=== PATIENT | male | born 1960 | race Caucasian/White ===

== ENCOUNTER 2025-02-11 16:10 | Inpatient (IN) | payer OTHER, SELFPAY ==
[2025-02-10] VITALS (7 sets, daily range): BP systolic 99–126; BP diastolic 68–81; BMI 32.2; BMI 31.7
[2025-02-10] MEDS: TYLENOL 1000 MG PO (16:27)
[2025-02-10 16:54] LABS: Hematocrit 45.2 % (39.0-52.0); Hemoglobin 15.6 g/dL (13.0-18.0); Mean Corp Hgb Conc. 34.5 g/dL (33.0-37.0); Mean Corpuscular Volume 88.5 fL (80.0-94.0); Nucleated Red Blood Cells % 0 % (-); Platelet Count 144 10^3/uL (130-400); Red Cell Dist. Width 12.7 % (11.5-14.5)
[2025-02-10 17:11] LABS: ALT (SGPT) 34 U/L (0-50); AST (SGOT) 51 U/L (17-59); Albumin 4.4 g/dl (3.5-5.0); Alkaline Phosphatase 93 U/L (38-126); Blood Urea Nitrogen 19 mg/dl (9-20); Calcium 9.5 mg/dl (8.4-10.2); Carbon Dioxide 22 mmol/L (22-30); Chloride 100 mmol/L (98-107); Glucose 163 mg/dl (70-99); Potassium 4.0 mmol/L (3.5-5.1); Sodium 132 mmol/L (135-145); Total Protein 7.3 g/dl (6.3-8.2); eGFR 56.48
[2025-02-10 17:12] LABS: COVID-19 Antigen Negative (Negative)
[2025-02-10 18:29] LABS: Urine Character Clear (Clear)
[2025-02-10] MEDS: NSS 1000 IV ×2 (18:30→21:04)
[2025-02-10 18:44] LABS: Urine Squamous Cell 0-2 /LPF (Few)
--- NOTE | 2025-02-10 18:57 | ED.GENMED ---
History of Present Illness
General
Chief Complaint: Fever
Source: patient and spouse
Exam Limitations: none
Time Seen by Provider: 02/10/25 17:38
Nursing documentation reviewed up to this point in time: agreed with
History of Present Illness
History of Present Illness:
65-year-old male with no reported chronic medical issues presents to the emergency department for evaluation of fever with myalgias and arthralgias. Patient reports that about 5 days ago he began feeling severe fatigue and myalgias and symptoms
have been persistent since then. He reports diffuse arthralgias associated and fevers with a Tmax of 103 �F. He has had mild cough, mild sore throat. He says he has had mild rhinorrhea. He has a mild headache. He denies any chest pain or
shortness of breath. He denies any abdominal pain. He has not had any nausea, vomiting, diarrhea although he has had generally poor appetite. He denies any dysuria, hematuria, change in urinary frequency. Today he noticed a diffuse rash which is
not painful or pruritic mainly on his back and his legs. He denies any recent travel. He denies any recent bug bites. His was recently sick with transient GI illness but none of the symptoms that patient is having today.
Past History
Past History
ED Past Medical History: None
ED Past Surgical History: None
Social History
Tobacco: Non-smoker
Alcohol: None
Drug: None
Living: with family
Employment: Employed
Review of Systems
Review of Systems
All Other Systems: ROS reviewed and negative except as documented in HPI and ROS
Constitutional: Reports fever, fatigue and chills
EENT: Reports sore throat and runny nose
Respiratory: Reports cough; Denies trouble breathing
Cardiac: Denies chest pain
ABD/GI: Reports anorexia; Denies abdominal pain, nausea, vomiting or diarrhea
: Denies dysuria, frequency, flank pain or dark urine
Musculoskeletal: Reports joint pain and muscle pain; Denies neck pain or back pain
Skin: Reports rash
Neurological: Reports headache; Denies dizzy
Phy Exam
Physical Exam
Physical Exam:
General: Awake, alert, oriented x3; no acute distress
Head: Normocephalic, atraumatic
Eyes: Conjunctiva normal, EOMI, pupils equal round reactive to light bilaterally
Ears: TMs clear bilaterally
Throat: Airway intact, handling secretions, moist mucous membranes with no oral lesions
Neck: Trachea midline, supple without meningismus
Lungs: Clear to auscultation bilaterally, no wheezing, rales, rhonchi
Heart: Regular rate and rhythm, no murmurs, gallops, or rubs�triage tachycardia resolved by my assessment
Abd: Soft, non distended, nontender to deep palpation with no masses
Neuro: No gross deficits
Skin: Patient has maculopapular rash across back as well as some scattered areas on the inner thighs bilaterally�rash spares face, palms, soles of the feet, no rash noted on chest or abdomen
Extremities: No edema in extremities, equal pulses in all extremities
Scores
Heart Failure Risk
Heart Failure Risk Score: Not Applicable
Heart Score for Chest Pain Patients
STEMI patient?: Not applicable
Withdrawal Assessment of Alcohol
Withdrawal Assessment Completed?: Not applicable
Sepsis
Sepsis Screening
Sepsis Assessment: Sepsis Ruled Out
Sepsis Screen
Sepsis Screen: Sepsis Ruled Out
Date: 02/10/25
Time: 21:00
Course
Orders/Labs/Results
Orders:
Orders
02/10/25 16:25
Acetaminophen [Tylenol] 1,000 mg .ROUTE .STK-MED ONE
02/10/25 16:27
Acetaminophen [Tylenol] 1,000 mg PO NOW STA
02/10/25 16:40
COVID-19 Antigen Urgent
Source: Nasal Swab
Complete Blood Count/With Diff Urgent
Comprehensive Metabolic Panel Urgent
Creatine Phosphokinase Urgent
Comment: ADD ON
Lactic Acid Q4H
Comment: ON ICE, CANCEL 2ND ORDER IF FIRST LACTIC ACID LEVEL <2
Lyme Progressive Urgent
Date Specimen was Collected: 02/10/25
Time Specimen was Collected: 16:23
Monotest Urgent
Comment: ADD ON
Blood Culture Q20M
BETSY Source: Blood/Venous
Specimen Description:
Comment: Urgent from separate sites. If patient screens positive for possible sepsis
INF RAPID [Influenza A+B Rapid Molecular] Urgent
BETSY Source: Nasal Swab
Specimen Description:
02/10/25 17:42
Add On- LAB Urgent
Tests Added?: CPK
0.9% Sodium Chloride 1000 ml [Nss] 1,000 ml IV BOLUS
CR Chest - 2 Views Urgent
Comment:
Reason For Exam: fatigue, fever
02/10/25 17:46
Urinalysis Reflex To Culture Urgent
Date Specimen was Collected: 02/10/25
Time Specimen was Collected: 16:23
Urine Microscopic Reflex Cult Urgent
Urine Culture Urgent
BETSY Source: U
Specimen Description:
Date Specimen was Collected: 02/10/25
Time Specimen was Collected: 16:23
02/10/25 17:51
Add On- LAB Urgent
Tests Added?: lyme progressive
02/10/25 19:05
Add On- LAB Urgent
Tests Added?: Monotest
02/10/25 19:13
Influenza A+B Rapid Molecular Urgent
BETSY Source: Nasal Swab
Specimen Description:
02/10/25 20:42
Lactic Acid Q4H
Comment: ON ICE, CANCEL 2ND ORDER IF FIRST LACTIC ACID LEVEL <2
Abnormal Lab Results
02/10/25 02/10/25
16:40 17:46
WBC 17.5 H 10^3/uL
(4.8-10.8)
MPV 10.9 H fL
(7.4-10.4)
Abs Immat Gran (auto) 0.1 H 10^3/uL
(0-0.05)
Absolute Neuts (auto) 14.5 H 10^3/uL
(1.4-6.5)
Absolute Lymphs (auto) 0.9 L 10^3/uL
(1.2-3.4)
Absolute Monos (auto) 2.0 H 10^3/uL
(0.1-0.6)
Immature Gran % 0.6 H %
(0-0.5)
Neutrophils % 82.8 H %
(42.2-75.2)
Lymphocytes % 5.1 L %
(20.5-51.1)
Monocytes % 11.3 H %
(1.7-9.3)
Sodium 132 L mmol/L
(135-145)
Creatinine 1.4 H mg/dL
(0.7-1.3)
Glucose 163 H mg/dl
(70-99)
Lactic Acid 2.1 H mmol/L
(0.7-2.0)
Total Bilirubin 1.5 H mg/dl
(0.2-1.3)
Creatine Kinase 201 H U/L
(55-170)
Urine Ketones 1+ A
(Negative)
Ur Occult Blood Reflex 4+ A
(Negative)
Urine Bilirubin 1+ A
(Negative)
Urine Urobilinogen 2+ A
(Neg - 1+)
Leukocyte Esterase Rfl 1+ A
(Negative)
Urine RBC 3-6 A /HPF
(0-2)
Urine Bacteria (Reflex) Few A
(Negative)
Urine Albumin (Reflex) 3+ A
(Neg - Trace)
02/10/25 16:40
02/10/25 16:40
Vital Signs
Initial and Last Documented VS:
Initial Vital Signs
Temp Pulse Resp BP Pulse Ox
39.6 C H 119 20 120/80 95
02/10/25 16:18 02/10/25 16:18 02/10/25 16:18 02/10/25 16:18 02/10/25 16:18
Last Documented Vital Signs
Temp Pulse Resp BP Pulse Ox
36.8 C 87 16 119/77 96
02/10/25 20:44 02/10/25 19:01 02/10/25 19:01 02/10/25 19:12 02/10/25 19:01
MDM/Problems Addressed
Differential Diagnosis Includes:
Viral illness, pneumonia, UTI, Lyme's, vasculitis, bacteremia
MDM/Problems Addressed:
65-year-old male presents for evaluation of fever with myalgias and arthralgias, fatigue as well as some URI symptoms. He is tachycardic and febrile on arrival here although vital signs have normalized by my assessment after receiving Tylenol in
triage. Physical exam is as above. Suspect that this is likely viral illness, rash is very consistent with viral rash. He had lab work sent in triage including a CBC which did show a leukocytosis to 17.5. His CMP shows renal insufficiency with a
creatinine of 1.4�no baseline available for comparison. He has a marginal elevation of T. bili but normal AST and ALT, normal alk phos. CPK marginal. His urinalysis is positive for hematuria, positive for bilirubin as well. COVID swab negative.
His lactate is 2.1.
COVID and flu swabs are negative. Monospot is negative. Chest x-ray shows no acute disease. Clinical reassessment heart rate 80-90, no fever, normotensive. I do think this is likely a viral illness especially with no clear bacterial source
identified however on reassessment some of his rash appears to be slightly petechial and he has multiple SIRS criteria with abnormal renal function, elevated lactate and bilirubin level�concern/main differential would be sepsis. Vasculitis also
consideration. I do think he should be admitted to follow-up blood cultures, trend labs. Case discussed with hospitalist for admission. Will defer to hospitalist on empiric antibiotics at this point with no clear bacterial source of infection
identified and stable hemodynamics.
*Radiology
Radiology exam reviewed: preliminary read by ED provider
*Pulse Oximetry
SaO2: 95
Oxygen Mode of Delivery: Room air
Patient hypoxic: no (95%)
*Critical Care Note
Total Time (30-74mins, 75-104mins- exclusive of procedures): Not Applicable
Data Reviewed
Source: patient and spouse
Patient Management
Discussion with other providers: Hospitalist (Discussed with hospitalist)
Escalation/DeEscalation of care consider admission/obs:
Admission indicated
ED Attending Note
-
Portions of this chart may have been created with voice recognition software.� Occasional wrong word or��sound alike� substitutions may have occurred due to the inherent limitations of voice recognition software.
Discharge Plan
Departure
Patient Disposition: Admit
Date of Disposition: 02/10/25
Time of Disposition: 20:54
Admit to doctor: Gigi
Presentation/result/management discussed w/ accepting MD/DO: Hospitalist
Discharge Problem:
Fever, Rash
Prescriptions:
No Action
No Current Medications
0
Referrals:
NONE,* [Family Provider, Internal Medicine]
Interventions
Interventions:
*Risk Screen - Suicide Last Done: 02/10/25 16:18
*General Assessment Last Done: 02/10/25 17:44
*Neglect/Abuse Screening Last Done: 02/10/25 16:18
*ED- Fall Risk Assessment Last Done: 02/10/25 17:44
*ED COVID-19 Vaccine History Last Done: 02/10/25 17:44
ED- Neurological Assessment Last Done: 02/10/25 17:52
ED-Skin Assessment Last Done: 02/10/25 17:53
Discharge Date and Time
Print Language: SINHALA
--- NOTE | 2025-02-10 22:17 | HPS.HSE ---
Family Physician
-
Family Physician: * NONE
Chief Complaint
-
Fever / Myalgias
History of Present Illness
Patient is a 65y M with no significant PMH who presents to ED complaining of 5 days of fevers, myalgias and malaise. Patient states that he has had fever at home, mild sore throat and mild cough productive of clear mucus. He notes diffuse muscle
and joint aches. His was recently ill - but with primarily GI symptoms of which patient has none. No recent travel. He has two cats at home who do spend time out of doors. He is not an avid outdoorsman himself. No noted insect bites or
removed ticks, etc. Today he noted a red, non-itchy rash over his trunk and extremities.
Patient has been taking Advil with minimal relief of his symptoms and presents to the ED today for evaluation.
Medical History
Past Medical History
Past Medical History: Reports None
Past Surgical History: Reports Other
Additional Past Surgical History:
T&A
Social History
Tobacco: Non-smoker
Alcohol: Occasional
Drug: None
Personal:
Family History
Family History: Not pertinent
Allergies / Home Medications
Allergies reflects when Allergies were last updated in [employer].
Home Medications with original date entered in [employer]
Allergy/Medication List:
Allergies
Allergy/AdvReac Type Severity Reaction Status Date / Time
No Known Allergies Allergy Verified 02/10/25 16:18
Home Medications
ibuprofen 200 mg tablet 400 mg PO BIDPRN PRN mild pain 02/10/25
Review of Systems
-
History Source: Patient
A 12 point ROS was completed and negative except as noted: Yes
Constitutional: Reports Fever, Fatigue and Chills
EENT: Reports Sore Throat
Respiratory: Reports Cough; Denies Trouble Breathing
Cardiac: Denies Chest Pain or Palpitations
Abdomen/GI: Denies Abdominal Pain, Nausea, Vomiting or Diarrhea
: Denies Dysuria, Frequency or Flank Pain
Musculoskeletal: Reports Joint Pain and Muscle Pain; Denies Edema
Neurological: Denies Dizzy or Headache
Psych: Denies Depression or Anxiety
Physical Exam
Vital Signs
Vital Signs
Temp Pulse Resp BP Pulse Ox
98.3 F 87 16 121/68 96
02/10/25 20:44 02/10/25 19:01 02/10/25 19:01 02/10/25 21:00 02/10/25 19:01
Physical Exam
General: Other (65y M covered in multiple blankets.)
HEENT: Moist mucous membranes and PERRLA
Respiratory: Clear; No Wheezes, Rales or Rhonchi
Cardiac: S1/S2, Regular Rhythm and Tachycardia; No Murmur
GI: Soft, Non Tender, Non Distended and Normal Bowel Sounds
Musculoskeletal: No Clubbing, No Cyanosis and No Edema
Skin: Other (Diffuse maculopapular rash over trunk and extremities. Not raised / crusted. No blisters / bullae.)
Neuro: AO x 3
Laboratory Results
-
02/10/25 16:40
02/10/25 16:40
Laboratory Results
Lactic Acid 2.2 mmol/L (0.7-2.0) H 02/10/25 20:42
Total Bilirubin 1.5 mg/dl (0.2-1.3) H 02/10/25 16:40
AST 51 U/L (17-59) 02/10/25 16:40
ALT 34 U/L (0-50) 02/10/25 16:40
Alkaline Phosphatase 93 U/L (38-126) 02/10/25 16:40
Impression/Plan
-
A/P: Patient is a 65y M with no significant PMH who presents to ED complaining of 5 days of fevers and myalgias.
Febrile Illness
Rash
- Observe overnight for further evaluation and treatment.
- Suspect viral process with fever, rash, etc.
- Rule out Lyme, etc. Possible bronchitis.
- CXR unremarkable. COVID negative. Flu negative.
- UA not suggestive of infection.
- Cover with doxycycline for now.
- IVF support, antipyretics, etc.
- Follow fever curve, culture data , etc.
- ID evaluation for additional recommendations.
GEE v CKD
- SCr = 1.4 with no prior values for comparison.
- ? GEE due to acute illness and NSAID use?
- Hold NSAIDs acutely.
- IVFs as noted above.
- Follow renal function for 48-72 hours to establish baseline.
DVT Prophylaxis: SCDs
Code Status: Full
[2025-02-10] MEDS: LR 1000 IV (23:59)
[2025-02-11] MEDS: TYLENOL 650 MG PO ×4 (01:09→19:19)
[2025-02-11 01:35] VITALS: BP 109/74
--- NOTE | 2025-02-11 02:07 | PTCARENOTE ---
2324 pt is aaox3, [id number] BB=812, reports of headache 08/13. pt states he has a decrease appetite and possible weight loss but is unsure. pt has a rash all over - states he didn't notice it until he was in the emergency room and says it is not
itchy. pt has an occasional dry cough, lungs CTA. covid, flu, and mono all negative.
pt HR 113 - EKG - performed: SINUS TACHYCARDIA
S/w DAVID Berkowitz - obtain orders for blood cultures.
0113 [id number]=[id number], HR110, KD=380/74. administered Tylenol
[2025-02-11 05:24] VITALS: BMI 31.7
[2025-02-11 05:25] VITALS: BP 104/73
[2025-02-11 05:52] LABS: Hematocrit 41.7 % (39.0-52.0); Hemoglobin 14.3 g/dL (13.0-18.0); Mean Corp Hgb Conc. 34.3 g/dL (33.0-37.0); Mean Corpuscular Volume 90.1 fL (80.0-94.0); Platelet Count 127 10^3/uL (130-400); Red Cell Dist. Width 13.2 % (11.5-14.5)
[2025-02-11 06:06] LABS: Blood Urea Nitrogen 20 mg/dl (9-20); Calcium 8.8 mg/dl (8.4-10.2); Carbon Dioxide 22 mmol/L (22-30); Chloride 105 mmol/L (98-107); Estimated Creatinine Clearance 70 ml/min; Glucose 123 mg/dl (70-99); Potassium 4.4 mmol/L (3.5-5.1); Sodium 135 mmol/L (135-145); eGFR > 60.00
[2025-02-11 07:22] VITALS: BP 128/76
[2025-02-11] MEDS: LR 1000 IV ×3 (08:45→21:28)
[2025-02-11] MEDS: VIBRAMYCIN 100 MG PO ×2 (08:47→19:19)
--- NOTE | 2025-02-11 10:50 | CON.ID ---
Consultation
-
Date/Time Consultation Requested: February 10, 2025 [id number]
Date/Time Consultation Performed: February 11, 2025 1050
Requesting Provider: Dr. Mike Luis
Performing Provider: Dr. Paulina Gomez
Reason for Consultation: Fever
Chief Complaint / Past History
Chief Complaint
Fever
History of Present Illness
65-year-old male without past medical history who presented to the ED last night February 10 due to persistent fever. He reports fevers started approximately 6 days ago with associated chills. He complains of profound myalgias. Positive weakness.
Positive sore throat, and mild cough nonproductive. No shortness of breath. Positive mild rhinorrhea. No sinus congestion. No headaches. No nausea vomiting abdominal pain or diarrhea. No urine symptoms. He did not notice the rash until he
came to the ER. Patient has diffuse rash that is nonpruritic. He states he lives near the [facility]. He has 2 cats that go outside. His recently had GI illness. No other ill contacts. No travel history.
Past History
Past Medical History: None
Additional Past Surgical History:
Tonsillectomy
Allergy History:
No Known Allergies Allergy (Verified 02/10/25 16:18)
Medications Reviewed: Yes
Current Antibiotics:
Doxycycline 100mg po bid
Social History
Tobacco: Non-Smoker
Alcohol: Occasional
Drug: None
Personal:
Living: With Family (2 cats)
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
Family History
Family History: Not Pertinent
Review of Systems
Review of Systems
General: Fever and Chills
HEENT: Pharyngitis; Negative Headache
Respiratory: Cough; Negative Sputum Production
Gasteroenterology: Negative Nausea, Vomiting or Diarrhea
Genital / Urological: Negative Dysuria or Flank Pain
Endocrine: Weakness
Musculoskeletal: Myalgias
Skin / Hair / Nails: Rash
Neurological: Negative Dizziness
Vital Signs
Temp Pulse Resp BP Pulse Ox
101.1 F H 110 20 128/76 95
02/11/25 07:22 02/11/25 07:22 02/11/25 07:22 02/11/25 07:22 02/11/25 07:22
Selected Entries
02/10/25
16:18 02/11/25
01:13
Temp 103.2 F H 103 F H
Physical Exam
Physical Exam
Constitutional: No Acute Distress
Head: Other (No frontal or maxillary sinus tenderness)
Eyes: No Conjunctival Hemorrhage and Sclera Anicteric
Pharynx: Benign
Oral: No Ulcers
Cardiovascular: Regular Rate and S1/S2
Pulmonary: Clear
Gastrointestinal: Soft, Non Tender, Non Distended and Normal Bowel Sounds
Genito-Urinary: Negative CVA Tenderness
Extremities: Negative Edema
Musculoskeletal: Negative Joint Swelling, Joint Effusion or Spinal Tenderness
Skin: Other (Diffuse macular pink rash on chest, back, heart upper arms, feet but not palms and soles, lower extremities. Some of the rash with target lesions.)
Neurological: AO x 3
Lab / Diagnostic Study Results
02/11/25 05:32
02/11/25 05:32
Abs Immat Gran (auto) 0.1 10^3/uL (0-0.05) H 02/10/25 16:40
Absolute Neuts (auto) 14.5 10^3/uL (1.4-6.5) H 02/10/25 16:40
Absolute Lymphs (auto) 0.9 10^3/uL (1.2-3.4) L 02/10/25 16:40
Absolute Monos (auto) 2.0 10^3/uL (0.1-0.6) H 02/10/25 16:40
Absolute Basos (auto) 0.0 10^3/uL (0-0.2) 02/10/25 16:40
Immature Gran % 0.6 % (0-0.5) H 02/10/25 16:40
Neutrophils % 82.8 % (42.2-75.2) H 02/10/25 16:40
Lymphocytes % 5.1 % (20.5-51.1) L 02/10/25 16:40
Monocytes % 11.3 % (1.7-9.3) H 02/10/25 16:40
Eosinophils % 0.0 % (0-6) 02/10/25 16:40
Basophils % 0.2 % (0-2) 02/10/25 16:40
Lactic Acid 2.0 mmol/L (0.7-2.0) 02/11/25 05:32
Ur Squamous Epith Cells 0-2 /LPF (Few) 02/10/25 17:46
Microbiology Results
Micro:
02/11/25 06:05 Respiratory Culture - Final
Sputum Gram Stain - Final
02/11/25 01:34 Blood Culture - Pending
Blood/Venous
02/11/25 00:59 Blood Culture - Pending
Blood/Venous
02/11/25 00:59 Blood Parasites Smear - Pending
Blood/Venous
02/10/25 19:13 Influenza Types A & B (BESS) - Final
Nasal Swab Negative for Influenza A & B, NAAT
Negative results must be combined with clinical observations
and patient history.
Nucleic Acid Amplification test (NAAT)performed on the
[employer] ID NOW platform.
02/10/25 17:46 Urine Culture - Pending
Urine
02/10/25 16:40 Blood Culture - Pending
Blood/Venous
02/10/25 16:40 Influenza Types A & B (BESS) - Final
Nasal Swab Negative for Influenza A & B, NAAT
Negative results must be combined with clinical observations
and patient history.
Nucleic Acid Amplification test (NAAT)performed on the
[employer] ID NOW platform.
02/10/25 CXR: No radiographic evidence for pneumonia.
Assessment / Plan
# Fever
# leukocytosis
# Diffuse rash
# Pharyngitis/bronchitis
-CXR negative
- Blood cx's pending
- Doubt tick-borne illness, but Lyme, babesia, RMSF, Anaplasma, Ehrlichia work-up labs pending.
- Check for rapid Group A strep
- Rash - suspect erythema multiforme
Probably Mycoplasma illness
- Continue doxycycline po
-Trend fever/wbc.
Care Review
Plan reviewed with: Physician (Dr. Velasco)
[2025-02-11] MEDS: LOVENOX SC (14:42)
--- NOTE | 2025-02-11 15:25 | W.PN.HOSP.TC ---
Today's Communication/Plan
-
CT scan of chest
Assessment / Plan
Assessment / Plan
-CXR negative
- Blood cx's pending
- Doubt tick-borne illness, but Lyme, babesia, RMSF, Anaplasma, Ehrlichia work-up labs pending.
- Check for rapid Group A strep
- Rash - suspect erythema multiforme
Probably Mycoplasma illness
- Continue doxycycline po
-Trend fever/wbc.
A/P: Patient is a 65y M with no significant PMH who presents to ED complaining of 5 days of fevers and myalgias.
Sepsis with fever, leukocytosis, Lactic Acidosis, rash of mycoplasma vs viral origin felt to be most likely
Febrile Illness
Rash
- Suspect viral process with fever, rash, etc.
- Rule out Lyme, etc. Possible bronchitis.
- CXR unremarkable. COVID negative. Flu negative.
- UA not suggestive of infection.
- Cover with doxycycline for now.
- IVF support, antipyretics, etc.
- Follow fever curve, culture data , etc.
- ID evaluation for additional recommendations. Reviewed with Dr. Gomez, input appreciated
Will order noncontrast CT scan of chest, probably atelectatic rales, though concern for early viral/mycoplasma PNA. No evidence of meningeal signs, thus LP is not warranted at this time
WBC 17.5-->18.5
Lactic Acid 2.2-->2.2-->2.0
GEE v CKD
- SCr = 1.4-->1.2
better, will continue IVF
- ? GEE due to acute illness and NSAID use?
- Hold NSAIDs acutely.
- IVFs as noted above.
- Follow renal function for 48-72 hours to establish baseline.
DVT Prophylaxis: SCDs
change status to full admit
Code Status: Full
Anticipated Discharge: 24 - 48 hours
Subjective/Interval History
-
Date of Service: February 11, 2025
Does not yet feel well, but not as ill as last evening
Objective Data
-
Labs:
Laboratory Results
02/11/25
05:32
WBC 18.5 H
Hgb 14.3
Hct 41.7
Plt Count 127 L
Sodium 135
Potassium 4.4
Chloride 105
Carbon Dioxide 22
BUN 20
Creatinine 1.2
Glucose 123 H
Calcium 8.8
Vital Signs:
Vital Signs
Temp Pulse Resp BP Pulse Ox
101.1 F H 110 20 128/76 99
02/11/25 07:22 02/11/25 07:22 02/11/25 07:22 02/11/25 07:22 02/11/25 08:45
I&O
02/10/25 02/11/25 02/12/25
06:59 06:59 06:59
Intake Total 1794
Balance 1794
Review of Systems
-
History Source: Patient and Family ( at bedside)
Constitutional: Reports Fever (103.2 on admission, 101.1 this morning, 100.7 currently)
EENT: Reports No Symptoms Reported
Respiratory: Reports Cough (on deep inspirations)
Cardiac: Reports No Symptoms; Denies Chest Pain
Abdomen/GI: Reports No Symptoms
Genitourinary: Reports No Symptoms
Musculoskeletal: Reports No Symptoms
Neuro: Reports No Symptoms
Physical Exam
-
General: Well Developed, Well Nourished and No Apparent Distress
HEENT: Normocephalic, Atraumatic, Moist Mucous Membranes and Other (no nuchal rigidity)
Respiratory: Rales (bibasilar atelectatic rales on deep inspiration); Negative Wheezes
Cardiac: Regular Rhythm and S1/S2
GI: Soft, Nontender and Nondistended
Skin: Warm, Dry and Rash (diffuse macular rash)
Neuro: Awake, Alert and Oriented
[2025-02-11 15:28] VITALS: BP 149/95
--- NOTE | 2025-02-11 17:19 | CM ---
Pt off floor . ATKINS letter left at bedside. IA needed.
[2025-02-11 23:00] VITALS: BP 112/75
[2025-02-12] MEDS: TYLENOL 650 MG PO ×3 (03:38→13:50)
[2025-02-12] MEDS: LR 1000 IV ×3 (05:44→23:57)
[2025-02-12 06:56] LABS: Hematocrit 36.8 % (39.0-52.0); Hemoglobin 12.5 g/dL (13.0-18.0); Mean Corp Hgb Conc. 34.0 g/dL (33.0-37.0); Mean Corpuscular Volume 89.1 fL (80.0-94.0); Platelet Count 120 10^3/uL (130-400); Red Cell Dist. Width 13.2 % (11.5-14.5)
[2025-02-12 07:00] VITALS: BP 121/71
[2025-02-12 07:03] LABS: ALT (SGPT) 26 U/L (0-50); AST (SGOT) 50 U/L (17-59); Albumin 2.9 g/dl (3.5-5.0); Alkaline Phosphatase 80 U/L (38-126); Blood Urea Nitrogen 19 mg/dl (9-20); Calcium 9.0 mg/dl (8.4-10.2); Carbon Dioxide 22 mmol/L (22-30); Chloride 103 mmol/L (98-107); Estimated Creatinine Clearance 84 ml/min; Glucose 121 mg/dl (70-99); Potassium 4.1 mmol/L (3.5-5.1); Sodium 132 mmol/L (135-145); Total Protein 5.5 g/dl (6.3-8.2); eGFR > 60.00
[2025-02-12 07:50] LABS: Reticulocyte Count 1.5 % (0.4-2.8)
[2025-02-12 07:57] LABS: LDH 352 U/L (120-246)
[2025-02-12] MEDS: LOVENOX SC (08:17)
[2025-02-12] MEDS: VIBRAMYCIN 100 MG PO ×2 (08:18→20:28)
[2025-02-12 08:29] LABS: Absolute Neutrophils -Man Diff 17.5 10^3/uL (1.4-6.5); Normal RBC Morphology Yes; Platelets Checked Yes; Total Cells Counted 100
--- NOTE | 2025-02-12 12:26 | W.PN.HOSP.TC ---
Addendum entered and electronically signed by Rigoberto Delcid MD 02/12/25 13:12:
mild thrombocytopenia
suspect reactive
check platelet associated Ab
Original Note:
Today's Communication/Plan
-
see PN
Assessment / Plan
Assessment / Plan
65yo M with no significant PMx came with 5 days of generalized malaise and fevers, developed macular radh on body. Also myalgia and arthralgia. Later signs of R eye conjuctivitis. Concern for viral disease vs thick-borne illness
A/P:
#Fever, macular non-pruritic rash
Doxy as per ID, since initially concern for mycoplasma pneumonia
Mononucleosis test neg
check lyme, blood for parasites, syphilis, HIV, Anaplasma/Erlychia, [place] spotted fever
Check LILIANA level
follow CBC
7 mm and 6 mm solid pulmonary nodules in the right middle lobe along the minor fissure with mild mediactinal lympadenopathy. Pulm consult
IVF
#b/l thyroid nodules
check TSH
outpatient US
#Mild indirect bilirubinemia
LDH in 300th - follow tred
most likely 2/2 acute disease
follow LFT
DVT ppx Lovenox
Full code
I have spent at least 58min reviewing chart, test results, communication with consultants and providing direct patient care
Anticipated Discharge: > 48 hours
Subjective/Interval History
-
Date of Service: February 12, 2025
Objective Data
-
Labs:
Laboratory Results
02/12/25 02/12/25
06:14 11:21
WBC 19.5 H Cancelled
Hgb 12.5 L Cancelled
Hct 36.8 L Cancelled
Plt Count 120 L Cancelled
Sodium 132 L
Potassium 4.1
Chloride 103
Carbon Dioxide 22
BUN 19
Creatinine 1.0
Glucose 121 H
Calcium 9.0
Total Bilirubin 1.5 H
AST 50
ALT 26
Alkaline Phosphatase 80
Vital Signs:
Vital Signs
Temp Pulse Resp BP Pulse Ox
99.7 F 114 20 121/71 99
02/12/25 07:00 02/12/25 07:00 02/12/25 07:00 02/12/25 07:00 02/12/25 08:20
I&O
02/11/25 02/12/25 02/13/25
06:59 06:59 06:59
Intake Total 1794 2460 / 246
Balance 1794 246 / 246
Review of Systems
-
History Source: Patient
All other systems: Reviewed and negative
Physical Exam
-
General: No Apparent Distress
HEENT: Normocephalic
Respiratory: Clear to Auscultation
Cardiac: Regular Rhythm
GI: Soft, Nontender and Nondistended
Skin: Rash
Neuro: Awake, Alert, Oriented and AO x 3
Psych: Calm
--- NOTE | 2025-02-12 14:25 | W.PN.ID1 ---
Date of Service
Date of Service: February 12, 2025
Today's Communication
Check [employer] [facility] resp virus panel
Assessment / Plan
# Fever - persists
# leukocytosis - trended up
# Diffuse rash - progress
# New Right conjunctivitis
# Pharyngitis/bronchitis
-CXR negative
- Blood cx's neg to date
- rapid Group A strep: negative
- Doubt tick-borne illness, but Lyme, babesia, RMSF, Anaplasma, Ehrlichia work-up labs pending.
- Syphilis pending
- Pt agreeable to HIV screen
- ? viral illness such as adenovirus, coxsackie
Ordered [employer] [facility] respiratory viral PCR panel
- ?mycoplasma/chlamydia
Continue empiric doxycyline for now.
- Trend temps/wbc/plt
Chief Complaint
-: Fever
Subjective / Review of Systems
Feels same with fatigue, myalgia. Sore throat improved. Rash progressed.
Vital Signs / Physical Exam
Vital Signs
Vital Signs
Temp Pulse Resp BP Pulse Ox
99.7 F 114 20 121/71 99
02/12/25 07:00 02/12/25 07:00 02/12/25 07:00 02/12/25 07:00 02/12/25 08:20
Selected Entries
02/12/25
03:30
Temp 102.2 F H
Physical Exam
Constitutional: No Acute Distress and Comfortable
Head: Other (No frontal or maxillary sinus tenderness)
Eyes: Other (right conjunctivitis )
Oropharyngeal: Negative Exudate or Ulcers
Cardiovascular: Regular Rate and S1/S2
Pulmonary: Clear
Gastrointestinal: Soft, Non Tender, Non Distended and Normal Bowel Sounds
Genito-Urinary: Negative CVA Tenderness
Extremities: Negative Edema
Skin: Rash (Diffuse morbilliform rash limbs, torso, chest, abd; some annular ringform rash)
Neurological: AO x 3
Objective Data
Lab Data
Lab Results
02/12/25 11:21
02/12/25 06:14
ESR 42 mm/hour (0-20) H 02/12/25 06:14
Estimated Creat Clear 84 ml/min 02/12/25 06:14
Lactic Acid 2.0 mmol/L (0.7-2.0) 02/11/25 05:32
Total Bilirubin 1.5 mg/dl (0.2-1.3) H 02/12/25 06:14
AST 50 U/L (17-59) 02/12/25 06:14
ALT 26 U/L (0-50) 02/12/25 06:14
Alkaline Phosphatase 80 U/L (38-126) 02/12/25 06:14
Most recent labs reviewed.
Micro Results:
02/10/25 17:46 Urine Culture - Final
Urine NO GROWTH
02/11/25 15:15 Streptococcus Screen (BETSY) - Preliminary
Throat/Pharynx Culture in Progress
Streptococcus Rapid Screen - Final
Rapid Strep Screen (Group A) Negative
02/11/25 01:34 Blood Culture - Preliminary
Blood/Venous No Growth in 24 hours- Final report to follow
02/11/25 00:59 Blood Culture - Preliminary
Blood/Venous No Growth in 24 hours- Final report to follow
02/10/25 16:40 Blood Culture - Preliminary
Blood/Venous No Growth in 24 hours- Final report to follow
02/11/25 06:05 Respiratory Culture - Final
Sputum Gram Stain - Final
02/11/25 00:59 Blood Parasites Smear - Pending
Blood/Venous
02/10/25 19:13 Influenza Types A & B (BESS) - Final
Nasal Swab Negative for Influenza A & B, NAAT
Negative results must be combined with clinical observations
and patient history.
Nucleic Acid Amplification test (NAAT)performed on the
[employer] NOW platform.
02/10/25 16:40 Influenza Types A & B (BESS) - Final
Nasal Swab Negative for Influenza A & B, NAAT
Negative results must be combined with clinical observations
and patient history.
Nucleic Acid Amplification test (NAAT)performed on the
[employer] platform.
02/10/25 CXR: No radiographic evidence for pneumonia.
Care Review
Plan reviewed with: Physician (Dr. Delcid)
[2025-02-12 14:45] VITALS: BP 108/58
--- NOTE | 2025-02-12 14:45 | PTCARENOTE ---
02/12- Administered Tylenol PRN as ordered for 99.7 fever ~70minutes ago. Patient now has chills, is lethargic, and current T=101.2. Notified Physician. Administered 2 ice packs. Continuing fluids as ordered. Continue to monitor.
[2025-02-12 15:00] VITALS: BP 122/83
[2025-02-12 16:29] LABS: Ferritin 9620.0 ng/ml (17.9-464.0)
--- NOTE | 2025-02-12 16:52 | CON.PUL ---
Consultation
Consultation Request
Date/Time Consultation Requested: 02/12
Date/Time Consultation Performed: 02/12
Reason for Consultation: Pulmonary nodule
Medical History
-
History of Present Illness:
History obtained from the patient also reviewing records. Patient 65-year-old male without significant past medical history presents with 5 days of fevers, myalgias, general weakness. He also describes muscle and joint aches. He admits to recent
sick contact with his . He has 2 cats at home, denies significant insect bites, however he developed a rash over the last 24 hours. Upon arrival to [facility], temperature 39.6, pulse 119, breathing at 20, blood pressure 120/80, 95%.
Creatinine was 1.4. COVID and flu swabs negative. Chest x-ray without acute findings. CT chest was obtained which showed nodular abnormality which we are asked to comment on. Hospital course reviewed. Workup negative to date
Patient admits to developing a rash on the day of his first hospital stay. He denies any travel. He denies any recurrent pneumonias, skin infections. He admits to chronic postnasal drip.
He admits to questionable gasping with sleeping which he is only noticed over the past 5 days. He denies any weight loss. He is up-to-date with his colonoscopy
.
PMH: None
Past Medical History
Past Medical History: None (See above)
Past Surgical History: None (See above)
Social History
Tobacco: Non-smoker (Minimal as a teenager)
Alcohol: Occasional
Drug: None
Personal:
Living: With Family
Employment: Employed ([employer])
Family History
Family History: Other (2 children healthy. 2 siblings healthy. Family history negative for cancer)
Allergies / Home Medications
Allergies
Allergy/AdvReac Type Severity Reaction Status Date / Time
No Known Allergies Allergy Verified 02/10/25 16:18
Home Medications
�Medication �Instructions �Recorded �Confirmed �Last Taken �Type
ibuprofen 200 mg tablet 400 mg PO BIDPRN PRN mild pain 02/10/25 02/10/25 02/10/25 History
turmeric-turmeric root extract 1 DAILY PRN ALLERGIES 02/11/25 Unknown History
Review of Systems
-
All other systems: Negative unless noted
Vitals / Labs / Diagnostic Testing
Vital Signs
Temp Pulse Resp BP Pulse Ox
102.8 F H 111 20 122/83 92
02/12/25 15:00 02/12/25 15:00 02/12/25 15:00 02/12/25 15:00 02/12/25 15:00
Lab Data
02/12/25 11:21
02/12/25 06:14
Microbiology
02/10/25 16:40 Blood/Venous Blood Culture - Preliminary
No Growth in 48 hours- Final report to follow
02/10/25 17:46 Urine Urine Culture - Final
NO GROWTH
02/11/25 15:15 Throat/Pharynx Streptococcus Screen (BETSY) - Preliminary
Culture in Progress
02/11/25 15:15 Throat/Pharynx Streptococcus Rapid Screen - Final
Rapid Strep Screen (Group A) Negative
02/11/25 01:34 Blood/Venous Blood Culture - Preliminary
No Growth in 24 hours- Final report to follow
02/11/25 00:59 Blood/Venous Blood Culture - Preliminary
No Growth in 24 hours- Final report to follow
02/11/25 06:05 Sputum Respiratory Culture - Final
02/11/25 06:05 Sputum Gram Stain - Final
02/10/25 19:13 Nasal Swab Influenza Types A & B (BESS) - Final
Negative for Influenza A & B, NAAT
Negative results must be combined with clinical observations
and patient history.
Nucleic Acid Amplification test (NAAT)performed on the
[employer] platform.
02/10/25 16:40 Nasal Swab Influenza Types A & B (BESS) - Final
Negative for Influenza A & B, NAAT
Negative results must be combined with clinical observations
and patient history.
Nucleic Acid Amplification test (NAAT)performed on the
[employer] NOW platform.
Diagnostic Testing:
Physical Exam
-
HEENT: Normocephalic, Anicteric and Other (Mild erythematous conjunctivitis on the right)
Cardiovascular: S1/S2, Regular Rhythm, Murmur (n), Rub (n) and Peripheral Edema (n)
Respiratory: Wheeze (n), Rales (n), Rhonchi (n) and Non-Labored Respirations (n)
GI: Soft, Non Distended and Non Tender
Neurology: Awake, Alert, Oriented and No Motor Deficits
Skin: Warm and Other (Macular rash involving the back, arms)
General: Comfortable
Assessment
-
65-year-old male with 5-day history of fevers, 24 hours of diffuse rash, right conjunctivitis, myalgias. CT chest with nodule. We are asked to comment
7 mm right middle lobe nodule
Mediastinal adenopathy, 2.4 cm subcarinal lymph node
URI symptoms, viral symptoms x 5 days
Fevers
Leukocytosis
Diffuse macular rash
Mild hyponatremia
Thyroid nodule
Suspected sleep disordered breathing
Plan/recommendations
At this time, patient appears to be comfortable
Diffuse macular rash noted
No obvious painful nodules
Mild right eye conjunctivitis noted
Reviewed CT findings
Workup negative to date, infectious disease following
Consider inflammatory process such as autoimmune disease, sarcoid given adenopathy
For now would recommend follow-up CT chest in 3 months with pulmonary follow-up
Depending on clinical course, may be worth obtaining skin biopsy as this may be diagnostic
Reviewed with patient at length
Will follow
--- NOTE | 2025-02-12 19:04 | W.PN.UPDATE ---
Update Note
Progress Note Update
WIth significantly elevated ferritin, fevers wirthout signs of over infection, artalgia, transaminitis and neurtophilic leukocytosis accompanied with macular confluent rash - concered for mild-moderate AOSD. STart motrin 600mg TID scheduled and
monitor. PPI ppx initiated
WIth no neurological symptoms and no cytopenias - currently no concern for MAS. WIll closely monitor
[2025-02-12] MEDS: FLEXERIL 5 MG PO (20:28)
[2025-02-12] MEDS: MOTRIN 600 MG PO (20:33)
[2025-02-12 23:00] VITALS: BP 109/71
[2025-02-13 05:56] LABS: Hematocrit 38.0 % (39.0-52.0); Hemoglobin 12.9 g/dL (13.0-18.0); Mean Corp Hgb Conc. 33.9 g/dL (33.0-37.0); Mean Corpuscular Volume 88.6 fL (80.0-94.0); Platelet Count 152 10^3/uL (130-400); Red Cell Dist. Width 13.4 % (11.5-14.5)
[2025-02-13 06:00] VITALS: BMI 33.1
[2025-02-13 06:20] LABS: ALT (SGPT) 26 U/L (0-50); AST (SGOT) 45 U/L (17-59); Albumin 2.9 g/dl (3.5-5.0); Alkaline Phosphatase 102 U/L (38-126); Blood Urea Nitrogen 23 mg/dl (9-20); Calcium 9.3 mg/dl (8.4-10.2); Carbon Dioxide 23 mmol/L (22-30); Chloride 102 mmol/L (98-107); Estimated Creatinine Clearance 86 ml/min; Glucose 123 mg/dl (70-99); LDH 405 U/L (120-246); Potassium 3.7 mmol/L (3.5-5.1); Sodium 131 mmol/L (135-145); Total Protein 5.5 g/dl (6.3-8.2); eGFR > 60.00
[2025-02-13] MEDS: PROTONIX 40 MG PO (06:22)
[2025-02-13 07:30] VITALS: BP 153/84
[2025-02-13 07:40] LABS: Nucleated Red Blood Cells % 0 % (-)
[2025-02-13] MEDS: LR IV (07:40)
[2025-02-13 07:41] LABS: Absolute Neutrophils -Man Diff 17.6 10^3/uL (1.4-6.5)
[2025-02-13] MEDS: VIBRAMYCIN 100 MG PO ×2 (07:41→20:51)
[2025-02-13] MEDS: MOTRIN 600 MG PO ×3 (07:41→20:56)
[2025-02-13 07:42] LABS: Normal RBC Morphology Yes; Platelets Checked Yes; Total Cells Counted 100
[2025-02-13 08:24] LABS: Ferritin > 10000.0 ng/ml (17.9-464.0)
[2025-02-13] MEDS: OMNIPAQUE 50 ML PO (09:25)
--- NOTE | 2025-02-13 09:25 | W.PN.HOSP.TC ---
Today's Communication/Plan
-
cont current mgmt
CT abd/pelvis
Assessment / Plan
Assessment / Plan
65yo M with no significant PMx came with 5 days of generalized malaise and fevers, developed macular radh on body. Also myalgia and arthralgia. Later signs of R eye conjuctivitis. Concern for viral disease vs thick-borne illness
A/P:
#Fever, macular non-pruritic rash, artralgia
Doxy as per ID, since initially concern for mycoplasma pneumonia
Mononucleosis test neg
check lyme, blood for parasites (prelim neg), syphilis, HIV, Anaplasma/Ehrlichia, lam[place] mountain spotted fever, parvovirus, hepatitis panel
Check LILIANA level, ANTONI
follow CBC
7 mm and 6 mm solid pulmonary nodules in the right middle lobe along the minor fissure with mild mediastinal lymphadenopathy. Pulm consult: consider sarcoid
CT abd/pelvis as per recommendation from ID for fever w/u
With significantly elevated ferritin - also concern for AOSD. Started scheduled Ibuprofen with PPI. If infection w/u will remain neg - will plan to switch to steroids as they used for wider list of autoimmune conditions and advise outpatient
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
#transient thrombocytopenia
resolved
direct antiplatelet Ab sent
#mild hyponatremia
follow BMP
#b/l thyroid nodules
TSH WNL
outpatient US
#Mild indirect bilirubinemia
resolved
LDH in 300th - follow trend
most likely 2/2 acute disease
follow LFT
DVT ppx Lovenox
Full code
I have spent at least 58min reviewing chart, test results, communication with consultants and providing direct patient care
Anticipated Discharge: 24 - 48 hours
Subjective/Interval History
-
Date of Service: February 13, 2025
Objective Data
-
Labs:
Laboratory Results
02/13/25
05:29
WBC 19.4 H
Hgb 12.9 L
Hct 38.0 L
Plt Count 152 D
Sodium 131 L
Potassium 3.7
Chloride 102
Carbon Dioxide 23
BUN 23 H
Creatinine 1.0
Glucose 123 H
Calcium 9.3
Total Bilirubin 1.3
AST 45
ALT 26
Alkaline Phosphatase 102
Vital Signs:
Vital Signs
Temp Pulse Resp BP Pulse Ox
98.3 F 71 16 153/84 93
02/13/25 07:30 02/13/25 07:30 02/13/25 07:30 02/13/25 07:30 02/13/25 07:30
I&O
02/12/25 02/13/25 02/14/25
06:59 06:59 06:59
Intake Total 2460 / 2460 720 / 720
Balance 2460 / 2460 720 / 720
Review of Systems
-
History Source: Patient
All other systems: Reviewed and negative
Physical Exam
-
General: No Apparent Distress
HEENT: Normocephalic
Respiratory: Clear to Auscultation
GI: Soft, Nontender and Nondistended
Genito-urinary: Costovertebral Angle Tend
Neuro: Awake, Alert, Oriented and AO x 3
Psych: Calm
--- NOTE | 2025-02-13 09:36 | W.PN.ID1 ---
Date of Service
Date of Service: February 13, 2025
Today's Communication
For CT a/p
Continue empiric doxy.
Assessment / Plan
# Fever - persists
# leukocytosis - stable, persistent
# Diffuse rash (some target lesions) - improved
# New Right conjunctivitis, resolved
# Pharyngitis/bronchitis, resolved
-CXR negative
- Blood cx's neg to date
- rapid Group A strep: negative
- Babesia smear negative
- Respiratory viral panel PCR negative
- Doubt tick-borne illness, but Lyme, RMSF, Anaplasma, Ehrlichia work-up labs pending.
- Syphilis pending
- HIV screen pending
-For CT a/p FUO workup
- Hospitalist suspecting Adult Still Disease with ferritin >10,000
Started on around the clock ibuprofen last night, seems to be responding
- ?mycoplasma/chlamydia
Continue empiric doxycycline for now (d3 of 7)
- Trend temps/wbc/plt
Chief Complaint
-: Fever and Other (rash)
Subjective / Review of Systems
pt reports he feels improved after taking Flexeril. He was also started on around the clock ibuprofen last night.
Rash also improving.
Vital Signs / Physical Exam
Vital Signs
Vital Signs
Temp Pulse Resp BP Pulse Ox
98.3 F 71 16 153/84 93
02/13/25 07:30 02/13/25 07:30 02/13/25 07:30 02/13/25 07:30 02/13/25 07:30
Selected Entries
02/12/25
14:45 02/12/25
15:00 02/12/25
20:39
Temp 101.7 F H 102.8 F H 100.5 F H
Physical Exam
Constitutional: No Acute Distress and Comfortable
Eyes: Other (right conjunctivitis resolved)
Cardiovascular: Regular Rate and S1/S2
Pulmonary: Clear
Gastrointestinal: Soft, Non Tender, Non Distended and Normal Bowel Sounds
Genito-Urinary: Negative CVA Tenderness
Extremities: Edema
Skin: Rash (Diffuse morbilliform rash, some target lesions now slight pink color; BLE thigh rash resolved.)
Neurological: AO x 3
Objective Data
Lab Data
Lab Results
02/13/25 05:29
02/13/25 05:29
ESR 42 mm/hour (0-20) H 02/12/25 06:14
Estimated Creat Clear 86 ml/min 02/13/25 05:29
Lactic Acid 2.0 mmol/L (0.7-2.0) 02/11/25 05:32
Total Bilirubin 1.3 mg/dl (0.2-1.3) 02/13/25 05:29
AST 45 U/L (17-59) 02/13/25 05:29
ALT 26 U/L (0-50) 02/13/25 05:29
Alkaline Phosphatase 102 U/L (38-126) 02/13/25 05:29
Most recent labs reviewed.
Micro Results:
02/11/25 15:15 Streptococcus Screen (BETSY) - Final
Throat/Pharynx No Beta Hemolytic Streptococci Isolated
Streptococcus Rapid Screen - Final
Rapid Strep Screen (Group A) Negative
02/12/25 16:17 Blood Parasites Smear - Preliminary
Blood/Venous
02/13/25 05:29 Blood Parasites Smear - Pending
Blood/Venous
02/11/25 01:34 Blood Culture - Preliminary
Blood/Venous No Growth in 48 hours- Final report to follow
02/11/25 00:59 Blood Culture - Preliminary
Blood/Venous No Growth in 48 hours- Final report to follow
02/12/25 18:21 Influenza Type A (PCR) - Final
Nasalpharynx Not Detected
Influenza Type A (H1) (PCR) - Final
Not Detected
Influenza Type A (H3) (PCR) - Final
Not Detected
Influenza Type B (PCR) - Final
Not Detected
Resp Syncytial Virus Type A (PCR) - Final
Not Detected
Resp Syncytial Virus Type B (PCR) - Final
Not Detected
Adenovirus DNA (PCR) - Final
Not Detected
Human Metapneumovirus (PCR) - Final
Not Detected
Parainfluenza Virus Type 1 (PCR) - Final
Not Detected
Parainfluenza Virus Type 2 (PCR) - Final
Not Detected
Parainfluenza Virus Type 3 (PCR) - Final
Not Detected
Parainfluenza Virus Type 4 - Final
Not Detected
Rhinovirus (PCR) - Final
Not Detected
02/10/25 16:40 Blood Culture - Preliminary
Blood/Venous No Growth in 48 hours- Final report to follow
02/10/25 17:46 Urine Culture - Final
Urine NO GROWTH
02/11/25 06:05 Respiratory Culture - Final
Sputum Gram Stain - Final
02/10/25 19:13 Influenza Types A & B (BESS) - Final
Nasal Swab Negative for Influenza A & B, NAAT
Negative results must be combined with clinical observations
and patient history.
Nucleic Acid Amplification test (NAAT)performed on the
[employer] NOW platform.
02/10/25 16:40 Influenza Types A & B (BESS) - Final
Nasal Swab Negative for Influenza A & B, NAAT
Negative results must be combined with clinical observations
and patient history.
Nucleic Acid Amplification test (NAAT)performed on the
[employer] NOW platform.
02/10/25 CXR: No radiographic evidence for pneumonia.
Care Review
Plan reviewed with: Physician (Dr. Delcid)
--- NOTE | 2025-02-13 10:36 | CM ---
CM reviewed chart, patient seen bedside, initial assessment completed. Patient resides with his in a multiple story home, few steps to enter. Patient is independent with ADLs/IADLs, denies use of DME, VN/SNF history. Patient does not have a
PCP, provided with list. Patient confirms pharmacy [facility], confirms prescription coverage. Patient denies insecurities at home. CM will continue to follow for all discharge planning needs.
Plan; home with , no needs anticipated
[2025-02-13 11:47] LABS: Hepatitis B Surface Antigen Negative (Negative)
[2025-02-13 12:05] LABS: Hepatitis C Antibody Negative (Negative)
[2025-02-13 14:24] VITALS: BP 140/89
[2025-02-13] MEDS: TYLENOL 650 MG PO (14:25)
--- NOTE | 2025-02-13 14:29 | W.PN.PUL3 ---
Today's Communication / Plan
-
Crackles on exam and symptoms concerning for mild pulm edema
EKG unremarkable
Further workup per primary service
Consider inflammatory process depending on clinical course
Follow-up CT chest as below
Assessment
-
65-year-old male with 5-day history of fevers, 24 hours of diffuse rash, right conjunctivitis, myalgias. CT chest with nodule. We are asked to comment
7 mm right middle lobe nodule
Mediastinal adenopathy, 2.4 cm subcarinal lymph node
URI symptoms, viral symptoms x 5 days
Crackles on exam, increased shortness of breath
Suspect mild heart failure
Fevers
Leukocytosis
Diffuse macular rash
Mild hyponatremia
Thyroid nodule
Suspected sleep disordered breathing
Plan/recommendations
At this time, patient appears to be comfortable
Crackles on exam noted which are new. Patient describes some mild orthopnea overnight
Diffuse macular rash noted
No obvious painful nodules
Mild right eye conjunctivitis noted
Reviewed CT findings
Workup negative to date, infectious disease following
Motrin started per primary service
Moving forward
Chest x-ray was obtained. Mild pulm edema per my review
IV fluids held
EKG obtained. Normal sinus rhythm, nonspecific abnormalities
Given crackles, suspect this is primarily fluid
Patient may require further workup for suspected heart failure
This will be deferred to primary service
Consider echocardiogram
Consider inflammatory process such as autoimmune disease, sarcoid given adenopathy
For now would recommend follow-up CT chest in 3 months with pulmonary follow-up
Depending on clinical course, may be worth obtaining skin biopsy as this may be diagnostic
Although skin rash appears to be improving
Reviewed with patient at length
Will follow
Subjective Data
-
Date of Service:
Date of Service: February 13, 2025
Subjective:
Patient examined earlier this morning. Notes increased shortness of breath overnight, mild chest congestion. Denies GERD, chest pain. Has mild cough. Observed ambulating in the room in the bathroom without difficulty
Objective Data
Data Reviewed
Vital Signs / I&O / Oxygen:
Vital Signs
Temp Pulse Resp BP Pulse Ox
98.4 F 104 20 140/89 88
02/13/25 14:24 02/13/25 14:24 02/13/25 14:24 02/13/25 14:24 02/13/25 14:24
Intake and Output
02/12/25 02/13/25 02/14/25
06:59 06:59 06:59
Intake Total 2460 / 2460 720 / 720
Balance 2460 / 2460 720 / 720
SaO2 88
Physical Exam
General: Comfortable
HEENT: Normocephalic and Anicteric
Cardiovascular: S1-S2, Regular Rhythm, Murmur (n) and Rub (n)
Respiratory: Wheeze (n), Crackles (Bibasilar), Rhonchi (n) and Non-Labored Respirations
GI: Soft, Non Distended (Mildly obese) and Non Tender
Neurology: Awake, Alert and No Motor Deficits
Skin: Rash (Macular involving the back, slightly improved)
Labs/Micro/Reports
Lab Data
02/13/25 05:29
02/13/25 05:29
Microbiology
02/12/25 16:17 Blood/Venous Blood Parasites Smear - Final
02/13/25 05:29 Blood/Venous Blood Parasites Smear - Preliminary
02/11/25 15:15 Throat/Pharynx Streptococcus Screen (BETSY) - Final
No Beta Hemolytic Streptococci Isolated
02/11/25 15:15 Throat/Pharynx Streptococcus Rapid Screen - Final
Rapid Strep Screen (Group A) Negative
02/11/25 01:34 Blood/Venous Blood Culture - Preliminary
No Growth in 48 hours- Final report to follow
02/11/25 00:59 Blood/Venous Blood Culture - Preliminary
No Growth in 48 hours- Final report to follow
02/12/25 18:21 Nasalpharynx Influenza Type A (PCR) - Final
Not Detected
02/12/25 18:21 Nasalpharynx Influenza Type A (H1) (PCR) - Final
Not Detected
02/12/25 18:21 Nasalpharynx Influenza Type A (H3) (PCR) - Final
Not Detected
02/12/25 18:21 Nasalpharynx Influenza Type B (PCR) - Final
Not Detected
02/12/25 18:21 Nasalpharynx Resp Syncytial Virus Type A (PCR) - Final
Not Detected
02/12/25 18:21 Nasalpharynx Resp Syncytial Virus Type B (PCR) - Final
Not Detected
02/12/25 18:21 Nasalpharynx Adenovirus DNA (PCR) - Final
Not Detected
02/12/25 18:21 Nasalpharynx Human Metapneumovirus (PCR) - Final
Not Detected
02/12/25 18:21 Nasalpharynx Parainfluenza Virus Type 1 (PCR) - Final
Not Detected
02/12/25 18:21 Nasalpharynx Parainfluenza Virus Type 2 (PCR) - Final
Not Detected
02/12/25 18:21 Nasalpharynx Parainfluenza Virus Type 3 (PCR) - Final
Not Detected
02/12/25 18:21 Nasalpharynx Parainfluenza Virus Type 4 - Final
Not Detected
02/12/25 18:21 Nasalpharynx Rhinovirus (PCR) - Final
Not Detected
02/10/25 16:40 Blood/Venous Blood Culture - Preliminary
No Growth in 48 hours- Final report to follow
02/10/25 17:46 Urine Urine Culture - Final
NO GROWTH
02/11/25 06:05 Sputum Respiratory Culture - Final
02/11/25 06:05 Sputum Gram Stain - Final
02/10/25 19:13 Nasal Swab Influenza Types A & B (BESS) - Final
Negative for Influenza A & B, NAAT
Negative results must be combined with clinical observations
and patient history.
Nucleic Acid Amplification test (NAAT)performed on the
[employer] NOW platform.
02/10/25 16:40 Nasal Swab Influenza Types A & B (BESS) - Final
Negative for Influenza A & B, NAAT
Negative results must be combined with clinical observations
and patient history.
Nucleic Acid Amplification test (NAAT)performed on the
[employer] NOW platform.
[2025-02-13] MEDS: SYMBICORT 160/4.5 MCG INHALER 2 PUFF INH (15:03)
--- NOTE | 2025-02-13 15:03 | W.PN.UPDATE ---
Update Note
Progress Note Update
Hypoxia with crackles, concern for volume overload - Lasix, Echo, O2
[2025-02-13] MEDS: VENTOLIN NEBULES 2.5 MG INH (15:07)
[2025-02-13] MEDS: LASIX 40 MG IV (15:16)
[2025-02-13 15:30] VITALS: BP 147/78
[2025-02-13] MEDS: LOVENOX 40 MG SC (17:27)
[2025-02-13] MEDS: OLOPATADINE 0.1% OPHTHALMIC SOLUTION 1 DROP RIGHT EYE (20:51)
[2025-02-13] MEDS: FLEXERIL 5 MG PO (20:56)
[2025-02-13 23:15] VITALS: BP 112/73
[2025-02-14 06:00] VITALS: BMI 32.9
[2025-02-14] MEDS: PROTONIX 40 MG PO (06:35)
[2025-02-14 07:00] VITALS: BP 123/67
[2025-02-14 07:40] LABS: Hematocrit 35.2 % (39.0-52.0); Hemoglobin 12.1 g/dL (13.0-18.0); Mean Corp Hgb Conc. 34.4 g/dL (33.0-37.0); Mean Corpuscular Volume 88.7 fL (80.0-94.0); Platelet Count 178 10^3/uL (130-400); Red Cell Dist. Width 13.7 % (11.5-14.5)
[2025-02-14 08:13] LABS: ALT (SGPT) 34 U/L (0-50); AST (SGOT) 53 U/L (17-59); Albumin 2.7 g/dl (3.5-5.0); Alkaline Phosphatase 150 U/L (38-126); Blood Urea Nitrogen 27 mg/dl (9-20); Calcium 9.2 mg/dl (8.4-10.2); Carbon Dioxide 25 mmol/L (22-30); Chloride 103 mmol/L (98-107); Estimated Creatinine Clearance 66 ml/min; Glucose 108 mg/dl (70-99); LDH 415 U/L (120-246); Potassium 3.6 mmol/L (3.5-5.1); Sodium 134 mmol/L (135-145); Total Protein 5.2 g/dl (6.3-8.2); eGFR > 60.00
[2025-02-14 08:30] LABS: Nucleated Red Blood Cells % 0.1 % (-)
[2025-02-14] MEDS: VIBRAMYCIN 100 MG PO ×2 (08:37→19:51)
[2025-02-14] MEDS: OLOPATADINE 0.1% OPHTHALMIC SOLUTION 1 DROP RIGHT EYE ×2 (08:37→19:51)
[2025-02-14] MEDS: MOTRIN 600 MG PO ×3 (08:37→22:01)
--- NOTE | 2025-02-14 09:32 | W.PN.PUL3 ---
Today's Communication / Plan
-
Improving today on lasix, clear on exam, ECHO reviewed
Home O2 eval
Nodules to be followed as OP, repeat CT chest
Sleep study
Abx per ID
Assessment
-
65-year-old male with 5-day history of fevers, 24 hours of diffuse rash, right conjunctivitis, myalgias. CT chest with nodule. We are asked to comment
7 mm right middle lobe nodule
Mediastinal adenopathy, 2.4 cm subcarinal lymph node
URI symptoms, viral symptoms x 5 days
Crackles on exam, increased shortness of breath
Suspect mild heart failure
Fevers
Leukocytosis
Diffuse macular rash
Mild hyponatremia
Thyroid nodule
Suspected sleep disordered breathing
Plan/recommendations
At this time, patient appears to be comfortable, remains on o2
Home O2 eval placed
Crackles on exam noted which are new--resolved today
Reviewed CT findings--nodules/would recommend FU OP Imaging
Workup negative to date, infectious disease following
Motrin started per primary service
Moving forward
Chest x-ray was obtained. Mild pulm edema per my review
IV fluids held
EKG obtained. Normal sinus rhythm, nonspecific abnormalities
Lasix, crackles resolved
ECHO with stable findings, mild PH noted (with snoring)- would recommend outpatient sleep study
Consider inflammatory process such as autoimmune disease, sarcoid given adenopathy
For now would recommend follow-up CT chest in 3 months with pulmonary follow-up
Reviewed with patient at length
Outpatient FU recommended
Diagnostic Data
Chest X-Ray: 02/13/25- No acute disease of the chest. Mild cardiomegaly. Stable.
02/10/25- 1. No radiographic evidence for pneumonia.
2. Mild cardiomegaly.
3. Moderate osteoarthritis of the left glenohumeral joint.
CT Scan: CHEST 02/11/25- No CT evidence for an acute pulmonary process. 7 mm and 6 mm solid pulmonary nodules in the right middle lobe along the minor fissure. The [facility] Pulmonary Nodule Advisory Board will be notified. Mild mediastinal
lymphadenopathy, which is nonspecific but clinical correlation is recommended. Bilateral thyroid gland nodules. Recommend a follow-up thyroid ultrasound on a routine outpatient basis for further evaluation.
Echo: 02/14/25- Normal left ventricular chamber size. Normal left ventricular systolic function. Left ventricular ejection fraction is 60% by Tovar's method of discs. Normal regional wall motion. Mild concentric left ventricular hypertrophy.
Normal diastolic function. Mitral valve opens normally. Mildly thickened mitral valve leaflets. Mild to moderate mitral regurgitation. Indexed LA volume is within normal range (15-34 mL/m2). Tricuspid valve opens normally. Mild to moderate
tricuspid regurgitation. Estimated pulmonary artery pressure of 47 mmHg, assuming a right atrial pressure of 13 mmHg.
There is no evidence of vegetation seen. However if clinical suspicion is high would suggest RD.
PFT's:
Reports and relevant images were personally reviewed.
Total time spent on this consultation/encounter __48__ minutes which includes review of history, physical exam, medications, laboratory data, personal review of imaging, extensive review of outpatient records, discussion with care team and
respiratory therapy.
Subjective Data
-
Date of Service:
Date of Service: February 14, 2025
Chief Complaint: Pulmonary Follow Up
Subjective:
No new complaints feeling better since yesterday
On lasix
Objective Data
Data Reviewed
Vital Signs / I&O / Oxygen:
Vital Signs
Temp Pulse Resp BP Pulse Ox
97.9 F 94 18 123/67 93
02/14/25 07:00 02/14/25 07:00 02/14/25 07:00 02/14/25 07:00 02/14/25 08:00
Intake and Output
02/13/25 02/14/25 02/15/25
06:59 06:59 06:59
Intake Total 720 / 720 960 / 960
Balance 720 / 720 960 / 960
SaO2 93
Nasal Cannula flow liters per 2
minute
Physical Exam
General: Comfortable and Good Appetite
HEENT: Normocephalic and Anicteric
Cardiovascular: S1-S2, Regular Rhythm, Murmur (n) and Rub (n)
Respiratory: Clear, Wheeze (n), Rhonchi (n) and Non-Labored Respirations
GI: Soft, Non Distended (Mildly obese) and Non Tender
Neurology: Awake, Alert, Oriented and No Motor Deficits
Skin: Warm, Dry, Good Color and Rash (Macular involving the back, slightly improved)
Labs/Micro/Reports
Lab Data
02/14/25 07:09
02/14/25 07:09
Microbiology
02/11/25 01:34 Blood/Venous Blood Culture - Preliminary
No Growth in 72 hours- Final report to follow
02/11/25 00:59 Blood/Venous Blood Culture - Preliminary
No Growth in 72 hours- Final report to follow
02/10/25 16:40 Blood/Venous Blood Culture - Preliminary
No Growth in 72 hours- Final report to follow
02/13/25 05:29 Blood/Venous Blood Parasites Smear - Final
02/12/25 16:17 Blood/Venous Blood Parasites Smear - Final
02/11/25 15:15 Throat/Pharynx Streptococcus Screen (BETSY) - Final
No Beta Hemolytic Streptococci Isolated
02/11/25 15:15 Throat/Pharynx Streptococcus Rapid Screen - Final
Rapid Strep Screen (Group A) Negative
02/12/25 18:21 Nasalpharynx Influenza Type A (PCR) - Final
Not Detected
02/12/25 18:21 Nasalpharynx Influenza Type A (H1) (PCR) - Final
Not Detected
02/12/25 18:21 Nasalpharynx Influenza Type A (H3) (PCR) - Final
Not Detected
02/12/25 18:21 Nasalpharynx Influenza Type B (PCR) - Final
Not Detected
02/12/25 18:21 Nasalpharynx Resp Syncytial Virus Type A (PCR) - Final
Not Detected
02/12/25 18:21 Nasalpharynx Resp Syncytial Virus Type B (PCR) - Final
Not Detected
02/12/25 18:21 Nasalpharynx Adenovirus DNA (PCR) - Final
Not Detected
02/12/25 18:21 Nasalpharynx Human Metapneumovirus (PCR) - Final
Not Detected
02/12/25 18:21 Nasalpharynx Parainfluenza Virus Type 1 (PCR) - Final
Not Detected
02/12/25 18:21 Nasalpharynx Parainfluenza Virus Type 2 (PCR) - Final
Not Detected
02/12/25 18:21 Nasalpharynx Parainfluenza Virus Type 3 (PCR) - Final
Not Detected
02/12/25 18:21 Nasalpharynx Parainfluenza Virus Type 4 - Final
Not Detected
02/12/25 18:21 Nasalpharynx Rhinovirus (PCR) - Final
Not Detected
02/10/25 17:46 Urine Urine Culture - Final
NO GROWTH
02/11/25 06:05 Sputum Respiratory Culture - Final
02/11/25 06:05 Sputum Gram Stain - Final
[2025-02-14 10:14] LABS: Ferritin > 10000.0 ng/ml (17.9-464.0)
--- NOTE | 2025-02-14 12:33 | CM ---
Cm reviewed medical records. Plan for discharge to home with no needs noted.
PLAN: Home no needs.
[2025-02-14 13:31] LABS: Lyme Antibody Screen, EIA Negative (Negative)
[2025-02-14 14:09] LABS: C-Reactive Protein > 270.00 mg/L (0.0-10.00)
--- NOTE | 2025-02-14 14:26 | W.PN.ID1 ---
Date of Service
Date of Service: February 14, 2025
Today's Communication
Continue empiric doxy for now.
Assessment / Plan
# Fever - resolved on ibuprofen
# leukocytosis - mildly improved today
# Diffuse rash (some target lesions) - continues to improve
# Thrombocytopenia resolved
# Right conjunctivitis, resolved
# Pharyngitis/bronchitis, resolved
-CT chest mild mediastinal LAD
- CT a/p negative
-CXR negative
- Blood cx's neg to date
- Rapid Group A strep: negative
- Respiratory viral panel PCR negative
- Babesia smear negative
- Anaplasma, Ehrlichia PCR negative
- Lyme screen negative
- RMSF serology pending
- Syphilis pending
- HIV screen pending
- Hospitalist suspecting Adult Still Disease with ferritin >10,000
Started on around the clock ibuprofen last night, seems to be responding
- ?mycoplasma/chlamydia
Continue empiric doxycycline for now (d4 of 7)
- Trend wbc
Chief Complaint
-: Other (rash)
Subjective / Review of Systems
SOB improved. Now with BLE edema.
Continues to feel better.
Vital Signs / Physical Exam
Vital Signs
Vital Signs
Temp Pulse Resp BP Pulse Ox
97.9 F 94 18 123/67 93
02/14/25 07:00 02/14/25 07:00 02/14/25 07:00 02/14/25 07:00 02/14/25 08:00
Physical Exam
Constitutional: No Acute Distress and Comfortable
Cardiovascular: Regular Rate and S1/S2
Pulmonary: Clear
Gastrointestinal: Soft, Non Tender and Non Distended
Extremities: Edema (1+)
Skin: Other (Improving diffuse morbilliform rash, some target lesions )
Neurological: AO x 3
Objective Data
Lab Data
Lab Results
02/14/25 07:09
02/14/25 07:09
ESR 42 mm/hour (0-20) H 02/12/25 06:14
Estimated Creat Clear 66 ml/min 02/14/25 07:09
Lactic Acid 2.0 mmol/L (0.7-2.0) 02/11/25 05:32
Total Bilirubin 1.3 mg/dl (0.2-1.3) 02/14/25 07:09
AST 53 U/L (17-59) 02/14/25 07:09
ALT 34 U/L (0-50) 02/14/25 07:09
Alkaline Phosphatase 150 U/L (38-126) H 02/14/25 07:09
C-Reactive Protein Cancelled 02/14/25 13:11
Most recent labs reviewed.
Micro Results:
02/11/25 01:34 Blood Culture - Preliminary
Blood/Venous No Growth in 72 hours- Final report to follow
02/11/25 00:59 Blood Culture - Preliminary
Blood/Venous No Growth in 72 hours- Final report to follow
02/10/25 16:40 Blood Culture - Preliminary
Blood/Venous No Growth in 72 hours- Final report to follow
02/13/25 05:29 Blood Parasites Smear - Final
Blood/Venous
02/12/25 16:17 Blood Parasites Smear - Final
Blood/Venous
02/11/25 15:15 Streptococcus Screen (BETSY) - Final
Throat/Pharynx No Beta Hemolytic Streptococci Isolated
Streptococcus Rapid Screen - Final
Rapid Strep Screen (Group A) Negative
02/12/25 18:21 Influenza Type A (PCR) - Final
Nasalpharynx Not Detected
Influenza Type A (H1) (PCR) - Final
Not Detected
Influenza Type A (H3) (PCR) - Final
Not Detected
Influenza Type B (PCR) - Final
Not Detected
Resp Syncytial Virus Type A (PCR) - Final
Not Detected
Resp Syncytial Virus Type B (PCR) - Final
Not Detected
Adenovirus DNA (PCR) - Final
Not Detected
Human Metapneumovirus (PCR) - Final
Not Detected
Parainfluenza Virus Type 1 (PCR) - Final
Not Detected
Parainfluenza Virus Type 2 (PCR) - Final
Not Detected
Parainfluenza Virus Type 3 (PCR) - Final
Not Detected
Parainfluenza Virus Type 4 - Final
Not Detected
Rhinovirus (PCR) - Final
Not Detected
02/10/25 17:46 Urine Culture - Final
Urine NO GROWTH
02/11/25 06:05 Respiratory Culture - Final
Sputum Gram Stain - Final
02/10/25 19:13 Influenza Types A & B (BESS) - Final
Nasal Swab Negative for Influenza A & B, NAAT
Negative results must be combined with clinical observations
and patient history.
Nucleic Acid Amplification test (NAAT)performed on the
[employer] ID NOW platform.
02/10/25 16:40 Influenza Types A & B (BESS) - Final
Nasal Swab Negative for Influenza A & B, NAAT
Negative results must be combined with clinical observations
and patient history.
Nucleic Acid Amplification test (NAAT)performed on the
[employer] ID NOW platform.
02/10/25 CXR: No radiographic evidence for pneumonia.
[2025-02-14 15:00] VITALS: BP 160/92
[2025-02-14 16:17] LABS: Platelet Antibody, Direct IgG Negative (Negative); Platelet Antibody, Direct IgM Negative (Negative)
[2025-02-14] MEDS: LOVENOX 40 MG SC (17:04)
--- NOTE | 2025-02-14 18:18 | W.PN.HOSP.TC ---
Addendum entered and electronically signed by Francis Maravilla MD 02/15/25 09:29:
Febrile illness unclear if rheumatologic infectious
Continue doxycycline per infectious disease
Serologies for [place] spotted pending, syphilis HIV pending
Potentially could be adult still disease as ferritin greater than 10,000 and symptomatology improving with ibuprofen however difficulty Tylenol as also on doxycycline
Per ID cannot exclude mycoplasma chlamydia however continue empiric doxycycline day 4 of 7 for now
Acute hypoxemic respiratory failure requiring supplemental oxygen
- Improving with some IV Lasix
Will need home O2
Pulmonary following
Will need outpatient PFTs and sleep medicine follow-up
7 mm right middle lobe nodule
Will need outpatient repeat CT
Thyroid nodule
Outpatient thyroid ultrasound
Mild hyperbilirubinemia resolved
Mild hyponatremia improving likely related to insensible losses with sweating from fevers.
Encourage p.o. intake
Addendum entered and electronically signed by Francis Maravilla MD 02/15/25 09:29:
02/11/25 01:34 Blood Culture - Preliminary
Blood/Venous No Growth in 4 days- Final report to follow
02/11/25 00:59 Blood Culture - Preliminary
Blood/Venous No Growth in 4 days- Final report to follow
02/10/25 16:40 Blood Culture - Preliminary
Blood/Venous No Growth in 4 days- Final report to follow
02/13/25 05:29 Blood Parasites Smear - Final
Blood/Venous
02/12/25 16:17 Blood Parasites Smear - Final
Blood/Venous
02/11/25 15:15 Streptococcus Screen (BETSY) - Final
Throat/Pharynx No Beta Hemolytic Streptococci Isolated
Streptococcus Rapid Screen - Final
Rapid Strep Screen (Group A) Negative
02/12/25 18:21 Influenza Type A (PCR) - Final
Nasalpharynx Not Detected
Influenza Type A (H1) (PCR) - Final
Not Detected
Influenza Type A (H3) (PCR) - Final
Not Detected
Influenza Type B (PCR) - Final
Not Detected
Resp Syncytial Virus Type A (PCR) - Final
Not Detected
Resp Syncytial Virus Type B (PCR) - Final
Not Detected
Adenovirus DNA (PCR) - Final
Not Detected
Human Metapneumovirus (PCR) - Final
Not Detected
Parainfluenza Virus Type 1 (PCR) - Final
Not Detected
Parainfluenza Virus Type 2 (PCR) - Final
Not Detected
Parainfluenza Virus Type 3 (PCR) - Final
Not Detected
Parainfluenza Virus Type 4 - Final
Not Detected
Rhinovirus (PCR) - Final
Not Detected
02/10/25 17:46 Urine Culture - Final
Urine NO GROWTH
02/11/25 06:05 Respiratory Culture - Final
Sputum Gram Stain - Final
02/10/25 19:13 Influenza Types A & B (BESS) - Final
Nasal Swab Negative for Influenza A & B, NAAT
Negative results must be combined with clinical observations
and patient history.
Nucleic Acid Amplification test (NAAT)performed on the
[employer] ID NOW platform.
02/10/25 16:40 Influenza Types A & B (BESS) - Final
Nasal Swab Negative for Influenza A & B, NAAT
Negative results must be combined with clinical observations
and patient history.
Nucleic Acid Amplification test (NAAT)performed on the
[employer] ID NOW platform.
Original Note:
Today's Communication/Plan
-
Continue empiric doxycycline, will monitor clinical status.
Continue to follow extensive infectious workup.
Consider steroids if no clinical improvement, and infectious workup remains negative.
Assessment / Plan
Assessment / Plan
Patient is a 65-year-old male with no significant past medical history who presented to the ED after 5 days of generalized malaise, fevers, arthralgias, myalgias, and macular rash on arms and trunk. Patient subsequently had signs of right-sided
conjunctivitis. Extensive infectious workup pending.
#Fever, macular non-pruritic rash, arthralgias
Per ID, continue empiric doxycycline (day 4)
Infectious workup negative to date, including the following:
- Blood cultures, urine culture, group A strep, respiratory viral panel, Babesia, Anaplasma, Lyme, mono, hepatitis
CT chest (02/11): 2 solid pulmonary nodule (7 mm and 6 mm) in RML along minor fissure
CT abdomen/pelvis (02/13): No acute pathology of abdomen or pelvis. Small B/L pleural effusions.
Consider Adult Onset Still's Disease (ASD) given fever, arthralgias, rash, and ferritin >10,000
- Started ibuprofen
Per pulm, consider sarcoid given adenopathy
- LILIANA, ANTONI pending
CRP: >270
Consider steroids if infectious workup negative and no clinical improvement
Trend temperature curve, WBCs
#Anemia
Hgb 12.1 today, slight downtrend from prior days
Monitor H&H and clinical status
#Hypoxemia
Patient was hypoxic yesterday, prompting diuretics and echocardiogram
Echo (02/14): LVEF 60%. No evidence of vegetation.
#Transient thrombocytopenia�resolved
Monitor CBC
Direct antiplatelet Ab: Negative
#Mild hyponatremia
Na 134 today, improved from 131 yesterday
Monitor BMP
#Thyroid nodules bilaterally
TSH 1.9 (02/13)
Follow-up outpatient with thyroid ultrasound
#Lung nodules
CT chest (02/11): 2 solid pulmonary nodule (7 mm and 6 mm) in RML along minor fissure
Per pulm, follow-up outpatient with repeat CT chest
# Mild hyperbilirubinemia�resolved
Etiology undetermined�likely 2/2 acute disease
Trend LFTs�today: T. bili 1.3, alk phos 150, LDH 415, AST 53, ALT 34
DVT ppx: Lovenox
CODE STATUS: full code
Anticipated Discharge: Today
Subjective/Interval History
-
Date of Service: February 14, 2025
Patient is seen at the bedside on hospital day #5. Nursing reports NAEO. Patient reports he feels same as yesterday, stating 'I feel good.' Reports joint pains are improving from recent days.
Objective Data
-
Labs:
Laboratory Results
02/14/25
07:09
WBC 18.1 H
Hgb 12.1 L
Hct 35.2 L
Plt Count 178
Sodium 134 L
Potassium 3.6
Chloride 103
Carbon Dioxide 25
BUN 27 H
Creatinine 1.3
Glucose 108 H
Calcium 9.2
Total Bilirubin 1.3
AST 53
ALT 34
Alkaline Phosphatase 150 H
Vital Signs:
Vital Signs
Temp Pulse Resp BP Pulse Ox
98.6 F 100 18 160/92 94
02/14/25 15:00 02/14/25 15:00 02/14/25 15:00 02/14/25 15:00 02/14/25 17:45
I&O
02/13/25 02/14/25 02/15/25
06:59 06:59 06:59
Intake Total 720 / 720 960 / 960
Balance 720 / 720 960 / 960
Review of Systems
-
Constitutional: Reports Fatigue and Other (Patient reports he is 'clammy'); Denies Fever or Chills
EENT: Reports No Symptoms Reported
Respiratory: Denies Cough, Trouble Breathing or Wheezing
Cardiac: Denies Chest Pain, Palpitations or Syncope
Abdomen/GI: Denies Abdominal Pain, Nausea, Vomiting or Diarrhea
Genitourinary: Denies Dysuria or Difficulty Voiding
Musculoskeletal: Reports Joint Pain (Improved over recent days); Denies Edema
Skin: Reports Rash; Denies Itching
Neuro: Denies Headache, Weakness or Numbness
Physical Exam
-
General: No Apparent Distress and Comfortable
HEENT: Normocephalic and Atraumatic
Respiratory: Non Labored Respirations; Negative Wheezes or Crackles
Cardiac: Regular Rhythm and S1/S2; Negative Murmur, Rub or Gallop
GI: Soft, Nontender and Normal Bowel Sounds
Musculoskeletal: Negative No Edema or Cyanosis
Skin: Warm, Dry and Rash ([place] macular rash on trunk and extremities)
Neuro: AO x 3
Psych: Calm
[2025-02-14] MEDS: FLEXERIL 5 MG PO (22:01)
[2025-02-14 23:40] VITALS: BP 105/68
[2025-02-15] MEDS: PROTONIX 40 MG PO (06:29)
[2025-02-15 07:21] VITALS: BP 120/72
[2025-02-15 07:26] LABS: Hematocrit 38.3 % (39.0-52.0); Hemoglobin 13.0 g/dL (13.0-18.0); Mean Corp Hgb Conc. 33.9 g/dL (33.0-37.0); Mean Corpuscular Volume 88.0 fL (80.0-94.0); Platelet Count 234 10^3/uL (130-400); Red Cell Dist. Width 14.0 % (11.5-14.5)
[2025-02-15 07:56] LABS: Blood Urea Nitrogen 35 mg/dl (9-20); Calcium 9.0 mg/dl (8.4-10.2); Carbon Dioxide 22 mmol/L (22-30); Chloride 103 mmol/L (98-107); Estimated Creatinine Clearance 61 ml/min; Glucose 102 mg/dl (70-99); Potassium 3.9 mmol/L (3.5-5.1); Sodium 134 mmol/L (135-145); eGFR 56.48
[2025-02-15] MEDS: OLOPATADINE 0.1% OPHTHALMIC SOLUTION 1 DROP RIGHT EYE (08:32)
[2025-02-15] MEDS: MOTRIN 600 MG PO ×2 (08:32→15:48)
[2025-02-15] MEDS: VIBRAMYCIN 100 MG PO (08:32)
[2025-02-15 09:16] LABS: ALT (SGPT) 36 U/L (0-50); AST (SGOT) 68 U/L (17-59); Albumin 2.8 g/dl (3.5-5.0); Alkaline Phosphatase 227 U/L (38-126); Total Protein 5.5 g/dl (6.3-8.2)
--- NOTE | 2025-02-15 09:41 | W.PN.PUL3 ---
Today's Communication / Plan
-
Doing well, no need for O2 per home eval
OP FU recommended
TTE completed 02/14 showing no acute findings
Discharge planning per team
We will sign off at this time, please call with questions
Assessment
-
65-year-old male with 5-day history of fevers, 24 hours of diffuse rash, right conjunctivitis, myalgias. CT chest with nodule. We are asked to comment
7 mm right middle lobe nodule
Mediastinal adenopathy, 2.4 cm subcarinal lymph node
URI symptoms, viral symptoms x 5 days
Crackles on exam, increased shortness of breath
Suspect mild heart failure
Fevers
Leukocytosis
Diffuse macular rash
Mild hyponatremia
Thyroid nodule
Suspected sleep disordered breathing
Plan/recommendations
At this time, patient appears to be comfortable, remains on o2
Home O2 eval placed--91% on RA
Crackles on exam noted which are new--resolved today
Reviewed CT findings--nodules/would recommend FU OP Imaging
Workup negative to date, infectious disease following
Motrin started per primary service
Moving forward
Chest x-ray was obtained. Mild pulm edema per my review
IV fluids held
EKG obtained. Normal sinus rhythm, nonspecific abnormalities
Lasix, crackles resolved
ECHO with stable findings, mild PH noted (with snoring)- would recommend outpatient sleep study
Consider inflammatory process such as autoimmune disease, sarcoid given adenopathy
For now would recommend follow-up CT chest in 3 months with pulmonary follow-up
Reviewed with patient at length
Outpatient FU recommended
Diagnostic Data
Chest X-Ray: 02/13/25- No acute disease of the chest. Mild cardiomegaly. Stable.
02/10/25- 1. No radiographic evidence for pneumonia.
2. Mild cardiomegaly.
3. Moderate osteoarthritis of the left glenohumeral joint.
CT Scan: CHEST 02/11/25- No CT evidence for an acute pulmonary process. 7 mm and 6 mm solid pulmonary nodules in the right middle lobe along the minor fissure. The [facility] Pulmonary Nodule Advisory Board will be notified. Mild mediastinal
lymphadenopathy, which is nonspecific but clinical correlation is recommended. Bilateral thyroid gland nodules. Recommend a follow-up thyroid ultrasound on a routine outpatient basis for further evaluation.
Echo: 02/14/25- Normal left ventricular chamber size. Normal left ventricular systolic function. Left ventricular ejection fraction is 60% by Tovar's method of discs. Normal regional wall motion. Mild concentric left ventricular hypertrophy.
Normal diastolic function. Mitral valve opens normally. Mildly thickened mitral valve leaflets. Mild to moderate mitral regurgitation. Indexed LA volume is within normal range (15-34 mL/m2). Tricuspid valve opens normally. Mild to moderate
tricuspid regurgitation. Estimated pulmonary artery pressure of 47 mmHg, assuming a right atrial pressure of 13 mmHg.
There is no evidence of vegetation seen. However if clinical suspicion is high would suggest RD.
PFT's:
Reports and relevant images were personally reviewed.
Total time spent on this consultation/encounter __48__ minutes which includes review of history, physical exam, medications, laboratory data, personal review of imaging, extensive review of outpatient records, discussion with care team and
respiratory therapy.
Subjective Data
-
Date of Service:
Date of Service: February 15, 2025
Chief Complaint: Pulmonary Follow Up
Subjective:
No new complaints, now off oxygen
SOB is stable, ready to go home
Objective Data
Data Reviewed
Vital Signs / I&O / Oxygen:
Vital Signs
Temp Pulse Resp BP Pulse Ox
97.8 F 97 18 120/72 91
02/15/25 07:21 02/15/25 07:21 02/15/25 07:21 02/15/25 07:21 02/15/25 07:21
Intake and Output
02/14/25 02/15/25 02/16/25
06:59 06:59 06:59
Intake Total 960 / 960 900 / 900
Balance 960 / 960 900 / 900
SaO2 91
Nasal Cannula flow liters per 2
minute
Physical Exam
General: Comfortable and Good Appetite
HEENT: Normocephalic and Anicteric
Cardiovascular: S1-S2, Regular Rhythm, Murmur (n) and Rub (n)
Respiratory: Clear, Wheeze (n), Rhonchi (n) and Non-Labored Respirations
GI: Soft, Non Distended (Mildly obese) and Non Tender
Neurology: Awake, Alert, Oriented and No Motor Deficits
Skin: Warm, Dry, Good Color and Rash (Macular involving the back, slightly improved)
Labs/Micro/Reports
Lab Data
02/15/25 06:30
02/15/25 06:30
Microbiology
02/11/25 01:34 Blood/Venous Blood Culture - Preliminary
No Growth in 4 days- Final report to follow
02/11/25 00:59 Blood/Venous Blood Culture - Preliminary
No Growth in 4 days- Final report to follow
02/10/25 16:40 Blood/Venous Blood Culture - Preliminary
No Growth in 4 days- Final report to follow
02/13/25 05:29 Blood/Venous Blood Parasites Smear - Final
02/12/25 16:17 Blood/Venous Blood Parasites Smear - Final
02/11/25 15:15 Throat/Pharynx Streptococcus Screen (BETSY) - Final
No Beta Hemolytic Streptococci Isolated
02/11/25 15:15 Throat/Pharynx Streptococcus Rapid Screen - Final
Rapid Strep Screen (Group A) Negative
02/12/25 18:21 Nasalpharynx Influenza Type A (PCR) - Final
Not Detected
02/12/25 18:21 Nasalpharynx Influenza Type A (H1) (PCR) - Final
Not Detected
02/12/25 18:21 Nasalpharynx Influenza Type A (H3) (PCR) - Final
Not Detected
02/12/25 18:21 Nasalpharynx Influenza Type B (PCR) - Final
Not Detected
02/12/25 18:21 Nasalpharynx Resp Syncytial Virus Type A (PCR) - Final
Not Detected
02/12/25 18:21 Nasalpharynx Resp Syncytial Virus Type B (PCR) - Final
Not Detected
02/12/25 18:21 Nasalpharynx Adenovirus DNA (PCR) - Final
Not Detected
02/12/25 18:21 Nasalpharynx Human Metapneumovirus (PCR) - Final
Not Detected
02/12/25 18:21 Nasalpharynx Parainfluenza Virus Type 1 (PCR) - Final
Not Detected
02/12/25 18:21 Nasalpharynx Parainfluenza Virus Type 2 (PCR) - Final
Not Detected
02/12/25 18:21 Nasalpharynx Parainfluenza Virus Type 3 (PCR) - Final
Not Detected
02/12/25 18:21 Nasalpharynx Parainfluenza Virus Type 4 - Final
Not Detected
02/12/25 18:21 Nasalpharynx Rhinovirus (PCR) - Final
Not Detected
02/10/25 17:46 Urine Urine Culture - Final
NO GROWTH
[2025-02-15 09:52] LABS: Nucleated Red Blood Cells % 0.5 % (-)
--- NOTE | 2025-02-15 10:20 | W.PN.ID1 ---
Date of Service
Date of Service: February 15, 2025
Today's Communication
See below.
Assessment / Plan
# FUO - resolved on ibuprofen
# leukocytosis - continues to trend up
# Diffuse rash (some target lesions) - resolving
# Thrombocytopenia resolved
# Right conjunctivitis, resolved
# Pharyngitis/bronchitis, resolved
# Elevated inflammatory markers ESR/CRP/ferritin
# Enlarged bilateral thyroid gland nodules
-CT chest mild mediastinal LAD
- CT a/p negative
-CXR negative
- Blood cx's neg to date
- Rapid Group A strep: negative
- Respiratory viral panel PCR negative
- Babesia smear negative
- Anaplasma, Ehrlichia PCR negative
- Lyme screen negative
- Parvovirus serology pending
- RMSF serology pending
- Syphilis pending
- HIV screen pending
- Hospitalist suspecting Adult Still Disease with ferritin >10,000
Started on around the clock ibuprofen seems to be responding
Follow-up with Rheumatology
- Ordered TTE. If negative, OK dc home and follow-up with PCP.
-Continue empiric doxycycline for now (d5 of 10)through 02/20/25
- Should repeat CBC/diff, CMP in 1 to 2 weeks to trend wbc, LFT's
- I will call him when pending labs resulted.
Chief Complaint
-: Other (rash)
Subjective / Review of Systems
c/o BLE edema. SOB resolved. Myalgias improving.
Wants to go home. Unable to sleep in hospital.
Vital Signs / Physical Exam
Vital Signs
Vital Signs
Temp Pulse Resp BP Pulse Ox
97.8 F 97 18 120/72 91
02/15/25 07:21 02/15/25 07:21 02/15/25 07:21 02/15/25 07:21 02/15/25 07:21
Objective Data
Lab Data
Lab Results
02/15/25 06:30
02/15/25 06:30
ESR 42 mm/hour (0-20) H 02/12/25 06:14
Estimated Creat Clear 61 ml/min 02/15/25 06:30
Lactic Acid 2.0 mmol/L (0.7-2.0) 02/11/25 05:32
Total Bilirubin 1.5 mg/dl (0.2-1.3) H 02/15/25 06:30
AST 68 U/L (17-59) H 02/15/25 06:30
ALT 36 U/L (0-50) 02/15/25 06:30
Alkaline Phosphatase 227 U/L (38-126) H 02/15/25 06:30
C-Reactive Protein Cancelled 02/14/25 13:11
Most recent labs reviewed.
Micro Results:
02/11/25 01:34 Blood Culture - Preliminary
Blood/Venous No Growth in 4 days- Final report to follow
02/11/25 00:59 Blood Culture - Preliminary
Blood/Venous No Growth in 4 days- Final report to follow
02/10/25 16:40 Blood Culture - Preliminary
Blood/Venous No Growth in 4 days- Final report to follow
02/13/25 05:29 Blood Parasites Smear - Final
Blood/Venous
02/12/25 16:17 Blood Parasites Smear - Final
Blood/Venous
02/11/25 15:15 Streptococcus Screen (BETSY) - Final
Throat/Pharynx No Beta Hemolytic Streptococci Isolated
Streptococcus Rapid Screen - Final
Rapid Strep Screen (Group A) Negative
02/12/25 18:21 Influenza Type A (PCR) - Final
Nasalpharynx Not Detected
Influenza Type A (H1) (PCR) - Final
Not Detected
Influenza Type A (H3) (PCR) - Final
Not Detected
Influenza Type B (PCR) - Final
Not Detected
Resp Syncytial Virus Type A (PCR) - Final
Not Detected
Resp Syncytial Virus Type B (PCR) - Final
Not Detected
Adenovirus DNA (PCR) - Final
Not Detected
Human Metapneumovirus (PCR) - Final
Not Detected
Parainfluenza Virus Type 1 (PCR) - Final
Not Detected
Parainfluenza Virus Type 2 (PCR) - Final
Not Detected
Parainfluenza Virus Type 3 (PCR) - Final
Not Detected
Parainfluenza Virus Type 4 - Final
Not Detected
Rhinovirus (PCR) - Final
Not Detected
02/10/25 17:46 Urine Culture - Final
Urine NO GROWTH
02/11/25 06:05 Respiratory Culture - Final
Sputum Gram Stain - Final
02/10/25 19:13 Influenza Types A & B (EBSS) - Final
Nasal Swab Negative for Influenza A & B, NAAT
Negative results must be combined with clinical observations
and patient history.
Nucleic Acid Amplification test (NAAT)performed on the
swabr NOW platform.
02/10/25 16:40 Influenza Types A & B (BESS) - Final
Nasal Swab Negative for Influenza A & B, NAAT
Negative results must be combined with clinical observations
and patient history.
Nucleic Acid Amplification test (NAAT)performed on the
Ybrain ID NOW platform.
02/10/25 CXR: No radiographic evidence for pneumonia.
02/11/[address]: No CT evidence for an acute pulmonary process. 7 mm and 6 mm solid pulmonary nodules in the right middle lobe along the minor fissure. The [facility] Pulmonary Nodule Advisory Board will be notified. Mild mediastinal
lymphadenopathy, which is nonspecific but clinical correlation is recommended. Bilateral thyroid gland nodules. Recommend a follow-up thyroid ultrasound on a routine outpatient basis for further evaluation.
02/13/25 CT a/p: No acute pathology of the abdomen or pelvis identified. Small bilateral pleural effusions, right larger than left.
Care Review
Plan reviewed with: Physician (Dr. Elva Maravilla )
[2025-02-15] MEDS: LASIX 40 MG IV (11:29)
--- NOTE | 2025-02-15 12:36 | PN.CDI ---
CDI
- -
CDI:
Physician Documentation Request
Admit Date: 02/11/25 16:10
Dear Doctor New,
Patient admitted with fever of unknown origin.
02/14 PN, 'Febrile illness unclear if rheumatologic infectious....Continue doxycycline per infectious disease.'
On admission, WBC 17.5, T max 103.2 and HR >90.
Please clarify which of the following most accurately describes the status of the patient's infection:
Sepsis, POA of unclear source
Fever of unknown origin only
Other
Sepsis
- Systemic manifestations of infection, with 2 or more SIRS criteria which include:
- Fever >100.9 degrees F or hypothermia < 96.8 degrees F
- Leukocytosis - WBC > 12,000 or leukopenia - WBC < 4,000 or > 10% bands
- Tachycardia > 90 beats per minute
- Tachypnea - RR > 20 breaths per minute or PaCO2 , 32mmHg
Source: Merck Manual 2013
- Indicate the known or suspected organism
- Indicate the known or suspected underlying infection, such as FUO
Localized Infection Only, Without Systemic Illness
- indicate the site/source, such as FUO
Other
Use of terms such as suspected, likely, concern for, or probable (associated with a specific diagnosis that is being evaluated, monitored, or treated as if it exists) are acceptable and can be coded in the inpatient setting, when documented at the
time of discharge.
Thank you,
Sis SCOTT,RN,CCDS
CDI Specialist
Available via tiger text
Please use your independent medical judgment in providing your response.
--- NOTE | 2025-02-15 14:51 | W.PN.HOSP.TC ---
Today's Communication/Plan
-
Patient improving clinically and amenable to discharge home today.
Plan to continue doxycycline to complete 10-day empiric antibiotic course.
Plan to continue ibuprofen for an additional 5 days given suspected inflammatory condition.
Plan to follow-up with PCP, rheumatology, pulmonology, infectious disease upon discharge to further elucidate fever of unknown origin.
Assessment / Plan
Assessment / Plan
Patient is a 65-year-old male with no significant past medical history who presented to the ED after 5 days of generalized malaise, fevers, arthralgias, myalgias, and macular rash on arms and trunk. Patient subsequently had signs of right-sided
conjunctivitis. Extensive infectious workup pending.
#Fever of unknown origin only
Patient had fever, macular non-pruritic rash, arthralgias on presentation
Per ID, continue empiric doxycycline (day 10)
Infectious workup negative to date, including the following:
- Blood cultures, urine culture, group A strep, respiratory viral panel, Babesia, Anaplasma, Lyme, mono, hepatitis
CT chest (02/11): 2 solid pulmonary nodule (7 mm and 6 mm) in RML along minor fissure
CT abdomen/pelvis (02/13): No acute pathology of abdomen or pelvis. Small B/L pleural effusions.
Consider Adult Onset Still's Disease (ASD) given fever, arthralgias, rash, and ferritin >10,000
- Started ibuprofen
Per pulm, consider sarcoid given adenopathy
- LILIANA negative, ANTONI pending
CRP: >270
Consider steroids if infectious workup negative and no clinical improvement
Trend temperature curve, WBCs
- Afebrile, leukocytosis (likely inflammatory)
#Anemia�resolved
Hgb 13.0 today, resolved
Monitor CBC and clinical status
#Hypoxemia
Patient was hypoxic 02/13, prompting diuretics and echocardiogram
Echo (02/14): LVEF 60%. Normal LV systolic function. Normal diastolic function. Normal regional wall motion. No evidence of vegetation.
Patient has complaint of lower abdominal and bilateral lower extremity edema (1+); no respiratory complaints, lungs clear
Patient given 1 dose of Lasix 40 mg today
#Transient thrombocytopenia�resolved
Monitor CBC
Direct antiplatelet Ab: Negative
#Mild hyponatremia
Na 134 today, stable
Monitor BMP
#Thyroid nodules bilaterally
TSH 1.9 (02/13)
Follow-up outpatient with thyroid ultrasound
#Lung nodules
CT chest (02/11): 2 solid pulmonary nodule (7 mm and 6 mm) in RML along minor fissure
Per pulm, follow-up outpatient with repeat CT chest
# Mild direct hyperbilirubinemia
# Mild transaminitis
Etiology undetermined�likely 2/2 acute disease
Trend LFTs�today: T. bili 1.5, alk phos 227, AST 68, ALT 36
Plan to follow-up with outpatient CMP in 1 to 2-weeks
DVT ppx: Lovenox
CODE STATUS: full code
Anticipated Discharge: Today
Subjective/Interval History
-
Date of Service: February 15, 2025
Patient seen for bedside on hospital day #6. Nursing reports NAEO. Patient reports 'water retention' in his lower abdomen and legs. Patient reports he feels 'better, more energized.' Breathing is 'good.'
Objective Data
-
Labs:
Laboratory Results
02/15/25
06:30
WBC 23.6 H
Hgb 13.0
Hct 38.3 L
Plt Count 234 D
Sodium 134 L
Potassium 3.9
Chloride 103
Carbon Dioxide 22
BUN 35 H
Creatinine 1.4 H
Glucose 102 H
Calcium 9.0
Total Bilirubin 1.5 H
AST 68 H
ALT 36
Alkaline Phosphatase 227 H
Vital Signs:
Vital Signs
Temp Pulse Resp BP Pulse Ox
97.8 F 99 18 110/76 91
02/15/25 07:21 02/15/25 11:29 02/15/25 07:21 02/15/25 11:29 02/15/25 07:21
I&O
02/14/25 02/15/25 02/16/25
06:59 06:59 06:59
Intake Total 960 / 960 900 / 900
Balance 960 / 960 900 / 900
Review of Systems
-
History Source: Patient
Constitutional: Reports Fatigue; Denies Fever or Chills
EENT: Reports Other (Dry mouth); Denies Sore Throat
Respiratory: Denies Cough, Trouble Breathing or Wheezing
Cardiac: Denies Chest Pain, Palpitations or Syncope
Abdomen/GI: Denies Abdominal Pain, Nausea, Vomiting or Diarrhea
Genitourinary: Denies Difficulty Voiding
Musculoskeletal: Reports Joint Pain (Improved from recent days) and Edema (Patient reports edema in his lower extremities)
Skin: Reports Rash ([place] macular rash on trunk and extremities)
Neuro: Denies Headache, Weakness or Numbness
Physical Exam
-
General: No Apparent Distress and Comfortable; Negative Respiratory Distress
HEENT: Normocephalic and Atraumatic
Respiratory: Clear to Auscultation and Non Labored Respirations; Negative Wheezes or Crackles
Cardiac: S1/S2 and Irregular Rhythm; Negative Murmur, Rub, Gallop, Tachycardic or Bradycardic
GI: Soft, Nontender and Normal Bowel Sounds
Musculoskeletal: Edema, Right Lower Extrem (1+ pitting edema) and Edema, Left Lower Extrem (1+ pitting edema); Negative No Cyanosis
Skin: Warm, Dry and Rash (Faint pink macular rash on trunk and extremities)
Neuro: AO x 3, No Motor Deficits and No Sensory Deficits
Psych: Calm
[2025-02-15 15:21] LABS: Syphilis/T. pallidum Ab Reflex Negative (Negative)
[2025-02-15 15:25] VITALS: BP 144/78
--- NOTE | 2025-02-15 16:30 | CM ---
Patient has switched to inpatient 02/11/25, patient made aware that he is an inpatient.
Plan; Home today no needs.
[2025-02-15 17:53] LABS: ANA, IgG Reflex to HEp-2 Detected (None Detected)
--- NOTE | 2025-02-15 18:13 | W.DCSUMMARY ---
Discharge Summary
Discharge Data
Date of Admission: 02/11/25
Date of Discharge: 02/15/25
-
Pending Results: Yes
Additional Pending Results:
Elements of the infectious workup are still pending, including testing for parvovirus, Hallam spotted fever, syphilis, and HIV
Hospital Course
Discharging Physician : Obey Wolff MD; Francis Maravilla MD
Disposition : Home
Primary care physician : None �patient was referred to the [facility] run clinic to establish care
Principal Discharge diagnosis : Fever of unknown origin; anemia; thrombocytopenia; hyponatremia; acute hypoxemic respiratory failure
Chronic Discharge diagnosis : N/A
Hospital Course : Patient is a 65-year-old male with no significant past medical history who presented to the [facility] emergency department with complaint of 5 days of fevers, myalgias, and malaise. Patient also reported a mild
productive cough with clear mucus, sore throat, and diffuse muscle and joint aches. On presentation the patient's vital signs were as follows: Temperature 103.2 F, pulse 119, blood pressure 120/80, respiratory rate 20, SpO2 95% on RA. The patient
continued to be intermittently febrile and tachycardic throughout the first couple days of his hospital course. The patient also developed a pink macular rash on his trunk and extremities. With consultation from infectious disease and pulmonology,
the patient underwent an extensive infectious and autoimmune workup for his condition. The patient was started empirically on doxycycline 100 mg p.o. every 12 hours due to suspected infectious etiology. Additionally, the patient was also started
empirically on ibuprofen 600 mg p.o. 3 times daily due to suspected inflammatory condition, including Adult Onset Still's Disease. The patient was treated supportively with cyclobenzaprine for his myalgias. During the hospital stay, the patient
had an episode of hypoxia, orthopnea overnight, and was found to have crackles on lung auscultation. The patient intermittently required 1 to 2 L of supplemental oxygen. The patient received 2 doses of Lasix due to suspected pulmonary and lower
extremity edema during the hospital stay. The patient developed mild, transient anemia, thrombocytopenia, and hyponatremia that resolved without issue during the hospital stay. The patient underwent various imaging studies (as detailed in the
'important imaging findings' section below), though none of these studies revealed an etiology of the patient's presenting complaint of fever, myalgias, and malaise. The patient was incidentally found to have thyroid and pulmonary nodules on
imaging, which should be investigated further in the outpatient setting. The patient remained afebrile for over 2 days prior to discharge. The patient was medically cleared for discharge to home. The patient is encouraged to follow-up with
infectious disease, rheumatology, pulmonology, and his primary care physician to further investigate his condition.
Important imaging findings :
CT abdomen/pelvis - IMPRESSION:
1. No acute pathology of the abdomen or pelvis identified.
2. Small bilateral pleural effusions, right larger than left.
3. Mild diverticulosis. No evidence of acute diverticulitis.
Chest X-Ray (02/13/2025) - IMPRESSION:
1. No acute disease of the chest.
2. Mild cardiomegaly. Stable.
Chest CT (02/11/2025) - IMPRESSION:
1. No CT evidence for an acute pulmonary process.
2. 7 mm and 6 mm solid pulmonary nodules in the right middle lobe along the minor fissure. The [facility] Pulmonary Nodule Advisory Board will be notified.
3. Mild mediastinal lymphadenopathy, which is nonspecific but clinical correlation is recommended.
4. Bilateral thyroid gland nodules. Recommend a follow-up thyroid ultrasound on a routine outpatient basis for further evaluation.
Chest X-Ray (02/10/2025) - IMPRESSION:
1. No radiographic evidence for pneumonia.
2. Mild cardiomegaly.
3. Moderate osteoarthritis of the left glenohumeral joint.
Procedure findings : N/A
Discharge Plan
-
Patient Disposition: Home (Routine Discharge)
Discharge Diagnosis/Procedures: Fever of unknown origin; acute hypoxemic respiratory failure
Condition: Good
Diet: As tolerated
Activity: As tolerated
Driving Restrictions: As prior to admission
Bathing Restrictions: None
Activity Restrictions/Additional Instructions:
Follow-up CBC with differential and CMP to trend white blood cell count and liver function tests
Follow-up with PCP at [place] [facility]. Office staff will be provided with patient's information, and they will call him to schedule an appointment.
Follow-up with PCP at resident clinic to schedule US thyroid to follow-up findings of thyroid nodules.
Follow-up with rheumatology (Osiris Fitzpatrick MD) in 2 to 3 weeks.
Follow-up with infectious disease (Paulina Gomez MD). Infectious disease physician will call patient when the pending labs are resulted.
Follow-up with pulmonology (Kiran Valdez MD) for pulmonary function tests, sleep study, and follow-up CT chest in 3 months for lung nodules
Referrals:
Kiran Valdez MD [Active, Pulmonary Medicine]
Referral Note: Pulmonary nodules
Osiris Fitzpatrick MD [Consulting Staff, Rheumatology] - in two to three weeks
NONE,* [Family Provider, Internal Medicine]
Paulina Gomez MD [Active, Infectious Diseases]
Additional Discharge Medication Instructions: Continue doxycycline 100 mg by mouth every 12 hours for 5 more days (11 more doses) to complete 10-day course
Continue ibuprofen 600 mg by mouth 3 times daily with food for suspected inflammatory condition
Continue pantoprazole 40 mg by mouth daily for 10 more days for GI prophylaxis while taking ibuprofen
Continue cyclobenzaprine nightly as needed until follow-up with PCP
Prescriptions:
New
cyclobenzaprine 10 mg Tablet
5 mg PO HS Qty: 10 0RF
doxycycline hyclate 100 mg Capsule
100 mg PO Q12 Qty: 11 0RF
ibuprofen 600 mg Tablet
600 mg PO TID 5 Days Qty: 15 0RF
pantoprazole 40 mg Tablet,Delayed Release (Dr/Ec)
40 mg PO DAILY AT 0700 10 Days Qty: 10 0RF
Continued
ibuprofen 200 mg Tablet
400 mg PO BIDPRN PRN (Reason: mild pain)
turmeric-turmeric root extract
1 DAILY PRN (Reason: ALLERGIES)
Discharge Orders:
Discharge Patient (As Directed); Ordered 02/15/25
Ordered By: Obey Wolff
Discharge Date and Time
Print Language: MOROCCAN
[2025-02-15 19:26] LABS: RMSF IgG Antibodies <1:64 (<1:64); RMSF IgM Antibodies <1:64 (<1:64)
[2025-02-16 05:43] LABS: Parvo B19 Ab, IgM 0.41 IV (<=0.89); Parvo Virus B19 Ab, IgG 0.24 IV (<=0.90)
[2025-02-16 10:06] LABS: ANA, HEp-2, IgG <1:80 (<1:80)
== END 2025-02-15 18:39 | disposition home or self-care (01) | DRG 864 ==
LOC: 4 WEST ACU 16:10
PROVIDERS: Emergency Medicine; Internal Medicine; ADMITTING PHYSICIAN Hospitalist; ATTENDING PHYSICIAN Hospitalist; CONSULT PHYSICIAN Internal Medicine Critical Care Medicine; EMERGENCY PHYSICIAN Emergency Medicine; OTHER PHYSICIAN Internal Medicine Infectious Disease
DX: R50.9 Fever, unspecified (principal); J96.01 Acute respiratory failure with hypoxia; E87.1 Hypo-osmolality and hyponatremia; N17.9 Acute kidney failure, unspecified; D64.9 Anemia, unspecified; D69.6 Thrombocytopenia, unspecified; K57.30 Diverticulosis of large intestine without perforation or abscess without bleeding; R91.1 Solitary pulmonary nodule; M19.012 Primary osteoarthritis, left shoulder; E80.6 Other disorders of bilirubin metabolism; E04.1 Nontoxic single thyroid nodule; M06.1 Adult-onset Still's disease; H10.9 Unspecified conjunctivitis
CPT/HCPCS: 71046; 71250; 74177; 80048; 80053; 81003; 81015; 82164; 82248; 82550; 82728; 83010; 83605; 83615; 84443; 85025; 85027; 85045; 85652; 86023; 86038; 86039; 86140; 86308; 86618; 86704; 86706; 86747; 86757; 86780; 86803; 87015; 87040; 87070; 87086; 87205; 87207; 87340; 87389; 87468; 87484; 87502; 87633; 87798; 87811; 87880; 93005; 93306; 94640; 96360; 96361; 99284; Q9967

== ENCOUNTER 2025-02-16 23:06 | Inpatient (IN) | payer OTHER, SELFPAY ==
[2025-02-16 19:45] VITALS: BP 138/87
[2025-02-16 20:16] LABS: ALT (SGPT) 43 U/L (0-50); AST (SGOT) 93 U/L (17-59); Albumin 2.7 g/dl (3.5-5.0); Alkaline Phosphatase 221 U/L (38-126); Blood Urea Nitrogen 42 mg/dl (9-20); Calcium 9.0 mg/dl (8.4-10.2); Carbon Dioxide 23 mmol/L (22-30); Chloride 104 mmol/L (98-107); Glucose 168 mg/dl (70-99); Potassium 3.2 mmol/L (3.5-5.1); Sodium 135 mmol/L (135-145); Total Protein 5.3 g/dl (6.3-8.2); eGFR 51.99
[2025-02-16 20:23] LABS: COVID-19 Antigen Negative (Negative); Hematocrit 38.8 % (39.0-52.0); Hemoglobin 13.4 g/dL (13.0-18.0); Mean Corp Hgb Conc. 34.5 g/dL (33.0-37.0); Mean Corpuscular Volume 86.6 fL (80.0-94.0); Nucleated Red Blood Cells % 0.6 % (-); Platelet Count 228 10^3/uL (130-400); Red Cell Dist. Width 14.4 % (11.5-14.5)
[2025-02-16 20:36] LABS: Troponin I 0.114 ng/ml
[2025-02-16 20:58] VITALS: BP 158/85
[2025-02-16 21:00] VITALS: BP 150/82
[2025-02-16 21:07] LABS: Venous Blood Gas B.E. -0.5 mmol/L (-4 to +4); Venous Blood Gas O2 Sat % 73.3 %
[2025-02-16 21:39] LABS: C-Reactive Protein > 270.00 mg/L (0.0-10.00)
[2025-02-16 22:00] VITALS: BP 139/93
--- NOTE | 2025-02-16 22:47 | ED.GENMED ---
History of Present Illness
General
Chief Complaint: Breathing Problem
Source: patient and spouse
Time Seen by Provider: 02/16/25 20:10
History of Present Illness
History of Present Illness:
Note:
CHIEF COMPLAINT(S)
Fever, dehydration, shortness of breath, and rash.
HISTORY OF PRESENT ILLNESS
The patient is a 65-year-old male, who initially presented last Friday with symptoms of a high fever and dehydration. He was subsequently discharged yesterday after treatment. During his initial hospitalization, the patient received significant
amounts of saline solution, which his spouse noted may have led to fluid retention. The patients oxygen levels were reported to be low during his previous stay, requiring monitoring, yet he did not receive oxygen therapy upon discharge.
After returning home, a family friend, who is a respiratory therapist, advised the patient to return to the hospital due to shallow breathing, with an oxygen saturation of approximately 81% at home. At presentation today, the patients oxygen
saturation was noted to be 85%.
While admitted previously, the patient experienced episodes of fever, though he currently denies having had a fever since being discharged. He also developed a rash, which has mostly cleared, but now exhibits purulence and scabbing around the right
eye. The patients spouse reported that he was quite alert before his illness but now seems cognitively impaired, possibly due to hypoxia. Additionally, he experienced significant joint pain rendering him unable to walk, necessitating wheelchair
assistance upon his former admission.
The patient is being treated with intravenous Lasix and has been on doxycycline and ibuprofen. The initial cause of his symptoms remains undetermined, with cultures reportedly pending. A chest X-ray and additional laboratory tests are planned to
further evaluate his condition.
ADDITIONAL HISTORY OBTAINED FROM SOURCES OTHER THAN THE PATIENT
Additional history was obtained from the patients spouse. She confirmed the patients history of fever and low oxygen saturation at home and noted the patients shallow breathing. She also mentioned a recent family trip which could be relevant to his
symptoms.
EXTERNAL RECORDS REVIEWED
Records from the previous hospital visit indicate the patient was treated with doxycycline, ibuprofen, and received significant saline infusion. Current symptoms and treatment regimens are based on these records.
SOCIAL DETERMINANTS AFFECTING HEALTH
The patient recently attended a family gathering, which might be relevant to the cause of his current symptoms.
REVIEW OF SYSTEMS
- General: Fever previously, now absent. Reports difficulty sleeping and cognitive changes.
- Respiratory: Reports of shallow breathing and low oxygen saturation.
- Skin: Rash previously present; now scabbing and purulence around the right eye.
- Musculoskeletal: Significant joint pain, difficulty walking, muscle weakness.
PHYSICAL EXAM
General: Cognitively impaired appearance, awake, alert, and oriented.
Skin: Purulent drainage and scabbing around the right periocular area.
Head: Normocephalic, atraumatic.
Eye, Ears, Nose, Mouth, and Throat: Periocular scabbing and purulent drainage on the right eye. Oral mucosa is moist.
Cardiovascular: Regular heart rhythm, no significant murmurs, but bilateral lower extremity edema is present.
Respiratory: Non-labored respirations with the presence of rhonchi and rales at the right lung base.
Musculoskeletal: Significant edema of lower extremities, normal range of motion otherwise.
Neurological: Patients appear cognitively impaired in comparison with the spouse�s statement of baseline mentation.
Psychiatric: Cooperative but appears cognitively impaired as compared to his baseline functioning as noted by family.
PROBLEM LIST
Acute:
- Hypoxia
- Rash with pus
- Cognitive impairment
PLAN
- Review complete lab results, including cultures.
- Obtain chest X-ray to further evaluate respiratory symptoms.
- Administer oxygen therapy as indicated.
- Reassess the need for diuretics and adjust diuretic therapy as required.
- Consider infectious disease consultation if the rash or fever persist as diagnostic uncertainty persists.
- Monitor vital signs closely, especially oxygen saturation levels.
- Admit for overnight observation to stabilize oxygen levels and reassess clinical status.
DIFFERENTIAL DIAGNOSIS
The Differential Diagnosis includes, in no particular order and is not limited to:
1. Pneumonia
2. Congestive heart failure
3. Deep vein thrombosis with resultant pulmonary embolism and hypoxia
4. Viral infection
5. Allergic reaction
6. Sepsis
7. Medication side effect (Lasix impact on electrolytes)
8. Exacerbation of chronic lung diseases (e.g., chronic obstructive pulmonary disease, asthma)
9. Hypothyroidism
10. Myocardial infarction
EKG
My independent EKG interpretation is:
- Time of EKG: Not specified
- Rhythm: Sinus rhythm
- Heart Rate: 105 bpm
- [place]: Normal
- Notable Intervals: Not specified
- Abnormalities Observed: None mentioned
Disposition:
SUMMARY OF ENCOUNTER
The patient, a 65-year-old male, presented to the emergency department with increased shortness of breath, confusion, and hypoxia, noting oxygen saturation at 85% on room air. A history of fever due to an undetermined cause was noted from previous
records. Recent tests showed elevated white blood cell count of 30,000, up from 23,000 the previous day, and other concerning markers including a lactic acid of 2.1 and troponin of 0.114. Elevated BNP at 5,[address] suggests heart failure. Chest CT showed
trace pericardial effusion and pleural effusions. The recent echocardiogram indicated an ejection fraction of 60% and pulmonary artery pressure of 47mmHg with no vegetation on valves, ruling out one potential cause of symptoms. The discharge summary
noted a prior fever of unknown cause with further testing pending. Consideration was given for possible heart failure or myocarditis and determination was made to manage with diuretics. Discussion of possibly needing IV heparin and an urgent
echocardiogram was noted. Blood cultures were pending; thus antibiotics were not administered immediately.
DISPOSITION
Admit for further observation and treatment.
ASSESSMENT
Hypoxia, shortness of breath, possible heart failure or myocarditis, elevated troponin and BNP, previously undiagnosed fever.
EMERGENCY TREATMENTS ADMINISTERED
Diuretics administered to manage potential fluid overload and heart failure. IV heparin considered but not administered.
MANAGEMENT OF THE PATIENTS CARE WAS DISCUSSED WITH
Hospitals and possibly cardiology were consulted regarding management options, including the need for an urgent echocardiogram.
PLAN
Monitor vital signs and oxygen levels closely. Administer diuretics to address fluid overload. Consider urgent echocardiogram to further evaluate cardiac function. Continue to hold off on antibiotics while blood cultures are pending. Discuss patient
management with cardiology for potential myocardial concerns.
INDEPENDENT REVIEW OF LABS AND INTERPRETATION OF TESTS
- My independent review of CBC indicates leukocytosis, with a white blood cell count of 30,000.
- My independent review of chemistry panel shows hypokalemia at 3.2, elevated lactic acid at 2.1, and mild renal impairment with creatinine at 1.5.
- My independent review of cardiac markers reveals an elevated troponin of 0.114 and elevated BNP at 5,140.
- My independent chest CT interpretation shows trace pericardial effusion and pleural effusions with no evidence of central pulmonary embolism.
MEDICATION RECONCILIATION
Patient was discharged on doxycycline (assumed continuation as per discharge summary) and has been receiving diuretics in the emergency department to manage fluid overload.
MEDICAL DECISION MAKING
-Complexity of Data Reviewed: Chronic conditions affecting care include symptoms of hypoxia and heart failure concerns. Differential diagnosis includes pneumonia, congestive heart failure, deep vein thrombosis with resultant pulmonary embolism,
viral infection, allergic reaction, sepsis, medication side effects, exacerbation of chronic lung diseases, hypothyroidism, and myocardial infarction.
-Data:
Category 1
- Non-emergency department records reviewed: Previous discharge summary and echocardiogram from February 14, 2025.
- Clinical information was obtained from an independent historian (spouse).
Category 2
- My independent review of CBC, chemistry panel, cardiac markers, and chest CT.
Category 3
- Discussion of management with hospitalists and possibly cardiology about the potential need for IV heparin and further cardiac assessment.
-Risk:
- Prescription medication was prescribed: continuation of current medications pending blood culture results and cardiac evaluation.
- Care significantly affected by Social Determinants of Health: Recent attendance at a family gathering prior to symptom onset.
DIAGNOSIS
- Acute respiratory failure, unspecified whether with hypoxia or hypercapnia (J96.90)
- Heart failure, unspecified (I50.9)
- Leukocytosis, unspecified (D72.829)
- Hypokalemia (E87.6)
- Renal failure, unspecified (N19)
Past History
Past History
ED Past Medical History: None
ED Past Surgical History: None
Social History
Tobacco: Non-smoker
Alcohol: None
Drug: None
Living: with family
Employment: Employed
Phy Exam
Physical Exam
Physical Exam:
.
Scores
Heart Failure Risk
Heart Failure Risk Score: Yes
History of Stroke or TIA: No
History of intubation for respiratory distress: No
Heart rate on ED arrival >/= 110: Yes
SaO2 <90% on arrival on room air: Yes
HR >/=110 during 3min walk test (or too ill to perform test): Yes
ECG has acute ischemic changes: No
Urea >/=12mmol/L (BUN 33.6mg/dL): Yes
Serum CO2>/=35mmol/L: No
Troponin I or T elevated to CO Level (0.4mg/dL): Yes
NT-proBNP >/=5,000ng/L (5,000pg/ml): Yes
HF Risk Score: 7
Admission Status: VERY HIGH RISK 69.8% Consider admission to hospital
Course
Orders/Labs/Results
Orders:
Orders
02/16/25 19:49
ECG [Electrocardiogram (*1)] Urgent
Reason for Study: Shortness of Breath
02/16/25 19:50
EKG- Treatment ONCE
02/16/25 19:57
C-Reactive Protein Urgent
Comment: ADD ON
COVID-19 Antigen Urgent
Source: Nasal Swab
Complete Blood Count/With Diff Urgent
Comprehensive Metabolic Panel Urgent
Erythrocyte Sed Rate Urgent
Comment: ADD ON
NT-proBNP Urgent
Troponin I Urgent
Influenza A+B Rapid Molecular Urgent
BETSY Source: Nasal Swab
Specimen Description:
02/16/25 20:34
Add On- LAB Urgent
Tests Added?: crp, ESR
02/16/25 20:49
Lactic Acid Q4H
Comment: CANCEL 2nd LACTIC ACID IF 1st LACTIC ACID IS LESS THAN 2
Venous Blood Gas Urgent
%Oxygen/Room Air: 4L
Blood Culture Q30M
BETSY Source: Blood/Venous
Specimen Description:
Blood Culture Q30M
BETSY Source: Blood/Venous
Specimen Description:
02/16/25 21:01
CT Chest PE Study Urgent
Comment:
Reason For Exam: hypoxia, tachycardia, recent hospitalization
02/16/25 22:18
Furosemide [Lasix] 40 mg IV NOW STA
02/16/25 23:06
Admit/Transfer Patient As Directed
Co-Sign Provider:
Level of Care: Inpatient admission
Assign to:: Telemetry
Physician / Group: [email or web address]
Diagnosis: acute HF NOS, volume overload, Hypoxic RI
Reason for Telemetry: Subacute Heart Failure
Date to Stop Telemetry: 02/18/25
Time to Stop Telemetry: 11:00
Reason for Hospitalization: Suspect volume overload complicated by acute HF with elevated prBNP - presumed
Cardiomyopathy
Associated with worsening hypoxemic RI requiring NC O2
Expected length of stay greater than two midnights?: Yes
ELOS- Estimated Length of Stay in days: 3
I certify the patient meets the requirements for IP care: Yes
02/16/25 23:08
Code Status As Directed
Resuscitation Status: Full Code
02/16/25 23:10
Potassium Chloride [KCl] 40 meq 0.9% Sodium Chloride 250 ml [Nss] 250 ml IV NOW
02/16/25 23:32
Urinalysis Reflex To Culture Urgent
Date Specimen was Collected: 02/16/25
Time Specimen was Collected: 23:20
Urine Microscopic Reflex Cult Urgent
02/17/25 00:45
Lactic Acid Q4H
Comment: CANCEL 2nd LACTIC ACID IF 1st LACTIC ACID IS LESS THAN 2
02/18/25 11:00
DC Protocol for Telemetry ONCE
Abnormal Lab Results
02/16/25 02/16/25 02/16/25
19:57 20:49 23:32
WBC 30.3 H 10^3/uL
(4.8-10.8)
RBC 4.48 L 10^6/uL
(4.70-6.10)
Hct 38.8 L %
(39.0-52.0)
MPV 11.2 H fL
(7.4-10.4)
Abs Immat Gran (auto) 2.5 H 10^3/uL
(0-0.05)
Absolute Neuts (auto) 25.9 H 10^3/uL
(1.4-6.5)
Absolute Lymphs (auto) 0.9 L 10^3/uL
(1.2-3.4)
Absolute Monos (auto) 0.8 H 10^3/uL
(0.1-0.6)
Immature Gran % 8.2 H %
(0-0.5)
Neutrophils % 85.7 H %
(42.2-75.2)
Lymphocytes % 3.1 L %
(20.5-51.1)
ESR 54 H mm/hour
(0-20)
Potassium 3.2 L mmol/L
(3.5-5.1)
BUN 42 H mg/dl
(9-20)
Creatinine 1.5 H mg/dL
(0.7-1.3)
Glucose 168 H mg/dl
(70-99)
Lactic Acid 2.1 H mmol/L
(0.7-2.0)
Total Bilirubin 2.0 H mg/dl
(0.2-1.3)
AST 93 H U/L
(17-59)
Alkaline Phosphatase 221 H U/L
(38-126)
Troponin I 0.114 H* ng/ml
C-Reactive Protein > 270.00 H mg/L
(0.0-10.00)
Total Protein 5.3 L g/dl
(6.3-8.2)
Albumin 2.7 L g/dl
(3.5-5.0)
Ur Occult Blood Reflex 1+ A
(Negative)
Urine Albumin (Reflex) 2+ A
(Neg - Trace)
02/16/25 19:57
02/16/25 19:57
Vital Signs
Initial and Last Documented VS:
Initial Vital Signs
Temp Pulse Resp BP Pulse Ox
98.9 F 116 20 138/87 89
02/16/25 19:45 02/16/25 19:45 02/16/25 19:45 02/16/25 19:45 02/16/25 19:45
Last Documented Vital Signs
Temp Pulse Resp BP Pulse Ox
99.5 F 104 25 136/80 96
02/16/25 21:04 02/16/25 23:21 02/16/25 20:58 02/16/25 23:21 02/16/25 22:51
*Pulse Oximetry
SaO2: 96
Nasal Cannula flow liters per minute: 4
Oxygen Mode of Delivery: Room air
Patient hypoxic: yes
*Critical Care Note
Total Time (30-74mins, 75-104mins- exclusive of procedures): 65 minutes
Data Reviewed
Source: patient and family
Patient Management
Discussion with other providers: Shake Packer (Cardiology)
ED Attending Note
-
Portions of this chart may have been created with voice recognition software.� Occasional wrong word or��sound alike� substitutions may have occurred due to the inherent limitations of voice recognition software.
Discharge Plan
Departure
Patient Disposition: Admit
Date of Disposition: 02/16/25
Time of Disposition: 22:48
Admit to: IMU
Presentation/result/management discussed w/ accepting MD/DO: Hospitalist
Discharge Problem:
Volume overload, Acute renal insufficiency, Acute inflammatory disease, Acute lactic acidosis
Prescriptions:
No Action
ibuprofen 600 mg Tablet
600 mg PO TID 5 Days Qty: 15 0RF
turmeric
1 gummy PO DAILYPRN PRN (Reason: allergies)
doxycycline hyclate 100 mg capsule
100 mg PO BID
Patient Comments:
02/16/2025, filled on 02/15/2025 and instructed to take 1 capsule BID for 5 days.
Referrals:
UNKNOWN - PT DOES,NOT KNOW [Family Provider]
Discharge Date and Time
Print Language: MOLDOVAN
--- NOTE | 2025-02-16 22:51 | HPS.HSE ---
Family Physician
-
Family Physician: NOT KNOW UNKNOWN - PT DOES
Chief Complaint
-
POx s 805 on RA , increased Damian swelling
History of Present Illness
HPI
65M DC' d on 02/15/25 , following admission since 02/11/25 for FUO, diffuse rash with some target lesions, NEG lyme screen, NEG Babesias, NEG extensive infection w/u;
- Familt brought back due to low POx s 805 on RA , increased Damian swelling
- afebrile T 98.9 on arrival
- WCC 30,
Medical History
Past Medical History
Past Medical History: Reports None
Past Surgical History: Reports Other
Additional Past Surgical History:
T&A
Social History
Tobacco: Non-smoker
Alcohol: Occasional
Drug: None
Personal:
Family History
Family History: Not pertinent
Allergies / Home Medications
Allergies reflects when Allergies were last updated in [employer].
Home Medications with original date entered in [employer]
Allergy/Medication List:
Allergies
Allergy/AdvReac Type Severity Reaction Status Date / Time
No Known Allergies Allergy Verified 02/10/25 16:18
Home Medications
ibuprofen 200 mg tablet 400 mg PO BIDPRN PRN mild pain 02/10/25
Review of Systems
-
Constitutional: Reports No Symptoms
EENT: Reports No Symptoms
Respiratory: Reports No Symptoms
Cardiac: Reports No Symptoms
Abdomen/GI: Reports No Symptoms
: Reports No Symptoms
Musculoskeletal: Reports Edema
Skin: Reports No Symptoms
Neurological: Reports No Symptoms
Endocrine: Reports No Symptoms
Hematologic/Lymphatic: Reports No Symptoms
Psych: Reports No Symptoms
Physical Exam
Vital Signs
Vital Signs
Temp Pulse Resp BP Pulse Ox
99.5 F 106 25 150/82 96
02/16/25 21:04 02/16/25 21:00 02/16/25 20:58 02/16/25 21:00 02/16/25 22:51
Physical Exam
General: Other (65y M covered in multiple blankets.)
HEENT: Moist mucous membranes and PERRLA
Respiratory: Clear; No Wheezes, Rales or Rhonchi
Cardiac: S1/S2, Regular Rhythm and Tachycardia; No Murmur
GI: Soft, Non Tender, Non Distended and Normal Bowel Sounds
Musculoskeletal: Edema, Left Lower Extremity and Edema, Right Lower Extremity
Skin: Other (Diffuse maculopapular rash over trunk and extremities. Not raised / crusted. No blisters / bullae.)
Neuro: AO x 3
Laboratory Results
-
02/16/25 19:57
02/16/25 19:57
Laboratory Results
Lactic Acid 2.1 mmol/L (0.7-2.0) H 02/16/25 20:49
Total Bilirubin 2.0 mg/dl (0.2-1.3) H 02/16/25 19:57
AST 93 U/L (17-59) H 02/16/25 19:57
ALT 43 U/L (0-50) 02/16/25 19:57
Alkaline Phosphatase 221 U/L (38-126) H 02/16/25 19:57
Troponin I 0.114 ng/ml H* 02/16/25 19:57
Data Reviewed
-
Diagnostic Radiology: Report Reviewed by me
CT Scan: Report Reviewed by me
Medical Tests (Nuc Med, Echo, EKG etc): Report Reviewed by me
Lab Data: Labs Reviewed by me
Old Records: Reviewed
Impression/Plan
-
Vital Signs
Selected Entries
02/11/25
05:24 02/13/25
06:00 02/14/25
06:00
Actual Weight 94.461 kg 98.6 kg 98.033 kg
Temp Pulse Resp BP Pulse Ox
99.5 F 106 25 150/82 96
02/16/25 21:04 02/16/25 21:00 02/16/25 20:58 02/16/25 21:00 02/16/25 22:51
Readmission labs
02/15/25 02/16/25 02/16/25
06:30 19:57 20:49
WBC 23.6 H 30.3 H
Immature Gran % 7.3 H 8.2 H
ESR 54 H
Sodium 134 L 135
Potassium 3.2 L
Creatinine 1.4 H 1.5 H
eGFR 56.48 51.99
Lactic Acid 2.1 H
Total Bilirubin 1.5 H 2.0 H
AST 68 H 93 H
Alkaline Phosphatase 227 H 221 H
Troponin I 0.114 H*
C-Reactive Protein > 270.00 H
Nno-Z-Makmsakmoxz Pept 5140
Albumin 2.7 L
02/16/25 CTC PE study
1. No evidence of central pulmonary embolism.
2. There is a likely loculated small left pleural effusion with associated left-sided atelectasis.
There is a possible trace right pleural effusion with right-sided atelectasis.
There is suggestion of groundglass opacities and interlobular septal thickening may represent mild edema.
3. Small pericardial effusion.
4. 1.9 cm hypodense nodule within the posterior left hemithyroid which a nonemergent thyroid ultrasound is recommended.
02/14/25 TTE
LVEF 65
no WMAL
Nl diuastolic dysfuction
Mildly thickened mitral valve leaflets.
Mild to moderate mitral regurgitation.
Mild to moderate tricuspid regurgitation.
No evidence of vegetation seen. However if clinical suspicion is high would suggest RD.
02/13/25 CT AP
1. No acute pathology of the abdomen or pelvis identified.
2. Small bilateral pleural effusions, right larger than left.
3. Mild diverticulosis. No evidence of acute diverticulitis.
CXR
1. No acute disease of the chest.
2. Mild cardiomegaly. Stable.
02/10/2025 CXR
1. No radiographic evidence for pneumonia.
2. Mild cardiomegaly.
3. Moderate osteoarthritis of the left glenohumeral joint.
02/11/[address] evidence for an acute pulmonary process.
2. 7 mm and 6 mm solid pulmonary nodules in the right middle lobe along the minor fissure. The [facility] Pulmonary Nodule Advisory Board will be notified.
3. Mild mediastinal lymphadenopathy, which is nonspecific but clinical correlation is recommended.
4. Bilateral thyroid gland nodules. Recommend a follow-up thyroid ultrasound on a routine outpatient basis for further evaluation.
Last hospitalist admission: 02/11/25 - 02/15/25
DC DXs: Fever of unknown origin; anemia; thrombocytopenia; hyponatremia; acute hypoxemic respiratory failure
ASSESSMENT & PLAN
Suspect volume overload complicated by acute HF with elevated prBNP - presumed Cardiomyopathy ? NSAIDs related
Associated with worsening hypoxemic RI requiring NC O2
- gained 3 -4 kg
- Hypoxic 02/13, prompting diuretics and TTE ( 02/14/25 LVEF 60%.. Normal diastolic function)
- lower abdominal and bilateral lower extremity edema
- IV Lasix 40 daily
- daily wt
- [facility] card consult
Elevated TPNI proabaly NIMI > NSTEMI
- trend TPNI
- Hold of Heparin gtt
- await [facility] acrd consult
GEE
- Hold of NSAIDs
- Trend Cr
Recent admission progress note prior to DC
FUO - resolved on ibuprofen DDX : Adult Still Disease with ferritin >10,000, to Follow-up with Rheumatology
leukocytosis - continues to trend up
Diffuse rash (some target lesions) - resolving
Thrombocytopenia resolved
Right conjunctivitis, resolved
Pharyngitis/bronchitis, resolved
Elevated inflammatory markers ESR/CRP/ferritin
Enlarged bilateral thyroid gland nodules
-CT chest mild mediastinal LAD
- CT a/p negative
- CXR negative
- Blood cx's neg to date
- Rapid Group A strep: negative
- Respiratory viral panel PCR negative
- Babesia smear negative
- Anaplasma, Ehrlichia PCR negative
- Lyme screen negative
- Parvovirus serology pending
- RMSF serology pending
- Syphilis pending
- HIV screen pending
Transient thrombocytopenia�resolved
Monitor CBC
Direct antiplatelet Ab: Negative
Mild hyponatremia : resolved
- Monitor BMP
Thyroid nodules bilaterally
TSH 1.9 (02/13)
- Follow-up outpatient with thyroid ultrasound
Lung nodules
- CT chest (02/11): 2 solid pulmonary nodule (7 mm and 6 mm) in RML along minor fissure
- Per Pul consult on last admission , follow-up outpatient with repeat CT chest
Mild direct hyperbilirubinemia
Mild transaminitis
Etiology undetermined�likely 2/2 acute disease
- Trend LFTs
DVT Px: LMWH
Full code
IP TLM
[2025-02-16 23:00] VITALS: BP 136/80
[2025-02-16] MEDS: LASIX 40 MG IV (23:21)
[2025-02-16] MEDS: KCL 270 MEQ IV (23:38)
[2025-02-16 23:51] LABS: Urine Character Clear (Clear)
[2025-02-17] VITALS (24 sets, daily range): BP systolic 110–154; BP diastolic 78–105; PULSE 2–105; BMI 32.3
[2025-02-17 02:06] LABS: Troponin I 0.107 ng/ml
--- NOTE | 2025-02-17 03:25 | TRANSFER ---
Pt transferred from ED to room 407-1. Pt assisted to stand and pivot from stretcher to bed. Pt transported on 6L O2 94%. AAOx3. Pt noted to be SOB ambulating. Bed alarm in placed for safety. Oriented to room, call fernandez within reach.
[2025-02-17] MEDS: PROTONIX 40 MG PO (06:03)
[2025-02-17 07:35] LABS: Hematocrit 38.1 % (39.0-52.0); Hemoglobin 13.0 g/dL (13.0-18.0); Mean Corp Hgb Conc. 34.1 g/dL (33.0-37.0); Mean Corpuscular Volume 86.8 fL (80.0-94.0); Platelet Count 231 10^3/uL (130-400); Red Cell Dist. Width 14.3 % (11.5-14.5)
[2025-02-17 07:53] LABS: Troponin I 0.084 ng/ml
[2025-02-17 07:58] LABS: ALT (SGPT) 44 U/L (0-50); AST (SGOT) 83 U/L (17-59); Albumin 2.7 g/dl (3.5-5.0); Alkaline Phosphatase 209 U/L (38-126); Blood Urea Nitrogen 37 mg/dl (9-20); Calcium 9.1 mg/dl (8.4-10.2); Carbon Dioxide 24 mmol/L (22-30); Chloride 108 mmol/L (98-107); Estimated Creatinine Clearance 65 ml/min; Glucose 126 mg/dl (70-99); Potassium 3.8 mmol/L (3.5-5.1); Sodium 138 mmol/L (135-145); Total Protein 5.5 g/dl (6.3-8.2); eGFR > 60.00
[2025-02-17] MEDS: LASIX 40 MG IV ×2 (08:27→13:20)
--- NOTE | 2025-02-17 08:30 | CON.CAR ---
Addendum entered and electronically signed by Billy Wu MD 02/17/25 13:38:
I saw and examined the patient.
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
Comment: General: Well developed, well nourished in NAD.
Neck: Supple, no JVD, HJR, carotids +2 B/L, no bruits bilaterally.
Heart: Non displaced PMI, RRR, no murmurs, No S3, S4, no rubs.
Lungs: Scattered rhonchi
Extremities: No clubbing, cyanosis or edema bilaterally.
Neuro: Grossly nonfocal, awake, alert and oriented x3.
Shawn was admitted in February 2025 with fevers. He received 9 L of IV fluids. He did receive 2 doses of IV Lasix. He is now mated with shortness of breath and hypoxia. Cardiology is consulted for acute diastolic CHF. Troponin minimally elevated at
0.114 and is decreasing.
Will treat with IV Lasix and assess response. Will check echocardiogram. Did not feel there is evidence of myocarditis and management would not change at the present time.
Original Note:
Consultation
Consultation Request
Date/Time Consultation Requested: 02/17/25 at 0100
Date/Time Consultation Performed: 02/17/25 at 0947
Requesting Provider: Dr. Francis Maravilla
Performing Provider: Dr. Wu
Reason for Consultation: Acute HF and possible myocarditis
Medical History
-
History of Present Illness:
Patient came to the ER yesterday with SOB and hypoxia and was admitted with acute hypoxic respiratory failure and CHF, cardiology has been consulted. Patient was just admitted 02/11/25 until 02/15/25 with new onset fever, rash and arthralgias. Patient
was seen by ID and had imaging and labs. Blood cultures without growth. HIV, Hepatitis, parvovirus, Lyme and Rickettsia negative. ANTONI positive, ESR was 42 (now 54), CRP consistently greater than 270 and additional rheum labs pending. Ferritin was
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
arthralgias, but rash might have improved. Patient was seen by Pulm for mediastinal adenopathy and RML lobe nodule, as his oxygenation deteriorated there was concern for CHF and then IVFs were stopped, but prior to that he received 9 L IVFs. Patient
was given Lasix 40 mg IV x1 on 02/13/25 and 02/15/25, but was not discharged to home on Lasix even though admission weight was 208 lbs and discharge weight was 216 lbs. Patient continued on doxycycline at home in addition to the ibuprofen, but had
ongoing SOB and was hypoxic on home pulse ox test and so he came to the ER yesterday. pro-BNP was 5140, CT chest showed pulmonary edema and a small left pleural effusion and he was hypoxic and placed on 6 L NC. Patient given Lasix 40 mg IV x1 in the
ER and then 40 mg IV daily. Continues with arthralgias and change in mental status described as fogginess. Patient and deny chest pain. Initial Troponin was 0.114 and trended down thereafter. No acute ischemic changes. CT chest showed a small
pericardial effusion that was not seen on CT chest last admission and also not seen on echo last admission.
PMH:
Recent admission for fever of unknown origin, respiratory failure, acute HFpEF and rash 02/10/25 until 02/15/25
given 9 L IVFs for support during febrile illness
Past Medical History
Past Medical History: Other (in HPI)
Past Surgical History: Tonsilectomy
Social History
Tobacco: Former Smoker
Alcohol: Other (monthly or less)
Drug: None
Personal:
Living: With Family
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
Family History
Family History: Other (mother, sister and maternal aunt with rheumatologic conditions including Marisa's thyroiditis, Lupus and myasthenia gravis)
Allergies / Home Medications
Allergy/AdvReac Type Severity Reaction Status Date / Time
No Known Allergies Allergy Verified 02/16/25 19:49
�Medication �Instructions �Recorded �Confirmed �Type
ibuprofen 600 mg tablet 600 mg PO TID Anti-inflammatory 5 02/15/25 02/16/25 Rx
days #15 tabs
doxycycline hyclate 100 mg capsule 100 mg PO BID 02/16/25 02/16/25 History
turmeric 1 gummy PO DAILYPRN PRN allergies 02/16/25 02/16/25 History
Review of Systems
-
History Source: Patient and Family ( sitting bedside)
All other systems: Negative unless noted
Physical Exam
Vital Signs
Temp Pulse Resp BP Pulse Ox
100.3 F 116 18 128/92 94
02/17/25 07:11 02/17/25 07:11 02/17/25 07:11 02/17/25 07:11 02/17/25 07:11
GEN: NAD. AAOx3
HEENT: EOMI, MMM
LUNGS: 6L NC. Diffuse rales without wheeze
CV: Reg, S1/S2, no murmur
ABD: soft, BS+, NT, ND
EXT: No clubbing, cyanosis, lesions or edema B/L
NEURO: Gross non-focal
Lab Results
02/17/25 07:17
02/17/25 07:17
Troponin I 0.084 ng/ml H* 02/17/25 07:17
Gnt-L-Dvzowkybmad Pept 5140 pg/ml 02/16/25 19:57
Impression / Plan
-
PCP: None, used to follow with Dr. Damon who is now retired and needs a new PCP
Card: None prior to admission
Rheum: Scheduled to see Dr. Mary Dumont
Impression:
Admitted with acute hypoxic respiratory insufficiency and acute HFpEF 02/16/25
Recent admission for fever of unknown origin, respiratory failure, acute HFpEF and rash 02/10/25 until 02/15/25
given 9 L IVFs for support during febrile illness
Acute HFpEF
Small pericardial effusion on CT chest 02/16/25 that was not seen on echo 02/14/25
Elevated Troponin
Mediastinal adenopathy
Diffuse macular rash
Elevated LFTs
Hypokalemia
Echo 02/14/25: EF 60%, mild conc LVH, normal diastolic function, mild to mod MR, mild to mod TR with PAP 47 mmHg
Plan:
-Patient came to the ER yesterday with SOB and hypoxia and was admitted with acute hypoxic respiratory failure and CHF, cardiology has been consulted. Patient was just admitted 02/11/25 until 02/15/25 with new onset fever, rash and arthralgias.
Patient was seen by ID and had imaging and labs. Blood cultures without growth. HIV, Hepatitis, parvovirus, Lyme and Rickettsia negative. ANTONI positive, ESR was 42 (now 54), CRP consistently greater than 270 and additional rheum labs pending.
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
improvement in arthralgias, but rash might have improved. Patient was seen by Pulm for mediastinal adenopathy and RML lobe nodule, as his oxygenation deteriorated there was concern for CHF and then IVFs were stopped, but prior to that he received 9
L IVFs. Patient was given Lasix 40 mg IV x1 on 02/13/25 and 02/15/25, but was not discharged to home on Lasix even though admission weight was 208 lbs and discharge weight was 216 lbs. Patient continued on doxycycline at home in addition to the
ibuprofen, but had ongoing SOB and was hypoxic on home pulse ox test and so he came to the ER yesterday. pro-BNP was 5140, CT chest showed pulmonary edema and a small left pleural effusion and he was hypoxic and placed on 6 L NC. Patient given Lasix
40 mg IV x1 in the ER and then 40 mg IV daily. Continues with arthralgias and change in mental status described as fogginess. Patient and deny chest pain. Initial Troponin was 0.114 and trended down thereafter. No acute ischemic changes. CT
chest showed a small pericardial effusion that was not seen on CT chest last admission and also not seen on echo last admission.
-ECG reviewed by me shows sinus tachycardia with nonspecific ST changes
-Initial Troponin 0.114 and trending down thereafter. No chest pain. Specifically asked patient and about chest pain while supine and there is no chest pain reported. Suspect elevated Troponin is due to acute HF.
-There is a concern for myocarditis as a possible sequelae of his undiagnosed condition. Myocarditis can be seen with viral and autoimmune conditions. Recheck echo, but do not strongly suspect myocarditis as a cause for CHF and it seems more likely
that 9 L IVFs from last admission and inadequate diuresis prior to discharge is more likely.
-Patient's mother, sister and maternal aunt have rheumatologic disease, myasthenia gravis, Marisa's thyroiditis and lupus. Patient is scheduled to see Dr. Dumont at Rheum office as a new patient on Friday. ANTONI positive and additional labs pending.
-Not sure if there is a role for GDMT as this appears to be iatrogenic.
-Patient needs a PCP, Dr. Damon is retired.
[2025-02-17 09:39] LABS: Lipase 72 U/L (23-300)
[2025-02-17] MEDS: ROCEPHIN 1000 MG IV (10:11)
[2025-02-17] MEDS: STERILE WATER FOR INJECTION 10 ML IV (10:11)
[2025-02-17] MEDS: OMNIPAQUE 50 ML PO (10:35)
--- NOTE | 2025-02-17 12:05 | CON.ID ---
Consultation
-
Date/Time Consultation Requested: February 17, 2025 0813
Date/Time Consultation Performed: February 17, 2025 1205
Requesting Provider: Dr. Francis Maravilla
Performing Provider: Dr. Paulina Gomez
Reason for Consultation: Readmission, leukocytosis
Chief Complaint / Past History
Chief Complaint
Leg swelling and shortness of breath with deep breathing
History of Present Illness
65-year-old male without past medical history well-known to be from recent hospitalization February 11 to February 15 when he presented with 6 days of persistent fevers, chills, profound myalgias, sore throat, mild nonproductive cough, rhinorrhea and rash.
Rash was diffuse with some annular ring lesions and target lesions. He also developed right conjunctivitis while in the hospital. Extensive work up predominantly unremarkable including tick-borne illness, blood cx's, HIV, syphilis, parvovirus,
rapid group A strep, respiratory viral panel PCR, rheumatological work-up, LILIANA-I, CT a/p, TTE. Chest CT RML 6mm and 7mm pulm nodule, mild mediastinal lymphadenopathy, bilateral thyroid nodules. He was on empiric doxycycline for possible mycoplasma
erythema multiforme. Ferritin significantly elevated, hospitalist added around the clock ibuprofen for possible Adult Still disease with subsequent improvement of myalgias, fever, and rash. He then developed pleuritic SOB; CT a/p showed small
bilateral pleural effusions, he received furosemide. TTE unremarkable.He was discharged on empiric doxycycline and referred to rheumatology. While at home, he developed worsening BLe edema, return of pleuritic SOB. He was hypoxic 86% in RA. He
came back to ED 02/16. Tachycardic. WBC 32.7. Troponin 0.114. Bcx's x [address]: no PE, there is likely loculated small left pleural effusion and possible trace right pleural effusion, mild pulmonary edema, small pericardial effusion.
He was started on vancomycin and ceftriaxone today. Cardiology has been consulted. Patient reports no fever. The rash has resolved. Myalgias continue to improve. His main issue is the breathing and leg swelling. No headache. No nausea
vomiting or diarrhea. No urine symptoms. No cough.
Past History
Past Medical History: None
Additional Past Surgical History:
Tonsillectomy
Allergy History:
No Known Allergies Allergy (Verified 02/16/25 19:49)
Medications Reviewed: Yes
Current Antibiotics:
Vancomycin
Ceftriaxone
Social History
Tobacco: Non-Smoker
Alcohol: Occasional
Drug: None
Personal:
Living: With Family (2 cats)
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
Family History
Family History: Not Pertinent
Review of Systems
Review of Systems
General: Change in Appetite; Negative Fever or Chills
HEENT: Negative Sinus Problems, Headache or Pharyngitis
Cardiovascular: Chest Pain (Deep breathing), Dyspnea and Edema
Respiratory: Negative Cough
Gasteroenterology: Negative Nausea, Vomiting or Diarrhea
Genital / Urological: Negative Dysuria or Flank Pain
Endocrine: Weakness
Musculoskeletal: Negative Arthralgias
Skin / Hair / Nails: Negative Rash
Neurological: Negative Dizziness
All systems: All other systems were reviewed and were negative
Vital Signs
Temp Pulse Resp BP Pulse Ox
99.3 F 122 18 132/92 96
02/17/25 11:35 02/17/25 11:35 02/17/25 11:35 02/17/25 11:35 02/17/25 11:35
Physical Exam
Physical Exam
Constitutional: Non-toxic
Head: Other (No frontal or max or sinus tenderness)
Eyes: No Conjunctival Hemorrhage and Sclera Anicteric
Cardiovascular: S1/S2 and Other (Tachycardic)
Pulmonary: Other (Decreased breath sounds)
Gastrointestinal: Soft, Non Tender, Non Distended and Normal Bowel Sounds
Genito-Urinary: Negative CVA Tenderness
Extremities: Edema (Bilateral lower extremity 2+)
Musculoskeletal: Negative Joint Swelling, Joint Effusion or Spinal Tenderness
Skin: Negative Rash (Previous rash resolved)
Neurological: AO x 3; Negative Meningeal Signs
Lab / Diagnostic Study Results
02/17/25 07:17
02/17/25 07:17
Abs Immat Gran (auto) 2.5 10^3/uL (0-0.05) H 02/16/25 19:57
Absolute Neuts (auto) 25.9 10^3/uL (1.4-6.5) H 02/16/25 19:57
Absolute Lymphs (auto) 0.9 10^3/uL (1.2-3.4) L 02/16/25 19:57
Absolute Monos (auto) 0.8 10^3/uL (0.1-0.6) H 02/16/25 19:57
Absolute Basos (auto) 0.0 10^3/uL (0-0.2) 02/16/25 19:57
Immature Gran % 8.2 % (0-0.5) H 02/16/25 19:57
Neutrophils % 85.7 % (42.2-75.2) H 02/16/25 19:57
Lymphocytes % 3.1 % (20.5-51.1) L 02/16/25 19:57
Monocytes % 2.6 % (1.7-9.3) 02/16/25 19:57
Eosinophils % 0.3 % (0-6) 02/16/25 19:57
Basophils % 0.1 % (0-2) 02/16/25 19:57
ESR 54 mm/hour (0-20) H 02/16/25 19:57
Lactic Acid 2.1 mmol/L (0.7-2.0) H 02/17/25 01:27
C-Reactive Protein > 270.00 mg/L (0.0-10.00) H 02/16/25 19:57
Ur Squamous Epith Cells 6-10 /LPF (Few) 02/16/25 23:32
Microbiology Results
Micro:
02/17/25 08:38 Blood Culture - Pending
Blood/Venous
02/17/25 09:14 Blood Culture - Pending
Blood/Venous
02/16/25 20:49 Blood Culture - Pending
Blood/Venous
02/16/25 20:49 Blood Culture - Pending
Blood/Venous
02/16/25 19:57 Influenza Types A & B (BESS) - Final
Nasal Swab Negative for Influenza A & B, NAAT
Negative results must be combined with clinical observations
and patient history.
Nucleic Acid Amplification test (NAAT)performed on the
[employer] platform.
02/16/[address]: No evidence of central pulmonary embolism. There is a likely loculated small left pleural effusion with associated left-sided atelectasis. There is a possible trace right pleural effusion with right-sided atelectasis. There is
suggestion of groundglass opacities and interlobular septal thickening may represent mild edema Small pericardial effusion. 1.9 cm hypodense nodule within the posterior left hemithyroid which a nonemergent thyroid ultrasound is recommended.
Assessment / Plan
# Acute CHF - pulm edema, LE edema
# Hypoxemic resp failure
# Troponin leak
# Leukocytosis trending up
# Recent fever, diffuse rash, conjunctivitis, myalgias - unclear source; suspected Adult still's vs viral vs mycoplasma
- Agree with Cardiology consult
- Suspect viral myocarditis
- Check Coxsackie, echovirus,mycoplasma serologies
- Check anti-streptolysin and DNAse-B ab.
- Check RF, CCP
- DC Vancomycin
- OK with empiric ceftriaxone.
- Trend wbc
Care Review
Plan reviewed with: Physician (Dr. Elva Maravilla)
--- NOTE | 2025-02-17 12:22 | W.PN.HOSP.TC ---
Today's Communication/Plan
-
Additional infectious and rheumatological workup is pending.
Continue diuresis for fluid overload. Empiric ceftriaxone, steroids started today.
Continue respiratory support with BiPAP.
Monitor pending imaging results (CTAP, echo).
Assessment / Plan
Assessment / Plan
Patient is a 65-year-old male with no significant past medical history before last week who was recently discharged from [facility] on 02/14/2025 after being admitted on 02/11/2025 for fever of unknown origin, pink macular rash on his trunk
and extremities, and arthralgias. During his hospital stay, the patient underwent an extensive infectious workup, which did not reveal the source of infection. The patient was without a fever for over 2 days before discharge, and he was discharged
on empiric doxycycline and ibuprofen for suspected infection or inflammatory disorder. The patient returned to [facility] due to hypoxia and lower extremity swelling bilaterally.
#Acute hypoxemic respiratory failure 2/2 suspected acute congestive heart failure
Patient's vitals on presentation: BP 138/87, HR 116, RR 20, T 98.9, SpO2 89%
Patient has shortness of breath, lower extremity edema, lower abdominal edema
Patient was in acute respiratory distress earlier this afternoon, necessitating transfer to ICU for BiPAP
WBCs 32.7 w/ left shift
VBG: pH 7.3, pCO2 42, pO2 43, HCO3 24.8
proBNP: 5140
Echocardiogram (02/14): EF 60%. Normal diastolic function. No regional wall motion abnormalities.
Diuresis with IV Lasix due to fluid overload
Per pulm, empiric steroids started
Additional infectious, rheumatological workup is pending
Per ID, possible viral myocarditis. Empiric ceftriaxone started.
Consider further workup with additional cardiac imaging (CT/MRI), endomyocardial biopsy
Cardiology, pulmonology, infectious disease following
#Acute kidney injury
Cr 1.3 this morning, decreased slightly from 1.5 on admission
UA (02/16): RBCs, 2+ vomiting, few bacteria, 1+ occult blood
Avoid nephrotoxic medications, including holding NSAIDs
Nephrology following
#Elevated troponin
Troponins trended: 0.114 > 0.107 > 0.084 > 0.085 > 0.079
Echocardiogram (02/14): EF 60%. Normal diastolic function. No regional wall motion abnormalities.
Consider additional cardiac imaging, endomyocardial biopsy
Cardiology following
#Abdominal pain
CT chest: Per radiologist, no evidence of central PE. Loculated small left pleural effusion. Trace right pleural effusion. Small pericardial effusion.
Relevant lab: T. bili 2.1, D bili 1.6, AST 83, ALT 44, alk phos 209
CTAP: Pending
Continue to monitor clinical status
ID following
DVT PPx: SC Lovenox
CODE STATUS: Full
Anticipated Discharge: > 48 hours
Subjective/Interval History
-
Date of Service: February 17, 2025
Patient was seen at the bedside on hospital day #2. Nursing reports NAEO. While at the bedside, patient describes abdominal pain most pronounced in his right upper quadrant, which he has had for a couple days. Patient was recently treated in the ""hospital for a fever of unknown origin. An extensive infectious workup revealed no source of infection. Patient states he continued his recommended regimen of doxycycline upon discharge and until presentation at the hospital yesterday. Patient
has become increasingly short of breath subsequent to his prior discharge, and he is currently on 6 L at the bedside.
Objective Data
-
Labs:
Laboratory Results
02/17/25
07:17
WBC 32.7 H
Hgb 13.0
Hct 38.1 L
Plt Count 231
Sodium 138
Potassium 3.8
Chloride 108 H
Carbon Dioxide 24
BUN 37 H
Creatinine 1.3
Glucose 126 H
Calcium 9.1
Total Bilirubin 2.1 H
AST 83 H
ALT 44
Alkaline Phosphatase 209 H
Vital Signs:
Vital Signs
Temp Pulse Resp BP Pulse Ox
99.3 F 122 18 132/92 96
02/17/25 11:35 02/17/25 11:35 02/17/25 11:35 02/17/25 11:35 02/17/25 11:35
I&O
02/16/25 02/17/25 02/18/25
06:59 06:59 06:59
Output Total 1150 / 1150
Balance -1150 / -1150
Review of Systems
-
History Source: Patient
Constitutional: Reports Fatigue; Denies Fever or Chills
EENT: Reports No Symptoms Reported
Respiratory: Reports Trouble Breathing (Patient short of breath on 6 L)
Cardiac: Denies Chest Pain, Palpitations or Syncope
Abdomen/GI: Reports Abdominal Pain (Intermittent for the last couple days); Denies Nausea, Vomiting or Diarrhea
Musculoskeletal: Reports Edema
Skin: Reports Rash (Recent pink macular rash, now resolved); Denies Itching
Neuro: Denies Headache or Lightheadedness
Physical Exam
-
General: Well Developed, Well Nourished and Respiratory Distress (Short of breath on 6 L)
HEENT: Normocephalic and Atraumatic
Respiratory: Clear to Auscultation and Other (Saturating 92% on 6 L while in bed); Negative Wheezes, Crackles or Accessory Resp Muscle Use
Cardiac: Regular Rhythm and S1/S2; Negative Murmur, Rub or Gallop
GI: Soft, Normal Bowel Sounds, Tender (TTP, particularly in RUQ with radiation across abdomen; no rigidity or guarding) and Distended (Some fluid appreciated in lower abdomen)
Musculoskeletal: Edema, Right Lower Extrem (3+ pitting edema) and Edema, Left Lower Extrem (3+ pitting edema); Negative Cyanosis
Skin: Warm and Dry; Negative Rash (Leeper macular rash seen in recent days appears to have resolved)
Neuro: Awake, Alert, No Motor Deficits and No Sensory Deficits
Psych: Calm
--- NOTE | 2025-02-17 12:26 | CON.PUL ---
Consultation
Consultation Request
Date/Time Consultation Requested: 02/17/25
Date/Time Consultation Performed: 02/17/25
Performing Provider: Mehul
Reason for Consultation: SOB
Medical History
-
History of Present Illness:
65-year-old male with recent admission for 5-day history of fevers, 24 hours of diffuse rash, right conjunctivitis, myalgias. CT chest with nodule. Evaluation led to CHF possibility and possible underlying autoimmune condition, placed on lasix and
NSAIDs with plan for OP FU. Discharged 02/15. Returns with worsening SOB, fatigue, malaise. at bedside noting worsening symptoms. Returned to ER with leucocytosis, CT showing loculated effusion and small cardiac effusion, he was
reportedly 81% on RA at home.
We are consulted for re-eval.
Past Medical History
Past Medical History: Other (see list below)
Social History
Tobacco: Non-smoker
Alcohol: None
Drug: None
Family History
Family History: Reviewed & Not Pertinent
Allergies / Home Medications
Allergies
Allergy/AdvReac Type Severity Reaction Status Date / Time
No Known Allergies Allergy Verified 02/16/25 19:49
Home Medications
�Medication �Instructions �Recorded �Confirmed �Last Taken �Type
ibuprofen 600 mg tablet 600 mg PO TID Anti-inflammatory 5 02/15/25 02/16/25 02/16/25 Rx
days #15 tabs
doxycycline hyclate 100 mg capsule 100 mg PO BID 02/16/25 02/16/25 02/16/25 History
turmeric 1 gummy PO DAILYPRN PRN allergies 02/16/25 02/16/25 Unknown History
Review of Systems
-
History Source: Patient
All other systems: Negative unless noted
Vitals / Labs / Diagnostic Testing
Vital Signs
Temp Pulse Resp BP Pulse Ox
99.3 F 122 18 132/92 96
02/17/25 11:35 02/17/25 11:35 02/17/25 11:35 02/17/25 11:35 02/17/25 11:35
Lab Data
02/17/25 07:17
02/17/25 07:17
Microbiology
02/16/25 19:57 Nasal Swab Influenza Types A & B (BESS) - Final
Negative for Influenza A & B, NAAT
Negative results must be combined with clinical observations
and patient history.
Nucleic Acid Amplification test (NAAT)performed on the
[employer] NOW platform.
Diagnostic Testing:
Physical Exam
-
HEENT: Normocephalic, Anicteric and Moist Mucous Membranes
Cardiovascular: S1/S2 and Regular Rhythm
Respiratory: Clear and Non-Labored Respirations
GI: Soft, Non Distended and Non Tender
Neurology: Awake, Alert and Other (lethargic, but arousable)
Skin: Warm, Dry and Other (diaphoretic, mild)
General: Comfortable and Other (NAD)
Assessment
-
65-year-old male with recent admission for 5-day history of fevers, 24 hours of diffuse rash, right conjunctivitis, myalgias. CT chest with nodule. Evaluation led to CHF possibility and possible underlying autoimmune condition, placed on lasix and
NSAIDs with plan for OP FU. Discharged 02/15. Returns with worsening SOB, fatigue, malaise. at bedside noting worsening symptoms. Returned to ER with leucocytosis, CT showing loculated effusion and small cardiac effusion, he was
reportedly 81% on RA at home. We are consulted for re-eval.
Acute hypoxic respiratory failure, 81% on RA
Loculated pleural effusion
Small pericardial effusion
Leukocytosis
Lethargy
7 mm right middle lobe nodule
Mediastinal adenopathy, 2.4 cm subcarinal lymph node
URI symptoms, viral symptoms x 5 days
Crackles on exam, increased shortness of breath
Mild heart failure
Fevers
Diffuse macular rash
Mild hyponatremia
Thyroid nodule
Suspected sleep disordered breathing
Plan
At this time, he is placed on supplemental O2, titrate as needed
Home O2 eval placed--91% on RA (completed 02/15, baseline)
Reviewed CT findings--nodules/would recommend FU OP Imaging
He has new effusions noted on CT repeat, agree with repeat ECHO
Workup negative to date on prior admission, infectious disease following
Motrin started per primary service
Inflammatory markers are high, obtain autoimmune panel now
Would start empiric IV steroids once bloodwork obtained
EKG obtained. Normal sinus rhythm, nonspecific abnormalities
Lasix, crackles resolved on prior admission
ECHO with stable findings, mild PH noted (with snoring)- would recommend outpatient sleep study
Current effusion too small to tap, repeat ECHO pending
Consider inflammatory process such as autoimmune disease, sarcoid given adenopathy
For now would recommend follow-up CT chest in 3 months with pulmonary follow-up
Reviewed with patient and at length
We will follow
Diagnostic Data
Chest X-Ray: 02/13/25- No acute disease of the chest. Mild cardiomegaly. Stable.
02/10/25- 1. No radiographic evidence for pneumonia.
2. Mild cardiomegaly.
3. Moderate osteoarthritis of the left glenohumeral joint.
CT Scan: CHEST 02/11/25- No CT evidence for an acute pulmonary process. 7 mm and 6 mm solid pulmonary nodules in the right middle lobe along the minor fissure. The [facility] Pulmonary Nodule Advisory Board will be notified. Mild mediastinal
lymphadenopathy, which is nonspecific but clinical correlation is recommended. Bilateral thyroid gland nodules. Recommend a follow-up thyroid ultrasound on a routine outpatient basis for further evaluation.
02/16/25- 1. No evidence of central pulmonary embolism.
2. There is a likely loculated small left pleural effusion with associated left-sided atelectasis. There is a possible trace right pleural effusion with right-sided atelectasis. There is suggestion of groundglass opacities and interlobular septal
thickening may represent mild edema.
3. Small pericardial effusion.
4. 1.9 cm hypodense nodule within the posterior left hemithyroid which a nonemergent thyroid ultrasound is recommended.
Echo: 02/14/25- Normal left ventricular chamber size. Normal left ventricular systolic function. Left ventricular ejection fraction is 60% by Tovar's method of discs. Normal regional wall motion. Mild concentric left ventricular hypertrophy.
Normal diastolic function. Mitral valve opens normally. Mildly thickened mitral valve leaflets. Mild to moderate mitral regurgitation. Indexed LA volume is within normal range (15-34 mL/m2). Tricuspid valve opens normally. Mild to moderate
tricuspid regurgitation. Estimated pulmonary artery pressure of 47 mmHg, assuming a right atrial pressure of 13 mmHg.
There is no evidence of vegetation seen. However if clinical suspicion is high would suggest RD.
PFT's:
Reports and relevant images were personally reviewed.
Total time spent on this consultation/encounter __78__ minutes which includes review of history, physical exam, medications, laboratory data, personal review of imaging, extensive review of outpatient records, discussion with care team and
respiratory therapy.
[2025-02-17 13:09] LABS: Glucose - Point of Care 251 mg/dl (70-99)
[2025-02-17] MEDS: TYLENOL 650 MG PO (13:13)
[2025-02-17 13:16] LABS: Troponin I 0.085 ng/ml
[2025-02-17 13:22] LABS: B.E. 3.0 mmol/L; HCO3 25.5 mmol/L (21-28); O2 Saturation % 98.0 % (94-98); PCO2 32 mmHg (35-48); PO2 80 mmHg (83-108)
[2025-02-17 13:23] LABS: O2 Therapy 10
--- NOTE | 2025-02-17 13:49 | PTCARENOTE ---
Received pt post BLENDER / COOK for worsening SOB on 15 liters midflow NC. RR 37-42, orthopneic. Lungs with crackles half way up on the left and dim on the right throughout. Dr. Buckley at the bedside upon arrival. Also spoke with Dr. randi Maravilla regarding the
plan of care for abdominal CT scan, will hold off for now. Placed on BiPap 12/6 with 13 liters oxygen for RR 37-[address] Buckley. Pt was informed of the plan of care regarding monitoring his oxygenation & continued diuresis. Right eye with crusted
scabs and dried yellow exudate on the corner of his lashes. He stated he thought it was conjunctivitis, but never officially diagnosed. +2 L/E ankle to pedal edema. +BSx4. Safe environment maintained.
--- NOTE | 2025-02-17 13:52 | W.PN.UPDATE ---
Update Note
Progress Note Update
She is presenting with acute hypoxemic respiratory failure with SpO2's in the 80s on room air.
Exam and laboratory findings consistent with heart failure labs for recent 2D echocardiogram 3 days ago demonstrating EF of 60% without diastolic dysfunction and no regional wall motion abnormalities. Strange to develop acute heart failure so
rapidly especially in the setting. Unclear cause of fevers on previous admission that proved with empiric antibiotics infectious workup thus far rheumatologic workup thus far negative from previous admission. However of note visible chest
discomfort especially when he takes a deep breath and is retrosternal discomfort cannot completely exclude myocarditis as a cause. If without improvement then we will likely require further cardiac imaging and potentially endomyocardial biopsy for
further assessment.
If needed can trial steroids colchicine to assess for improvement. and friend who is a respiratory therapist were advocating for a LP. Discussed this with ID did not believe this was indicated at this time and I agree with this as he is
without evidence of meningismus.
Rapid response was called. Went to bedside. Updated ICU/high school social studies tutor agreed to accept him to the ICU on BiPAP. Medical Transcription Radiology will do bedside echo to reassess EF. Will need chest x-ray once he gets over there as well.
Should be noted that the room was incredibly hot and this could have also affected his breathing
At this time I would continue empiric doxycycline. Recently discussed this case with infectious diseases, cardiology and ICU. I have even asked cardiology for potential cardiac MRI/CT plus minus endomyocardial biopsy via [facility] without
response at this time.
updated who was sitting outside the room
--- NOTE | 2025-02-17 14:08 | W.PN.INTV ---
Addendum entered and electronically signed by Christiano Buckley MD 02/17/25 15:41:
Patient continues to be febrile.
Infectious workup negative so far. CRP significantly elevated, ferritin also noted to be very high, mildly abnormal LFTs with positive ANTONI. Adult onset stills disease also in differential diagnosis.
- Discussed with ID service, will start empiric steroids, Solu-Medrol 125 mg IV push followed by 40 mg IV twice daily
Original Note:
Today's Communication / Plan
Recommendations
- Continue IV diuresis
- Start BiPAP support in view of tachypnea and increased work of breathing
- Await follow-up echocardiogram, cardiology consult
- Continue telemetry monitoring
- Topical erythromycin, right eye
Assessment
-
65-year-old male with recent admission for 5-day history of fevers, 24 hours of diffuse rash, right conjunctivitis, myalgias. CT chest with nodule. Evaluation led to CHF possibility and possible underlying autoimmune condition, placed on lasix and
NSAIDs with plan for OP FU. Discharged 02/15. Returns with worsening SOB, fatigue, malaise. at bedside noting worsening symptoms. Returned to ER with leucocytosis, CT showing loculated effusion and small cardiac effusion, he was
reportedly 81% on RA at home. We are consulted for re-eval.
#1. Acute hypoxic respiratory failure, 81% on RA
- Patient emergently evaluated in ICU, saturating around 92% on 10 L supplemental oxygen however respiratory rate ranging between 37-41
- Initiate BiPAP support, ABG reviewed no evidence of hypercapnia, respiratory alkalosis likely related to tachypnea and hypoventilation
- Continue IV Lasix twice a day, follow-up echo pending
- Extensive infectious workup has been unremarkable, currently being worked up for possible acute viral syndrome with myocarditis/pericarditis
- ID service on case, defer antimicrobial to infectious disease service
#2. Pulmonary edema with suspect Acute CHF
- EF was preserved on echocardiogram about a week ago, follow-up imaging pending considering there is concern for possible viral syndrome with the possibility of myocarditis/pericarditis
- Continue IV Lasix as ordered
- BiPAP support, follow-up echo
- Continue telemetry monitoring
- Keep potassium above 4 and magnesium at least 2 or above
#3. Small left loculated effusion
- Fairly small on imaging, no safe window for thoracentesis, high risk of pneumothorax if procedure were to be attempted
- Continue diuresis for now and monitor
#4. Right middle lobe nodule, 7 mm, with Mediastinal adenopathy, 2.4 cm subcarinal lymph node
- Mediastinal lymphadenopathy likely reactive
- Will pursue outpatient CT surveillance, patient will follow-up with pulmonary clinic
#5. Suspected viral syndrome
- Right-sided conjunctivitis, rash noted around the ocular region, encrustation noted patient denies any visual changes or eye pain
-Add topical erythromycin
#6. Suspected sleep disordered breathing
-Will pursue sleep study as outpatient
DVT prophylaxis with subcu Lovenox
Critical Care time [01] mins -45- The patient is admitted for acute critical illness for the treatment of vital organ failure and/or prevention of further life-threatening conditions. Total care includes time spent in review of history, physical
exam, medications, hemodynamic/ventilator parameters, laboratory data, imaging and discussion with house staff, pharmacy, respiratory therapy, winding inspector, and nursing.
Diagnostic Data
Chest X-Ray: 02/13/25- No acute disease of the chest. Mild cardiomegaly. Stable.
CT Scan: CHEST 02/11/25- No CT evidence for an acute pulmonary process. 7 mm and 6 mm solid pulmonary nodules in the right middle lobe along the minor fissure. The [facility] Pulmonary Nodule Advisory Board will be notified. Mild mediastinal
lymphadenopathy, which is nonspecific but clinical correlation is recommended. Bilateral thyroid gland nodules. Recommend a follow-up thyroid ultrasound on a routine outpatient basis for further evaluation.
CT Chest 02/16/25- 1. No evidence of central pulmonary embolism.
2. There is a likely loculated small left pleural effusion with associated left-sided atelectasis. There is a possible trace right pleural effusion with right-sided atelectasis. There is suggestion of groundglass opacities and interlobular septal
thickening may represent mild edema.
3. Small pericardial effusion.
4. 1.9 cm hypodense nodule within the posterior left hemithyroid which a nonemergent thyroid ultrasound is recommended.
Echo: 02/14/25- Normal left ventricular chamber size. Normal left ventricular systolic function. Left ventricular ejection fraction is 60% by Tovar's method of discs. Normal regional wall motion. Mild concentric left ventricular hypertrophy.
Normal diastolic function. Mitral valve opens normally. Mildly thickened mitral valve leaflets. Mild to moderate mitral regurgitation. Indexed LA volume is within normal range (15-34 mL/m2). Tricuspid valve opens normally. Mild to moderate
tricuspid regurgitation. Estimated pulmonary artery pressure of 47 mmHg, assuming a right atrial pressure of 13 mmHg.
There is no evidence of vegetation seen. However if clinical suspicion is high would suggest RD.
Subjective Dataa
Subjective Data
Date of Service:
Date of Service: February 17, 2025
Objective Data
Data Reviewed
Vital Signs / I&O / Oxygen:
Vital Signs
Temp Pulse Resp BP Pulse Ox
102.0 F H 113 31 122/85 97
02/17/25 13:10 02/17/25 14:00 02/17/25 14:00 02/17/25 14:00 02/17/25 14:00
Intake and Output
02/16/25 02/17/25 02/18/25
06:59 06:59 06:59
Output Total 1150 / 1150
Balance -1150 / -1150
SaO2 97
Nasal Cannula flow liters per 10
minute
Labs/Micro/Reports
Lab Data
02/17/25 07:17
Laboratory Results
02/17/25
13:16
pH 7.51 H
pCO2 32 L
pO2 80 L
HCO3 25.5
O2 Delivery Level 10
Microbiology
02/16/25 19:57 Nasal Swab Influenza Types A & B (BESS) - Final
Negative for Influenza A & B, NAAT
Negative results must be combined with clinical observations
and patient history.
Nucleic Acid Amplification test (NAAT)performed on the
[employer] platform.
--- NOTE | 2025-02-17 14:15 | RR ---
Received patient this am AAOX3. Forgetful at times. Pt O2 saturation 92% on 6 Liters of 02 via nasal cannula. Pt presenting with Dyspnea at rest and FARRELL. 1255- Pt began getting hypoxic with 02 saturation in the low 80's on 6L O2 via nasal cannula.
Respiratory Therapist at Bedside with primary RN. Pt put on 10L mid flow oxygen. O2 sat 91%. 13:05 Rapid response called. Temp 102.1- Tylenol PO given, HR [address]/SR on Telemetry. B/p 154/[address] Elva Maravilla an ICU nurses at
bedside. Pt given Lasix 40 mg IV as ordered. Report given an Pt transferred to ICU. Please see rapid response documentation sheet for further detail.
--- NOTE | 2025-02-17 14:30 | CM ---
CM following re: discharge planning.
Reviewed pt's chart, met with pt and pt's spouse at bedside.
Pt is a 65 year old male, admitted with primary dx of Suspect volume overload complicated by acute HF with elevated prBNP.
Per spouse, pt just was discharged home a few days ago with a plan to follow up with campus chaplain on an outpatient level and per spouse pt's oxygen level dropped to 81% and she decided to bring the pt back to the hospital. Pt lives with spouse 2SH,
3 steps to enter, has 2 supportive children. Pt described himself as independent in all areas [employer], works part time, drives. No DME, VN or SNF history.
PCP: per spouse she is looking for a new PCP and she feels it will be [facility] and she will call them to schedule an appointment.
Pharmacy: [facility].
D/C plan: uncertain at this time and will depend on pt's progress.
CM will follow with discharge plan updates as hospitalization progresses.
[2025-02-17 14:43] LABS: APTT 24.3 Sec (23.4-35.0); INR 1.17; PT 15.4 Sec (11.4-14.6)
[2025-02-17 15:02] LABS: Troponin I 0.079 ng/ml
[2025-02-17 15:26] LABS: Blood Urea Nitrogen 35 mg/dl (9-20); Calcium 8.5 mg/dl (8.4-10.2); Carbon Dioxide 29 mmol/L (22-30); Chloride 103 mmol/L (98-107); Estimated Creatinine Clearance 61 ml/min; Glucose 137 mg/dl (70-99); Magnesium 2.3 mg/dl (1.6-2.3); Potassium 3.2 mmol/L (3.5-5.1); Sodium 135 mmol/L (135-145); eGFR 56.48
--- NOTE | 2025-02-17 15:30 | W.PN.UPDATE ---
Update Note
Progress Note Update
Back in to see patient now that he is in the ICU on BiPAP. Minimal urine output despite additional Lasix 40 mg IV at 1330. Case reviewed with RN and remanufacturing technician. Steroids being considered. Possible transfer to tertiary care center.
[2025-02-17] MEDS: ERYTHROMYCIN 0.5% OPHTHALMIC OINTMENT 1 APPLIC RIGHT EYE ×2 (15:33→23:28)
--- NOTE | 2025-02-17 15:41 | PTCARENOTE ---
Dr. Buckley & Dr. Elva Maravilla TT'd if pt coukd go for CT abdomen, prioritizing care. Remains on Bipap, ECHO currently being performed at the bedside. Potassium, BUN/Creat also reported via TT at that time.
[2025-02-17] MEDS: LASIX 80 MG IV (16:33)
[2025-02-17] MEDS: SOLU-MEDROL PF 125 MG IV (16:33)
[2025-02-17] MEDS: KCL 40 MEQ PO (16:34)
[2025-02-17 17:58] LABS: Triglycerides 256 mg/dl (10-149)
[2025-02-17 18:02] LABS: Fibrinogen 989 MG/DL (199-459)
[2025-02-17] MEDS: ERYTHROMYCIN 0.5% OPHTHALMIC OINTMENT RIGHT EYE (19:43)
[2025-02-17] MEDS: HEPARIN 5000 UNITS SC (23:28)
[2025-02-18] VITALS (25 sets, daily range): BP systolic 117–166; BP diastolic 69–123; PULSE 2–102; BMI 31.4
--- NOTE | 2025-02-18 00:48 | PTCARENOTE ---
Late entry: Assumed care of pt at 1900. Pt is drowsy but arousable to his name, oriented x3-4 but slow to answer questions, needs to think about the answers sometimes, forgetful as well. 5/5 muscle strength in all extremities. SR 80s with PVCs on
monitor, SpO2 93% on 15L MFNC. No c/o pain. See nursing shift assessment flowsheet for full physical assessment details. Bed alarm activated.
Midnight: assessment unchanged. Pt has been asleep for the entire shift, still arousable to name. Able to void in urinal. SR with PVCs, HR in 80s. Remains on MFNC at 15LPM.
[2025-02-18 05:47] LABS: Hematocrit 37.5 % (39.0-52.0); Hemoglobin 12.8 g/dL (13.0-18.0); Mean Corp Hgb Conc. 34.1 g/dL (33.0-37.0); Mean Corpuscular Volume 88.0 fL (80.0-94.0); Platelet Count 222 10^3/uL (130-400); Red Cell Dist. Width 14.6 % (11.5-14.5)
[2025-02-18 05:51] LABS: ALT (SGPT) 48 U/L (0-50); AST (SGOT) 76 U/L (17-59); Albumin 2.5 g/dl (3.5-5.0); Alkaline Phosphatase 201 U/L (38-126); Blood Urea Nitrogen 41 mg/dl (9-20); Calcium 9.0 mg/dl (8.4-10.2); Carbon Dioxide 31 mmol/L (22-30); Chloride 104 mmol/L (98-107); Estimated Creatinine Clearance 70 ml/min; Glucose 173 mg/dl (70-99); Potassium 4.0 mmol/L (3.5-5.1); Sodium 138 mmol/L (135-145); Total Protein 5.5 g/dl (6.3-8.2); eGFR > 60.00
[2025-02-18 06:30] LABS: Absolute Neutrophils -Man Diff 27.5 10^3/uL (1.4-6.5); Normal RBC Morphology Yes; Platelets Checked Yes
[2025-02-18 06:31] LABS: Total Cells Counted 100
--- NOTE | 2025-02-18 06:34 | PTCARENOTE ---
0400 assessment unchanged. Pt has been less drowsy the last few hours. Remains on MFNC at 15LPM.
[2025-02-18] MEDS: LASIX 80 MG IV (07:35)
[2025-02-18] MEDS: PROTONIX 40 MG PO (07:35)
--- NOTE | 2025-02-18 07:44 | W.PN.HOSP.TC ---
Addendum entered and electronically signed by Francis Maravilla MD 02/18/25 22:23:
Acute hypoxic respiratory failure, spo2 81% on RA which is secondary to Pulmonary edema, unclear as to cause of pulm edema
Initated on Bilevel NIPPV, now improving on 15L upon my examined
-Started on steroids and with increase dose of lasix of 80mg improved output per Nursing
--Pulm discussed with ID and Rheum, rec to start steroids, unlikely pna/infectious
----Rheum believes this could be potentially Adult stills syndrome with high ferritin, fevers, rash and arthralgias
-Continue to wean o2 as tolerated
-Repeat 2d echo without evidence of WMA/unlikely myocarditis, preserved EF
-Incentive sheryl
-Follow up pulm and card recs
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
- Ferritin and LFTs abnormal, concern for underlying stills disease along with previous high fevers
- Extensive infectious workup unremarkable, viral panel pending that was ordered by ID 02/17
- Started on Solu-Medrol 02/17, subjectively reports feeling better with improving o2 requirments
- Will need outpatient close follow-up with rheumatology service, pulmonary to did consult with rheum that is associated with PMDH, suspects Adult onset still's without worry of HLH/MAS (Macrophage activation syndrome) as H score per Rheum is 40-54%
if develops then will need transfer to tertiary center. STart steroids for now and rec anakinra(Canakinumab) 100mg SQ,
Right eye conjunctivitis
- Topical erythromycin, clinically improving
Small left loculated effusion
- Per pulm small on imaging, no safe window for thoracentesis, high risk of pneumothorax if procedure were to be attempted
- Continue diuresis for now and monitor
Right middle lobe nodule, 7 mm, with Mediastinal adenopathy, 2.4 cm subcarinal lymph node
- Mediastinal lymphadenopathy likely reactive
- Will pursue outpatient CT surveillance, patient will follow-up with pulmonary clinic
Original Note:
Today's Communication/Plan
-
Continue Lasix for fluid overload and steroid to reduce inflammation. Monitor clinical response.
Continue supplemental oxygen as needed, weaning as tolerated.
Continue to follow infectious and rheumatologic workup.
Assessment / Plan
Assessment / Plan
Patient is a 65-year-old male with no significant past medical history before last week who was recently discharged from [facility] on 02/14/2025 after being admitted on 02/11/2025 for fever of unknown origin, pink macular rash on his trunk
and extremities, and arthralgias. During his hospital stay, the patient underwent an extensive infectious workup, which did not reveal the source of infection. The patient was without a fever for over 2 days before discharge, and he was discharged
on empiric doxycycline and ibuprofen for suspected infection or inflammatory disorder. The patient returned to [facility] due to hypoxia and lower extremity swelling bilaterally.
#Acute hypoxemic respiratory failure 2/2 suspected acute congestive heart failure
Patient's vitals on presentation: BP 138/87, HR 116, RR 20, T 98.9, SpO2 89%
Patient presented with shortness of breath, lower extremity edema, lower abdominal edema
Patient developed acute respiratory distress (02/17), necessitating transfer to ICU for BiPAP
WBCs 29.9, relatively stable from recent test
proBNP: 5140
Echocardiogram (02/14): EF 60%. Normal diastolic function. No regional wall motion abnormalities.
Echocardiogram (02/17): No pericardial or pleural effusions. LVEF 50 to 55%. normal LV systolic function. Diastolic function indeterminate.
Continue diuresis with IV Lasix due to fluid overload
Continue empiric steroids to reduce inflammation
Continue supplemental oxygen as needed, with weaning as tolerated
Additional infectious, rheumatological workup pending
- Blood cx: NGTD
Consider further workup with additional cardiac imaging (CT/MRI), endomyocardial biopsy
Cardiology, pulmonology, infectious disease following
#Acute kidney injury
Cr 1.2 this morning, decreased slightly from 1.5 on admission
UA (02/16): RBCs, 2+ vomiting, few bacteria, 1+ occult blood
Avoid nephrotoxic medications, including holding NSAIDs
Nephrology following
#Elevated troponin
Troponins trended: 0.114 > 0.107 > 0.084 > 0.085 > 0.079
Echocardiogram (02/14): EF 60%. Normal diastolic function. No regional wall motion abnormalities.
Echocardiogram (02/17): No pericardial or pleural effusions. LVEF 50 to 55%. normal LV systolic function. Diastolic function indeterminate.
Consider additional cardiac imaging, endomyocardial biopsy if no response to steroids, diuresis
Cardiology following
#Abdominal pain (resolved)
Patient denies any abdominal pain today, including with palpation
CT chest: Per radiologist, no evidence of central PE. Loculated small left pleural effusion. Trace right pleural effusion. Small pericardial effusion.
Relevant lab: T. bili 1.3, AST 76, ALT 48, alk phos 201.
CTAP: Increased small bilateral pleural effusions. Possible atelectasis.
Continue to monitor clinical status
ID following
DVT PPx: SC Lovenox
CODE STATUS: Full
Anticipated Discharge: > 48 hours
Subjective/Interval History
-
Date of Service: February 18, 2025
Patient is seen at the bedside in the ICU on hospital day #3. Nursing reports that the patient is more alert than yesterday. Nursing reports NAEO. Patient is currently on 15 L of mid flow oxygen. Patient reports that his breathing is a little
bit better than yesterday. Specifically, he is able to breathe a little bit deeper, though he does report a pain in his upper chest with deep breathing.
Objective Data
-
Labs:
Laboratory Results
02/18/25
05:16
WBC 29.9 H
Hgb 12.8 L
Hct 37.5 L
Plt Count 222
Sodium 138
Potassium 4.0
Chloride 104
Carbon Dioxide 31 H
BUN 41 H
Creatinine 1.2
Glucose 173 H
Calcium 9.0
Total Bilirubin 1.3
AST 76 H
ALT 48
Alkaline Phosphatase 201 H
Vital Signs:
Vital Signs
Temp Pulse Resp BP Pulse Ox
98.1 F 91 31 125/87 90
02/18/25 03:38 02/18/25 07:00 02/18/25 07:00 02/18/25 07:35 02/18/25 07:00
I&O
02/17/25 02/18/25 02/19/25
06:59 06:59 06:59
Intake Total 240 / 240
Output Total 1150 / 1150 1950 / 1950 350 / 350
Balance -1150 / -1150 -1710 / -1710 -350 / -350
Review of Systems
-
History Source: Patient
Respiratory: Reports Trouble Breathing (Reports he is not currently short of breath sitting in bed on 15 L mid flow oxygen)
Cardiac: Reports Chest Pain (Mild pain in upper chest with deep breathing); Denies Palpitations
Abdomen/GI: Denies Abdominal Pain, Nausea, Vomiting or Diarrhea
Neuro: Denies Headache, Weakness, Numbness, Lightheadedness or Other (Denies neck pain)
Physical Exam
-
General: Well Developed, Well Nourished, No Apparent Distress, Comfortable and Conversant; Negative Respiratory Distress
HEENT: Normocephalic, Atraumatic, Neck Non Tender and Oxygen (Currently on 15 L mid flow)
Respiratory: Clear to Auscultation and Non Labored Respirations; Negative Wheezes, Crackles or Accessory Resp Muscle Use
Cardiac: Regular Rhythm, S1/S2 and Tachycardic (HR in high 90s low 100s while at the bedside); Negative Murmur, Rub or Gallop
GI: Soft, Nontender and Normal Bowel Sounds
Musculoskeletal: No Cyanosis, Edema, Right Lower Extrem (1+ pitting edema, improved from yesterday) and Edema, Left Lower Extrem (1+ pitting edema, improved from yesterday)
Skin: Warm and Dry; Negative Rash
Neuro: AO x 3
Psych: Calm
[2025-02-18] MEDS: NOVOLOG FLEXPEN-LOW RESISTANCE SC (07:46)
[2025-02-18 07:56] LABS: Glucose - Point of Care 143 mg/dl (70-99)
[2025-02-18] MEDS: HEPARIN 5000 UNITS SC ×3 (08:03→23:29)
[2025-02-18] MEDS: SOLU-MEDROL PF 40 MG IV ×2 (08:03→21:14)
[2025-02-18] MEDS: ERYTHROMYCIN 0.5% OPHTHALMIC OINTMENT 1 APPLIC RIGHT EYE ×4 (08:04→21:14)
--- NOTE | 2025-02-18 08:30 | PTCARENOTE ---
Rec'd care of patient at 0700. Patient alert and oriented. MAEx4. NSR/ST on tele. Rate in the 90-100's. +2 edema in b/l LE. Palpable pulses. Pulse ox low 90's on 15L MF. Lung sounds shallow/diminished throughout. Expiratory wheeze auscultated
anteriorly. Crackles 3/4 up posteriorly. Occasional productive cough; norwood sputum. +BS. Appetite good. No BM. Voiding via urinal. 80mg IV Lasix administered by previous RN. Peripheral INT sites capped. Assisted oob to chair at 0815. IS encouraged.
See worklist for full assessment and care.
--- NOTE | 2025-02-18 09:07 | W.PN.ID1 ---
Date of Service
Date of Service: February 18, 2025
Today's Communication
Continue steroid.
Observe closely off abx.
Assessment / Plan
# FUO- suspected autoimmune/inflammatory
# Recent diffuse morbilliform rash ( some small target lesions, small annular rings), Right conjunctivitis resolved (after start of round the clock ibuprofen)
# Acute CHF/volume over load - pulm edema, LE edema
# Hypoxemic resp failure, improving with diuresis
# Troponin leak
# Leukocytosis improved today
-Negative infectious disease work-up of FUO, thus far:
CT chest x 2 no consolidations to suggest pneumonia
CT a/p x 2 negative intra-ab source
TTE x 2 no vegetations
CXR's negative
Blood cx's neg
Rapid Group A strep: negative
Respiratory viral panel PCR negative
Babesia smear negative
Anaplasma, Ehrlichia PCR negative
Lyme screen negative
RMSF IgG and IgM negative
Parvovirus IgG and IgM negative
Syphilis negative
HIV screen negative
- s/p 7 days empiric doxycycline
- Cardiology suspects iatrogenic volume overload over CHF, less likely myocarditis
Coxsackie, echovirus,mycoplasma serologies pending
Anti-streptolysin and DNAse-B ab pending
- Suspect inflammatory/autoimmune source of FUO, recent rash.
Fever recurred yesterday when off ibuprofen
Fever responsive to steroid, quickly resolved on methylprednisolone (d2)
Myalgias/arthralgias also improved today since start of steroid.
Of note ferritin >10,000, CRP >200, ESR 54
Further rheumatology work-up in progress.
Pt has appt with Rheum outpatient.
-> Blood cx's neg to date.
-> DC ceftriaxone and observe closely.
-> trend wbc
Chief Complaint
-: Fever
Subjective / Review of Systems
SOB improved. Myalgias/arthralgias much improved since starting steroid.
Vital Signs / Physical Exam
Vital Signs
Vital Signs
Temp Pulse Resp BP Pulse Ox
97.8 F 90 25 137/87 92
02/18/25 08:02 02/18/25 08:00 02/18/25 08:00 02/18/25 08:00 02/18/25 08:02
Selected Entries
02/17/25
13:10
Temp 102.0 F H
Physical Exam
Constitutional: Comfortable and Non-toxic
Eyes: No Conjunctival Hemorrhage and Sclera Anicteric
Cardiovascular: Regular Rate and S1/S2
Pulmonary: Rales (bases)
Gastrointestinal: Soft, Non Tender, Non Distended and Normal Bowel Sounds
Extremities: Edema (BLE - decreased 1+)
Skin: Negative Rash
Neurological: AO x 3; Negative Meningeal Signs
Psychological: Calm
Objective Data
Lab Data
Lab Results
02/18/25 05:16
02/18/25 05:16
ESR 54 mm/hour (0-20) H 02/16/25 19:57
PT 15.4 Sec (11.4-14.6) H 02/17/25 14:16
INR 1.17 02/17/25 14:16
APTT 24.3 Sec (23.4-35.0) 02/17/25 14:16
Estimated Creat Clear 70 ml/min 02/18/25 05:16
Lactic Acid 1.6 mmol/L (0.7-2.0) 02/17/25 14:16
Total Bilirubin 1.3 mg/dl (0.2-1.3) 02/18/25 05:16
AST 76 U/L (17-59) H 02/18/25 05:16
ALT 48 U/L (0-50) 02/18/25 05:16
Alkaline Phosphatase 201 U/L (38-126) H 02/18/25 05:16
C-Reactive Protein > 270.00 mg/L (0.0-10.00) H 02/16/25 19:57
Most recent labs reviewed.
Micro Results:
02/16/25 20:49 Blood Culture - Preliminary
Blood/Venous No Growth in 24 hours- Final report to follow
02/16/25 20:49 Blood Culture - Preliminary
Blood/Venous No Growth in 24 hours- Final report to follow
02/17/25 08:38 Blood Culture - Pending
Blood/Venous
02/17/25 09:14 Blood Culture - Pending
Blood/Venous
02/16/25 19:57 Influenza Types A & B (BESS) - Final
Nasal Swab Negative for Influenza A & B, NAAT
Negative results must be combined with clinical observations
and patient history.
Nucleic Acid Amplification test (NAAT)performed on the
[employer] NOW platform.
02/16/[address]: No evidence of central pulmonary embolism. There is a likely loculated small left pleural effusion with associated left-sided atelectasis. There is a possible trace right pleural effusion with right-sided atelectasis. There is
suggestion of groundglass opacities and interlobular septal thickening may represent mild edema Small pericardial effusion. 1.9 cm hypodense nodule within the posterior left hemithyroid which a nonemergent thyroid ultrasound is recommended.
02/17/25: CT a/p Increased small bilateral pleural effusions with adjacent airspace opacities favored to represent atelectasis. Colonic diverticulosis. There is apparent mild wall thickening within the colon which are likely secondary to
underdistention.
02/17/25 TTE: Left ventricle is small in size. Normal left ventricular systolic function. Left ventricular ejection fraction is 50 to 55% visually. Mild concentric. left ventricular hypertrophy. Diastolic function indeterminate.
Care Review
Plan reviewed with: Physician (Elva Taylor, [place])
--- NOTE | 2025-02-18 09:08 | W.PN.CARDCBS ---
Today's Communication / Plan
-
Continue diuresis Lasix 40 mg IV daily. Wean oxygen.
Continue to follow inflammatory markers. Continue steroids.
Will add Coreg 3.125 mg twice daily.
No clear evidence of myocarditis at this time. Will review echo's.
Creatinine improving.
Continue workup for inflammatory process.
Repeat proBNP in a.m.
Impression / Plan
-
PCP: None, used to follow with Dr. Damon who is now retired and needs a new PCP
Card: None prior to admission
Rheum: Scheduled to see Dr. Mary Dumont
Impression:
Admitted with acute hypoxic respiratory insufficiency and acute HFpEF 02/16/25
Recent admission for fever of unknown origin, respiratory failure, acute HFpEF and rash 02/10/25 until 02/15/25
given 9 L IVFs for support during febrile illness
Acute HFpEF
Small pericardial effusion on CT chest 02/16/25 that was not seen on echo 02/14/25
Elevated Troponin
Mediastinal adenopathy
Diffuse macular rash
Elevated LFTs
Hypokalemia
Echo 02/14/25: EF 60%, mild conc LVH, normal diastolic function, mild to mod MR, mild to mod TR with PAP 47 mmHg
Echo 02/17/25: EF 50 to 55% with mild LVH, no significant pericardial effusion.
Plan:
-Patient came to the ER 02/16/25 and was admitted with acute hypoxic respiratory failure and CHF, cardiology has been consulted. Patient was just admitted 02/11/25 until 02/15/25 with new onset fever, rash and arthralgias. Patient was seen by ID and
had imaging and labs. Blood cultures without growth. HIV, Hepatitis, parvovirus, Lyme and Rickettsia negative. ANTONI positive, ESR was 42 (now 54), CRP consistently greater than 270 and additional rheum labs pending. Ferritin was elevated at >08288
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
have improved. Patient was seen by Pulm for mediastinal adenopathy and RML lobe nodule, as his oxygenation deteriorated there was concern for CHF and then IVFs were stopped, but prior to that he received 9 L IVFs. Patient was given Lasix 40 mg IV x1
on 02/13/25 and 02/15/25, but was not discharged to home on Lasix even though admission weight was 208 lbs and discharge weight was 216 lbs. Patient continued on doxycycline at home in addition to the ibuprofen, but had ongoing SOB and was hypoxic on
home pulse ox test and so he came to the ER yesterday. pro-BNP was 5140, CT chest showed pulmonary edema and a small left pleural effusion and he was hypoxic and placed on 6 L NC. Patient given Lasix 40 mg IV x1 in the ER and then 40 mg IV daily.
Continues with arthralgias and change in mental status described as fogginess. Patient and deny chest pain. Initial Troponin was 0.114 and trended down thereafter. No acute ischemic changes. CT chest showed a small pericardial effusion that was
not seen on CT chest last admission and also not seen on echo last admission.
- Clinically he is improving. Will continue diuresis with IV Lasix. Start 40 mg IV daily. Creatinine is improved and down to 1.2 today. Weight is down to 206.
-I reviewed his echo. Repeat LVEF remains about 55% with no significant pericardial effusion. CT scan still suggests pleural effusions so we will continue with diuresis
-His troponin is improving and remains mildly abnormal. I suspect this is a nonischemic myocardial injury.? Possibly due to inflammatory process going on.
-He remains on significant oxygen.
-Continue steroids and ceftriaxone.
-With tachycardia will add carvedilol 3.125 mg p.o. twice daily and follow clinically.
-Abnormal LFTs are also improving.
-Would continue to trend inflammatory markers.
- Critical care time 33 minutes
Progress Note - Greens Keeper
Subjective
Date of Service: February 18, 2025
Awake and feeling better. Denies fevers. Breathing is improving. Denies chest pains.
Objective
Labs:
02/18/25 05:16
02/18/25 05:16
Labs
Hgb 12.8 g/dL (13.0-18.0) L 02/18/25 05:16
Hct 37.5 % (39.0-52.0) L 02/18/25 05:16
Plt Count 222 10^3/uL (130-400) 02/18/25 05:16
PT 15.4 Sec (11.4-14.6) H 02/17/25 14:16
INR 1.17 02/17/25 14:16
APTT 24.3 Sec (23.4-35.0) 02/17/25 14:16
Sodium 138 mmol/L (135-145) 02/18/25 05:16
Potassium 4.0 mmol/L (3.5-5.1) 02/18/25 05:16
BUN 41 mg/dl (9-20) H 02/18/25 05:16
Creatinine 1.2 mg/dL (0.7-1.3) 02/18/25 05:16
Glucose 173 mg/dl (70-99) H 02/18/25 05:16
Troponins
02/16/25 02/17/25 02/17/25
19:57 01:27 07:17
Troponin I 0.114 H* 0.107 H* 0.084 H*
02/17/25 02/17/25
12:29 14:16
Troponin I 0.085 H* 0.079 H*
Vital Signs and I&O:
Vital Signs
Temp Pulse Resp BP Pulse Ox
97.8 F 90 25 137/87 92
02/18/25 08:02 02/18/25 08:00 02/18/25 08:00 02/18/25 08:00 02/18/25 08:02
Vital Signs
Temp Pulse Resp BP Pulse Ox
97.8 F 90 25 137/87 92
02/18/25 08:02 02/18/25 08:00 02/18/25 08:00 02/18/25 08:00 02/18/25 08:02
Intake & Output
02/16/25 02/17/25 02/18/25 02/19/25
06:59 06:59 06:59 06:59
Intake Total 240 / 240
Output Total 1150 / 1150 1950 / 1950 350 / 350
Balance -1150 / -1150 -1710 / -1710 -350 / -350
Physical Exam
Physical Exam
GEN: No distress, awake, Ox3
HEENT: supple, anicteric, mmm
LUNGS: dec BS at bases
CV: Reg, S1/S2, 1/6 syst LSB, S4+
ABD: soft, BS+, NT/ND
EXT: trace edema
NEURO: Gross non-focal
SKIN: No rash
[2025-02-18] MEDS: STERILE WATER FOR INJECTION IV (09:43)
[2025-02-18 10:29] LABS: ASO Quantitative 800 IU/ml (<200)
--- NOTE | 2025-02-18 10:56 | W.PN.INTV ---
Addendum entered and electronically signed by Christiano Buckley MD 02/18/25 14:32:
O2 requirement continues to drop, down to 5 ltr Nasal cannula now. Give another dose of Lasix 80 mg.
Ok to transfer out of ICU to telemetry floor
Pulmonary team will continue to follow
Original Note:
Today's Communication / Plan
Recommendations
- Lasix 80 mg IV x 1
- Continue to wean oxygen as tolerated, monitor off BiPAP
- Continue IV steroids, follow-up on cultures
- If oxygen requirement continues to decrease through the day, can be transferred out of ICU
Assessment
-
65-year-old male with recent admission for 5-day history of fevers, 24 hours of diffuse rash, right conjunctivitis, myalgias. CT chest with nodule. Evaluation led to CHF possibility and possible underlying autoimmune condition, placed on lasix and
NSAIDs with plan for OP FU. Discharged 02/15. Returns with worsening SOB, fatigue, malaise. at bedside noting worsening symptoms. Returned to ER with leucocytosis, CT showing loculated effusion and small cardiac effusion, he was
reportedly 81% on RA at home. We are consulted for re-eval.
#1. Acute hypoxic respiratory failure, 81% on RA
- Patient was started on BiPAP on 02/17 with aggressive IV diuresis, significant overnight improvement
- Currently off BiPAP, no respiratory distress on exam, saturating 93% on 15 L supplemental oxygen, comfortably sitting in chair.
- Lasix 80 mg IV x 1 today then start 40 mg IV daily, cardiology service on case
- Repeat echo with preserved ejection fraction
- ? Acute diastolic heart failure versus iatrogenic prior to IV fluids and NSAIDs related fluid retention
#2. Pulmonary edema with suspect Acute CHF
- EF preserved on follow-up echocardiogram
- Continue IV Lasix as ordered
- Off BiPAP now, titrate oxygen supplemental to keep saturations above 92%
#3. Small left loculated effusion
- Fairly small on imaging, no safe window for thoracentesis, high risk of pneumothorax if procedure were to be attempted
- Continue diuresis for now and monitor
#4. Right middle lobe nodule, 7 mm, with Mediastinal adenopathy, 2.4 cm subcarinal lymph node
- Mediastinal lymphadenopathy likely reactive
- Will pursue outpatient CT surveillance, patient will follow-up with pulmonary clinic
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
- Ferritin and LFTs abnormal, concern for underlying stills disease
- Extensive infectious workup unremarkable
- Patient started on Solu-Medrol 02/17, subjectively reports feeling better.
- Will need outpatient close follow-up with rheumatology service
- Currently patient is hemodynamically stable, not requiring any pressors and respiratory status has improved with diuresis, continue current management
#6. Suspected sleep disordered breathing
-Will pursue sleep study as outpatient
#7. Right eye conjunctivitis
- Topical erythromycin, clinically improving
DVT prophylaxis with subcu Lovenox
Critical Care time [01] mins -42- The patient is admitted for acute critical illness for the treatment of vital organ failure and/or prevention of further life-threatening conditions. Total care includes time spent in review of history, physical
exam, medications, hemodynamic/ventilator parameters, laboratory data, imaging and discussion with house staff, pharmacy, respiratory therapy, masonry inspector, and nursing.
Diagnostic Data
Chest X-Ray: 02/13/25- No acute disease of the chest. Mild cardiomegaly. Stable.
CT Scan: CHEST 02/11/25- No CT evidence for an acute pulmonary process. 7 mm and 6 mm solid pulmonary nodules in the right middle lobe along the minor fissure. The [facility] Pulmonary Nodule Advisory Board will be notified. Mild mediastinal
lymphadenopathy, which is nonspecific but clinical correlation is recommended. Bilateral thyroid gland nodules. Recommend a follow-up thyroid ultrasound on a routine outpatient basis for further evaluation.
CT Chest 02/16/25- 1. No evidence of central pulmonary embolism.
2. There is a likely loculated small left pleural effusion with associated left-sided atelectasis. There is a possible trace right pleural effusion with right-sided atelectasis. There is suggestion of groundglass opacities and interlobular septal
thickening may represent mild edema.
3. Small pericardial effusion.
4. 1.9 cm hypodense nodule within the posterior left hemithyroid which a nonemergent thyroid ultrasound is recommended.
Echo: 02/14/25- Normal left ventricular chamber size. Normal left ventricular systolic function. Left ventricular ejection fraction is 60% by Tovar's method of discs. Normal regional wall motion. Mild concentric left ventricular hypertrophy.
Normal diastolic function. Mitral valve opens normally. Mildly thickened mitral valve leaflets. Mild to moderate mitral regurgitation. Indexed LA volume is within normal range (15-34 mL/m2). Tricuspid valve opens normally. Mild to moderate
tricuspid regurgitation. Estimated pulmonary artery pressure of 47 mmHg, assuming a right atrial pressure of 13 mmHg.
There is no evidence of vegetation seen. However if clinical suspicion is high would suggest RD.
Subjective Dataa
Subjective Data
Date of Service:
Date of Service: February 18, 2025
Subjective:
Patient comfortably sitting in chair today in no acute distress.
Review of Systems
Genitourinary: Other (All 14 systems reviewed and negative except as stated above in the history of present illness.)
Objective Data
Data Reviewed
Vital Signs / I&O / Oxygen:
Vital Signs
Temp Pulse Resp BP Pulse Ox
97.8 F 106 30 147/86 94
02/18/25 08:02 02/18/25 10:00 02/18/25 10:00 02/18/25 10:00 02/18/25 10:24
Intake and Output
02/17/25 02/18/25 02/19/25
06:59 06:59 06:59
Intake Total 240 / 240
Output Total 1150 / 1150 1950 / 1950 350 / 350
Balance -1150 / -1150 -1710 / -1710 -350 / -350
SaO2 94
Nasal Cannula flow liters per 10
minute
Physical Exam
General: Comfortable
HEENT: Normocephalic
Cardiovascular: S1-S2 and Peripheral Edema (Resolving)
Respiratory: Crackles (Few basilar inspiratory crackles)
GI: Soft and Non Distended
Neurology: Awake and Alert
Skin: Warm
Labs/Micro/Reports
Lab Data
02/18/25 05:16
02/18/25 05:16
Laboratory Results
02/17/25 02/17/25
13:16 14:16
PT 15.4 H
INR 1.17
APTT 24.3
pH 7.51 H
pCO2 32 L
pO2 80 L
HCO3 25.5
O2 Delivery Level 10
Microbiology
02/17/25 08:38 Blood/Venous Blood Culture - Preliminary
No Growth in 24 hours- Final report to follow
02/17/25 09:14 Blood/Venous Blood Culture - Preliminary
No Growth in 24 hours- Final report to follow
02/16/25 20:49 Blood/Venous Blood Culture - Preliminary
No Growth in 24 hours- Final report to follow
02/16/25 20:49 Blood/Venous Blood Culture - Preliminary
No Growth in 24 hours- Final report to follow
02/16/25 19:57 Nasal Swab Influenza Types A & B (BESS) - Final
Negative for Influenza A & B, NAAT
Negative results must be combined with clinical observations
and patient history.
Nucleic Acid Amplification test (NAAT)performed on the
[employer] platform.
[2025-02-18] MEDS: COREG 3.125 MG PO ×2 (11:32→21:13)
[2025-02-18 12:33] LABS: Glycohemoglobin (HgbA1c) 6.3 % (4.0-5.6)
--- NOTE | 2025-02-18 12:44 | PTCARENOTE ---
Systems reviewed. Patient remains oob in chair. Patient states he feels 'calm'. NSR/ST on tele, rate in the 90-100's. Coreg initiated. +1 edema in b/l LE. O2 weaned to 5L MF. Pulse ox 92-94%. Lung sounds improved from prior assessment. Scattered
crackles 1/2 up posteriorly. Tachypneic with exertion. Occasional productive cough; [place] sputum. +BS. Appetite good. Voiding via urinal. [place] output. Callbell within reach.
[2025-02-18 12:47] LABS: Glucose - Point of Care 258 mg/dl (70-99)
[2025-02-18] MEDS: NOVOLOG FLEXPEN-LOW RESISTANCE 2 UNITS SC (13:49)
[2025-02-18 14:00] LABS: Glucose - Point of Care 209 mg/dl (70-99)
--- NOTE | 2025-02-18 14:59 | PTCARENOTE ---
Patient downgraded to tele level. VSS. Additional dose of IV Lasix ordered per Lining Maker Hand.
--- NOTE | 2025-02-18 15:42 | CM ---
IV/Lasix, IV/Solu-Medrol. O2-5L. Discharge POC: TBD. Awaiting therapy evaluation.
[2025-02-18] MEDS: LASIX 40 MG IV (16:32)
[2025-02-18] MEDS: NOVOLOG FLEXPEN-LOW RESISTANCE 1 UNITS SC (17:54)
[2025-02-18 18:06] LABS: Glucose - Point of Care 172 mg/dl (70-99)
[2025-02-19] VITALS (18 sets, daily range): BP systolic 100–152; BP diastolic 63–94; PULSE 2–81; BMI 31.1
--- NOTE | 2025-02-19 00:33 | PTCARENOTE ---
Assumed care of pt at 1900. Pt is A/O x4, pleasant and cooperative with care. OOB to chair at start of shift. Assessment as documented in nursing shift assessment flowsheet. Pt on 5LNC at start of shift, sats 89-92%, desats to mid 80s with activity,
is tachypneic with FARRELL. SR/ST on monitor 80s-low 100s. Pt requesting to go on bipap overnight, went on at around 2230, 12/ with 10LPM. Pt now resting in bed with eyes closed. Telemetry level of care.
[2025-02-19 06:08] LABS: Hematocrit 40.2 % (39.0-52.0); Hemoglobin 13.6 g/dL (13.0-18.0); Mean Corp Hgb Conc. 33.8 g/dL (33.0-37.0); Mean Corpuscular Volume 88.2 fL (80.0-94.0); Platelet Count 197 10^3/uL (130-400); Red Cell Dist. Width 14.6 % (11.5-14.5)
[2025-02-19 06:15] LABS: ALT (SGPT) 63 U/L (0-50); AST (SGOT) 87 U/L (17-59); Albumin 2.7 g/dl (3.5-5.0); Alkaline Phosphatase 213 U/L (38-126); Blood Urea Nitrogen 54 mg/dl (9-20); Calcium 8.7 mg/dl (8.4-10.2); Carbon Dioxide 29 mmol/L (22-30); Chloride 101 mmol/L (98-107); Estimated Creatinine Clearance 64 ml/min; Glucose 166 mg/dl (70-99); Potassium 4.2 mmol/L (3.5-5.1); Sodium 137 mmol/L (135-145); Total Protein 5.9 g/dl (6.3-8.2); eGFR > 60.00
[2025-02-19] MEDS: PROTONIX 40 MG PO (06:59)
[2025-02-19 07:18] LABS: Nucleated Red Blood Cells % 0.3 % (-)
--- NOTE | 2025-02-19 08:14 | W.PN.CARDCBS ---
Today's Communication / Plan
-
Will increase Lasix back to 80 mg IV daily (received 40 mg this AM, will give another 40 mg now and change daily dose to 80 mg IV daily)
Impression / Plan
-
PCP: None, used to follow with Dr. Damon who is now retired and needs a new PCP
Card: None prior to admission, initially seen by Dr Wu
Rheum: Scheduled to see Dr. Mary Dumont
Impression:
Admitted with acute hypoxic respiratory insufficiency and acute HFpEF 02/16/25
Recent admission for fever of unknown origin, respiratory failure, acute HFpEF and rash 02/10/25 until 02/15/25
given 9 L IVFs for support during febrile illness
Acute HFpEF
Small pericardial effusion on CT chest 02/16/25 that was not seen on echo 02/14/25
Elevated Troponin
Mediastinal adenopathy
Diffuse macular rash
Elevated LFTs
Hypokalemia
Echo 02/14/25: EF 60%, mild conc LVH, normal diastolic function, mild to mod MR, mild to mod TR with PAP 47 mmHg
Echo 02/17/25: EF 50 to 55% with mild LVH, no significant pericardial effusion.
Plan:
-Patient came to the ER 02/16/25 and was admitted with acute hypoxic respiratory failure and CHF, cardiology has been consulted. Patient was just admitted 02/11/25 until 02/15/25 with new onset fever, rash and arthralgias. Patient was seen by ID and
had imaging and labs. Blood cultures without growth. HIV, Hepatitis, parvovirus, Lyme and Rickettsia negative. ANTONI positive, ESR was 42 (now 54), CRP consistently greater than 270 and additional rheum labs pending. Ferritin was elevated at >50258
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
have improved. Patient was seen by Pulm for mediastinal adenopathy and RML lobe nodule, as his oxygenation deteriorated there was concern for CHF and then IVFs were stopped, but prior to that he received 9 L IVFs. Patient was given Lasix 40 mg IV x1
on 02/13/25 and 02/15/25, but was not discharged to home on Lasix even though admission weight was 208 lbs and discharge weight was 216 lbs. Patient continued on doxycycline at home in addition to the ibuprofen, but had ongoing SOB and was hypoxic on
home pulse ox test and so he came to the ER yesterday. pro-BNP was 5140, CT chest showed pulmonary edema and a small left pleural effusion and he was hypoxic and placed on 6 L NC. Patient given Lasix 40 mg IV x1 in the ER and then 40 mg IV daily.
Continues with arthralgias and change in mental status described as fogginess. Patient and deny chest pain. Initial Troponin was 0.114 and trended down thereafter. No acute ischemic changes. CT chest showed a small pericardial effusion that was
not seen on CT chest last admission and also not seen on echo last admission.
Heart failure with preserved ejection fraction very likely related to iatrogenic volume overload.
Clinically had been improving with IV Lasix diuresis. Lasix dosing reduced from 80 mg daily to 40 mg IV daily starting 02/19/25, I/O neg only 150 mls and thia AM with increasing O2 requirements and exam with bibasilar crackles
Will increase Lasix back to 80 mg IV daily (received 40 mg this AM, will give another 40 mg now and change daily dose to 80 mg IV daily)
Follow renal fxn closely.
Note that repeat LVEF remains about 55% with no significant pericardial effusion. CT scan still suggests pleural effusions
Mild troponin abnormality peaking at 0.114 on February 16, 2025, now down to 0.079 on February 17, 2025
This likely represents nonischemic myocardial injury and possibly a component of his ongoing inflammatory process.
No wall motion abnormalities on repeated echocardiograms this admission
No plan for ischemic evaluation at this point
Sinus tachycardia
Heart rates have improved with his overall clinical improvement and also with addition of carvedilol 3.125 mg p.o. twice daily which we will continue.
As of yet unclear definitive diagnosis of his inflammatory disorder.
Has remained on steroids, off antibiotics. Further evaluation and management as per primary service.
- Critical care time 32 minutes
Progress Note - Outreach Rep
Subjective
Date of Service: February 19, 2025
He is having a little bit more difficult time breathing this morning. Tells me that it started overnight and is worsened by this morning.
Objective
Labs:
02/19/25 05:41
02/19/25 05:41
Labs
Hgb 13.6 g/dL (13.0-18.0) 02/19/25 05:41
Hct 40.2 % (39.0-52.0) 02/19/25 05:41
Plt Count 197 10^3/uL (130-400) 02/19/25 05:41
PT 15.4 Sec (11.4-14.6) H 02/17/25 14:16
INR 1.17 02/17/25 14:16
APTT 24.3 Sec (23.4-35.0) 02/17/25 14:16
Sodium 137 mmol/L (135-145) 02/19/25 05:41
Potassium 4.2 mmol/L (3.5-5.1) 02/19/25 05:41
BUN 54 mg/dl (9-20) H 02/19/25 05:41
Creatinine 1.3 mg/dL (0.7-1.3) 02/19/25 05:41
Glucose 166 mg/dl (70-99) H 02/19/25 05:41
Troponins
02/16/25 02/17/25 02/17/25
19:57 01:27 07:17
Troponin I 0.114 H* 0.107 H* 0.084 H*
02/17/25 02/17/25
12:29 14:16
Troponin I 0.085 H* 0.079 H*
Vital Signs and I&O:
Vital Signs
Temp Pulse Resp BP Pulse Ox
99.2 F 89 34 126/91 90
02/18/25 23:34 02/19/25 06:00 02/19/25 06:00 02/19/25 06:00 02/19/25 06:00
Vital Signs
Temp Pulse Resp BP Pulse Ox
99.2 F 89 34 126/91 90
02/18/25 23:34 02/19/25 06:00 02/19/25 06:00 02/19/25 06:00 02/19/25 06:00
Intake & Output
02/17/25 02/18/25 02/19/25 02/20/25
06:59 06:59 06:59 06:59
Intake Total 240 / 240 1919 / 1919
Output Total 1150 / 1150 1950 / 1950 2074
Balance -1150 / -1150 -1710 / -1710 -155 / -155
Physical Exam
Physical Exam
In bed, now on high flow nasal cannula.
Mild respiratory distress.
He is awake and alert. Oriented x 3.
Lungs reduced breath sounds at both bases with some crackles bilateral bases. No wheezing or rhonchi.
On heart exam he is regular normal S1 and S2, no S3 no S4 there is a grade 1/6 apical holosystolic murmur. No rubs
Abdomen soft nontender nondistended with normoactive bowel sounds.
Bilateral lower extremity edema edema, +1
--- NOTE | 2025-02-19 08:25 | W.PN.ID1 ---
Date of Service
Date of Service: February 19, 2025
Today's Communication
Observe off antibiotics.
Assessment / Plan
# FUO- suspected autoimmune/inflammatory
# Recent diffuse morbilliform rash ( some small target lesions, small annular rings), Right conjunctivitis resolved (after start of round the clock ibuprofen)
# Acute CHF/volume over load - pulm edema, LE edema
# Hypoxemic resp failure, improving with diuresis
# Troponin leak
# Leukocytosis improved today
-Negative infectious disease work-up of FUO, thus far:
CT chest x 2 no consolidations to suggest pneumonia
CT a/p x 2 negative intra-ab source
TTE x 2 no vegetations
CXR's negative
Blood cx's neg
Rapid Group A strep: negative
Respiratory viral panel PCR negative
Babesia smear negative
Anaplasma, Ehrlichia PCR negative
Lyme screen negative
RMSF IgG and IgM negative
Parvovirus IgG and IgM negative
Syphilis negative
HIV screen negative
- s/p 7 days empiric doxycycline
- Cardiology suspects iatrogenic volume overload over CHF, less likely myocarditis
Coxsackie, echovirus,mycoplasma serologies pending
Anti-streptolysin positive; DNAse-B ab pending
- Suspect inflammatory/autoimmune source of FUO, recent rash.
Fever recurred yesterday when off ibuprofen
Fever responsive to steroid, quickly resolved on methylprednisolone (d2)
Myalgias/arthralgias also improved today since start of steroid.
Of note ferritin >10,000, CRP >200, ESR 54
Further rheumatology work-up in progress.
Pt has appt with Rheum outpatient.
-> Blood cx's neg to date.
-> Observe closely off ceftriaxone.
-> trend wbc
Chief Complaint
-: Fever
Subjective / Review of Systems
Patient seen and examined. Reports some shortness of breath today.
Review of Systems: No Fever and No Chills
Vital Signs / Physical Exam
Vital Signs
Vital Signs
Temp Pulse Resp BP Pulse Ox
99.2 F 89 34 126/91 90
02/18/25 23:34 02/19/25 06:00 02/19/25 06:00 02/19/25 06:00 02/19/25 06:00
Physical Exam
Constitutional: Comfortable and Non-toxic
Eyes: No Conjunctival Hemorrhage and Sclera Anicteric
Cardiovascular: Regular Rate and S1/S2
Pulmonary: Rales (bases)
Gastrointestinal: Soft, Non Tender, Non Distended and Normal Bowel Sounds
Extremities: Edema (BLE - decreased 1+)
Skin: Negative Rash
Neurological: AO x 3; Negative Meningeal Signs
Psychological: Calm
Objective Data
Lab Data
Lab Results
02/19/25 05:41
02/19/25 05:41
ESR 54 mm/hour (0-20) H 02/16/25 19:57
PT 15.4 Sec (11.4-14.6) H 02/17/25 14:16
INR 1.17 02/17/25 14:16
APTT 24.3 Sec (23.4-35.0) 02/17/25 14:16
Estimated Creat Clear 64 ml/min 02/19/25 05:41
Lactic Acid 1.6 mmol/L (0.7-2.0) 02/17/25 14:16
Total Bilirubin 1.3 mg/dl (0.2-1.3) 02/19/25 05:41
AST 87 U/L (17-59) H 02/19/25 05:41
ALT 63 U/L (0-50) H 02/19/25 05:41
Alkaline Phosphatase 213 U/L (38-126) H 02/19/25 05:41
C-Reactive Protein > 270.00 mg/L (0.0-10.00) H 02/16/25 19:57
Most recent labs reviewed.
Micro Results:
02/16/25 20:49 Blood Culture - Preliminary
Blood/Venous No Growth in 48 hours- Final report to follow
02/16/25 20:49 Blood Culture - Preliminary
Blood/Venous No Growth in 48 hours- Final report to follow
02/17/25 08:38 Blood Culture - Preliminary
Blood/Venous No Growth in 24 hours- Final report to follow
02/17/25 09:14 Blood Culture - Preliminary
Blood/Venous No Growth in 24 hours- Final report to follow
02/16/25 19:57 Influenza Types A & B (BESS) - Final
Nasal Swab Negative for Influenza A & B, NAAT
Negative results must be combined with clinical observations
and patient history.
Nucleic Acid Amplification test (NAAT)performed on the
[employer] platform.
02/16/[address]: No evidence of central pulmonary embolism. There is a likely loculated small left pleural effusion with associated left-sided atelectasis. There is a possible trace right pleural effusion with right-sided atelectasis. There is
suggestion of groundglass opacities and interlobular septal thickening may represent mild edema Small pericardial effusion. 1.9 cm hypodense nodule within the posterior left hemithyroid which a nonemergent thyroid ultrasound is recommended.
02/17/25: CT a/p Increased small bilateral pleural effusions with adjacent airspace opacities favored to represent atelectasis. Colonic diverticulosis. There is apparent mild wall thickening within the colon which are likely secondary to
underdistention.
02/17/25 TTE: Left ventricle is small in size. Normal left ventricular systolic function. Left ventricular ejection fraction is 50 to 55% visually. Mild concentric. left ventricular hypertrophy. Diastolic function indeterminate.
[2025-02-19] MEDS: COREG 3.125 MG PO ×2 (08:31→20:07)
[2025-02-19] MEDS: HEPARIN 5000 UNITS SC ×3 (08:32→23:24)
[2025-02-19] MEDS: SOLU-MEDROL PF 40 MG IV ×2 (08:32→20:07)
[2025-02-19] MEDS: LASIX 40 MG IV ×2 (08:32→09:15)
[2025-02-19] MEDS: ERYTHROMYCIN 0.5% OPHTHALMIC OINTMENT 1 APPLIC RIGHT EYE ×4 (08:33→23:25)
[2025-02-19] MEDS: NOVOLOG FLEXPEN-LOW RESISTANCE SC ×2 (08:37→12:19)
[2025-02-19 08:48] LABS: Glucose - Point of Care 130 mg/dl (70-99)
--- NOTE | 2025-02-19 09:54 | PTCARENOTE ---
Rec'd pt at 0700. Pt sleeping, easily awakens. Tachypneic at rest, pox 87% on 10L midflow, increased to 15L with minimal change. Pt placed on HFNC by resp therapist 55L/100%. pox 92-94%. Lungs with bibasilar rales. +BS, abd soft/nt. Additional 40mg
IV Lasix given for a total of 80mg IV Lasix this am. Vdg leticia urine via urinal.
--- NOTE | 2025-02-19 10:58 | CM ---
Patient seen at bedside in ICU. Patient stated that he would like list of local PCP's for to review. Patient with no concerns at this time. PT/OT assessment may be helpful to confirm discharge needs, watch for home O2 needs. CM will continue to
follow for discharge planning needs.
Plan; Watch for home O2 needs/VN supports pending medical treatment plan
[2025-02-19 11:35] LABS: Glucose - Point of Care 135 mg/dl (70-99)
--- NOTE | 2025-02-19 12:28 | W.PN.INTV ---
Today's Communication / Plan
Recommendations
- Lasix 80 mg IV twice daily
- Wean FiO2 as tolerated
- Follow-up chest x-ray in a.m.
Assessment
-
65-year-old male with recent admission for 5-day history of fevers, 24 hours of diffuse rash, right conjunctivitis, myalgias. CT chest with nodule. Evaluation led to CHF possibility and possible underlying autoimmune condition, placed on lasix and
NSAIDs with plan for OP FU. Discharged 02/15. Returns with worsening SOB, fatigue, malaise. at bedside noting worsening symptoms. Returned to ER with leucocytosis, CT showing loculated effusion and small cardiac effusion, he was
reportedly 81% on RA at home. We are consulted for re-eval.
02/19. Patient back on high flow nasal cannula, 100% FiO2, 55 L, saturating 93%, MAP around 97.
#1. Acute hypoxic respiratory failure, 81% on RA
- Patient was started on BiPAP on 02/17 with aggressive IV diuresis, significant overnight improvement. 02/19, again back on high flow nasal cannula.
- Follow-up chest x-ray shows improving pulmonary edema. On exam patient still looks volume overloaded.
- Switch Lasix to 80 mg IV twice a day. Depending on amount of diuresis noted during the day, will consider addition of metolazone.
- Repeat echo with preserved ejection fraction
- ? Acute diastolic heart failure versus iatrogenic prior to IV fluids and NSAIDs related fluid retention. Cardiology service on case
#2. Pulmonary edema with suspect Acute CHF
- EF preserved on follow-up echocardiogram
- Continue IV Lasix as ordered
- Off BiPAP now, titrate oxygen supplemental to keep saturations above 92%
#3. Small left loculated effusion
- Fairly small on imaging, no safe window for thoracentesis, high risk of pneumothorax if procedure were to be attempted
- Continue diuresis for now and monitor
#4. Right middle lobe nodule, 7 mm, with Mediastinal adenopathy, 2.4 cm subcarinal lymph node
- Mediastinal lymphadenopathy likely reactive
- Will pursue outpatient CT surveillance, patient will follow-up with pulmonary clinic
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
- Ferritin and LFTs abnormal, concern for underlying stills disease
- Extensive infectious workup unremarkable
- Patient started on Solu-Medrol 02/17, subjectively reports feeling better.
- Will need outpatient close follow-up with rheumatology service
- Fever improving since addition of steroids, continue to monitor off antibiotics.
#6. Suspected sleep disordered breathing
-Will pursue sleep study as outpatient
#7. Right eye conjunctivitis
- Topical erythromycin, clinically improving
DVT prophylaxis with subcu Lovenox
Critical Care time [01] mins -45- The patient is admitted for acute critical illness for the treatment of vital organ failure and/or prevention of further life-threatening conditions. Total care includes time spent in review of history, physical
exam, medications, hemodynamic/ventilator parameters, laboratory data, imaging and discussion with house staff, pharmacy, respiratory therapy, ladle builder, and nursing.
Diagnostic Data
Chest X-Ray: 02/13/25- No acute disease of the chest. Mild cardiomegaly. Stable.
CT Scan: CHEST 02/11/25- No CT evidence for an acute pulmonary process. 7 mm and 6 mm solid pulmonary nodules in the right middle lobe along the minor fissure. The [facility] Pulmonary Nodule Advisory Board will be notified. Mild mediastinal
lymphadenopathy, which is nonspecific but clinical correlation is recommended. Bilateral thyroid gland nodules. Recommend a follow-up thyroid ultrasound on a routine outpatient basis for further evaluation.
CT Chest 02/16/25- 1. No evidence of central pulmonary embolism.
2. There is a likely loculated small left pleural effusion with associated left-sided atelectasis. There is a possible trace right pleural effusion with right-sided atelectasis. There is suggestion of groundglass opacities and interlobular septal
thickening may represent mild edema.
3. Small pericardial effusion.
4. 1.9 cm hypodense nodule within the posterior left hemithyroid which a nonemergent thyroid ultrasound is recommended.
Echo: 02/14/25- Normal left ventricular chamber size. Normal left ventricular systolic function. Left ventricular ejection fraction is 60% by Tovar's method of discs. Normal regional wall motion. Mild concentric left ventricular hypertrophy.
Normal diastolic function. Mitral valve opens normally. Mildly thickened mitral valve leaflets. Mild to moderate mitral regurgitation. Indexed LA volume is within normal range (15-34 mL/m2). Tricuspid valve opens normally. Mild to moderate
tricuspid regurgitation. Estimated pulmonary artery pressure of 47 mmHg, assuming a right atrial pressure of 13 mmHg.
There is no evidence of vegetation seen. However if clinical suspicion is high would suggest RD.
Subjective Dataa
Subjective Data
Date of Service:
Date of Service: February 19, 2025
Subjective:
Patient felt more short of breath overnight and was transitioned back to high flow nasal cannula.
Review of Systems
Genitourinary: Other (All 14 systems reviewed and negative except as stated above in the history of present illness.)
Objective Data
Data Reviewed
Vital Signs / I&O / Oxygen:
Vital Signs
Temp Pulse Resp BP Pulse Ox
99.9 F 95 39 152/78 94
02/19/25 11:13 02/19/25 10:15 02/19/25 10:15 02/19/25 10:13 02/19/25 10:15
Intake and Output
02/18/25 02/19/25 02/20/25
06:59 06:59 06:59
Intake Total 240 / 240 1919 / 1919
Output Total 1949 / 1949 1500 / 1500
Balance -1710 / -1710 -155 / -155 -1500 / -1500
SaO2 94
Nasal Cannula flow liters per 55
minute
Physical Exam
General: Comfortable
HEENT: Normocephalic
Cardiovascular: S1-S2 and Peripheral Edema (1-2+ bilaterally)
Respiratory: Crackles (Few basilar inspiratory crackles)
GI: Soft and Non Distended
Neurology: Awake and Alert
Skin: Warm
Labs/Micro/Reports
Lab Data
02/19/25 05:41
02/19/25 05:41
Microbiology
02/17/25 08:38 Blood/Venous Blood Culture - Preliminary
No Growth in 48 hours- Final report to follow
02/17/25 09:14 Blood/Venous Blood Culture - Preliminary
No Growth in 48 hours- Final report to follow
02/16/25 20:49 Blood/Venous Blood Culture - Preliminary
No Growth in 48 hours- Final report to follow
02/16/25 20:49 Blood/Venous Blood Culture - Preliminary
No Growth in 48 hours- Final report to follow
02/16/25 19:57 Nasal Swab Influenza Types A & B (BESS) - Final
Negative for Influenza A & B, NAAT
Negative results must be combined with clinical observations
and patient history.
Nucleic Acid Amplification test (NAAT)performed on the
[employer] platform.
--- NOTE | 2025-02-19 14:10 | W.PN.HOSP.TC ---
Today's Communication/Plan
-
Assessment / Plan
Assessment / Plan
Acute hypoxic respiratory failure, spo2 81% on RA which is secondary to Pulmonary edema, unclear as to cause of pulm edema
Initated on Bilevel NIPPV, now transitioned to HIGFlow
-Started on steroids and with increase dose of lasix of 80mg improved output per Nursing
--Pulm discussed with ID and Rheum, rec to start steroids, unlikely pna/infectious
----Rheum believes this could be potentially Adult stills syndrome with high ferritin, fevers, rash and arthralgias
-Continue to wean o2 as tolerated
-Repeat 2d echo without evidence of WMA/unlikely myocarditis, preserved EF
-Incentive sheryl
-Follow up pulm and card recs
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
- Ferritin and LFTs abnormal, concern for underlying stills disease along with previous high fevers
- Extensive infectious workup unremarkable, viral panel pending that was ordered by ID 02/17
- Started on Solu-Medrol 02/17, subjectively reports feeling better with improving o2 requirments
- Will need outpatient close follow-up with rheumatology service, pulmonary to did consult with rheum that is associated with PMDH, suspects Adult onset still's without worry of HLH/MAS (Macrophage activation syndrome) as H score per Rheum is 40-54%
if develops then will need transfer to tertiary center. STart steroids for now and rec anakinra(Canakinumab) 100mg SQ,
-- Have asked pharmacy to attempt to obtain this medicaiton for Mr. Serrato.
---Brook Serrato is speaking with [employer] as well, she informed me that it is a $21,000.00 medication, will write a script to see if she can get it filled, may need prior Auth, it is the weekend therefore, will be difficult to obtain this way
Right eye conjunctivitis
- Topical erythromycin, clinically improving
Small left loculated effusion
- Per pulm small on imaging, no safe window for thoracentesis, high risk of pneumothorax if procedure were to be attempted
- Continue diuresis for now and monitor
Right middle lobe nodule, 7 mm, with Mediastinal adenopathy, 2.4 cm subcarinal lymph node
- Mediastinal lymphadenopathy likely reactive
- Will pursue outpatient CT surveillance, patient will follow-up with pulmonary clinic
Anticipated Discharge: > 48 hours
Subjective/Interval History
-
Date of Service: February 19, 2025
Seen and examined. at bedside provided update. Reach out to pharmacy to see if they could potentially obtain interleukin 1 inhibitor anakinra/canakinumab
Overnight worsening hypoxemia requiring high flow nasal cannula
Chest x-ray this morning slightly improved
Objective Data
-
Labs:
Laboratory Results
02/19/25
05:41
WBC 36.2 H
Hgb 13.6
Hct 40.2
Plt Count 197
Sodium 137
Potassium 4.2
Chloride 101
Carbon Dioxide 29
BUN 54 H
Creatinine 1.3
Glucose 166 H
Calcium 8.7
Total Bilirubin 1.3
AST 87 H
ALT 63 H
Alkaline Phosphatase 213 H
Vital Signs:
Vital Signs
Temp Pulse Resp BP Pulse Ox
99.9 F 92 34 118/83 93
02/19/25 11:13 02/19/25 13:30 02/19/25 13:30 02/19/25 13:00 02/19/25 13:30
I&O
02/18/25 02/19/25 02/20/25
06:59 06:59 06:59
Intake Total 240 / 240 1919 / 192
Output Total 1949 / 1949 1500 / 1500
Balance -1710 / -1710 -155 / -155 -1500 / -1500
Physical Exam
-
General: Well Developed, Well Nourished and Respiratory Distress (Improving respiratory distress on high flow appears comfortable now)
HEENT: Normocephalic, Atraumatic and Other (Right eye conjunctivitis improving)
Respiratory: Crackles (Bibasilar)
Cardiac: Regular Rhythm
GI: Soft, Nontender and Nondistended
Skin: Warm
Neuro: Awake, Alert, Oriented and AO x 3
Psych: Calm
--- NOTE | 2025-02-19 15:00 | PTCARENOTE ---
Pt OOB to recliner chair with assist 1. Remains on HFNC 55L/100%. Desats to 86% with activity, slow recovery period. Family at bedside.
[2025-02-19] MEDS: NOVOLOG FLEXPEN-LOW RESISTANCE 1 UNITS SC (15:05)
[2025-02-19 15:15] LABS: Glucose - Point of Care 156 mg/dl (70-99)
[2025-02-19] MEDS: LASIX 80 MG IV (16:09)
--- NOTE | 2025-02-19 17:19 | PTCARENOTE ---
Pt back to bed at this time with min assist of 1, did not desaturate on transfer. pox 92-94%.
--- NOTE | 2025-02-19 19:29 | PTCARENOTE ---
Assumed care of pt. approx. 1900.
Normocephalic, rash/lesion noted in Nasojugal grove extending to [place] area of right side appreciated.
Remains on HHF, tachypnea noted but tolerating sp02 91-93.
Normothermic, normotensive. NSR. w.o ectopy noted.
[2025-02-19] MEDS: TYLENOL 650 MG PO (23:24)
--- NOTE | 2025-02-19 23:27 | PTCARENOTE ---
Addendum entered by Blaine Sheridan RN 02/20/25 01:11:
Follow up temp 101.7 (PO) ICU QUYEN notified of repeat.
Original Note:
Notified by PCT of temp 102.5 (PO) previously normothermic.
Tylenol given --> ICU [facility] notified.
[2025-02-20] VITALS (23 sets, daily range): BP systolic 112–144; BP diastolic 72–104; BMI 31.0
[2025-02-20 03:22] LABS: Hematocrit 35.5 % (39.0-52.0); Hemoglobin 12.2 g/dL (13.0-18.0); Mean Corp Hgb Conc. 34.4 g/dL (33.0-37.0); Mean Corpuscular Volume 86.8 fL (80.0-94.0); Platelet Count 182 10^3/uL (130-400); Red Cell Dist. Width 14.1 % (11.5-14.5)
--- NOTE | 2025-02-20 03:27 | PTCARENOTE ---
No change in assessment.
[2025-02-20 03:38] LABS: Blood Urea Nitrogen 59 mg/dl (9-20); Calcium 8.2 mg/dl (8.4-10.2); Carbon Dioxide 32 mmol/L (22-30); Chloride 101 mmol/L (98-107); Estimated Creatinine Clearance 70 ml/min; Glucose 189 mg/dl (70-99); Magnesium 2.5 mg/dl (1.6-2.3); Potassium 4.0 mmol/L (3.5-5.1); Sodium 136 mmol/L (135-145); eGFR > 60.00
--- NOTE | 2025-02-20 05:16 | PTCARENOTE ---
Addendum entered by Blaine Sheridan RN 02/20/25 05:39:
RT bedside, replaced Nasal prongs. NRB removed. Satting 90-92%. ICU [facility] updated.
Original Note:
Pt. desaturating sp02 88-90. NRB placed on top of HHF 55L/100%.
RT notified and ICU QU[facility] aware.
[2025-02-20] MEDS: LASIX 80 MG IV ×2 (07:33→16:17)
[2025-02-20] MEDS: HEPARIN 5000 UNITS SC ×2 (07:35→16:17)
[2025-02-20] MEDS: SOLU-MEDROL PF 40 MG IV (07:35)
[2025-02-20] MEDS: COREG 3.125 MG PO ×2 (07:37→21:23)
[2025-02-20] MEDS: PROTONIX 40 MG PO (07:37)
[2025-02-20] MEDS: NOVOLOG FLEXPEN-LOW RESISTANCE 300 UNITS SC (07:38)
[2025-02-20] MEDS: ERYTHROMYCIN 0.5% OPHTHALMIC OINTMENT 1 APPLIC RIGHT EYE ×4 (07:38→21:23)
[2025-02-20 07:42] LABS: Glucose - Point of Care 240 mg/dl (70-99)
--- NOTE | 2025-02-20 08:10 | W.PN.ID1 ---
Date of Service
Date of Service: February 20, 2025
Today's Communication
Observe off antibiotics.
Assessment / Plan
# FUO- suspected autoimmune/inflammatory (?Adult Onset Stills Disease)
# Recent diffuse morbilliform rash ( some small target lesions, small annular rings), Right conjunctivitis resolved (after start of round the clock ibuprofen)
# Acute CHF/volume over load - pulm edema, LE edema
# Hypoxemic resp failure, improving with diuresis
# Troponin leak
# Leukocytosis improved today
-Negative infectious disease work-up of FUO, thus far:
CT chest x 2 no consolidations to suggest pneumonia
CT a/p x 2 negative intra-ab source
TTE x 2 no vegetations
CXR's negative
Blood cx's neg
Rapid Group A strep: negative
Respiratory viral panel PCR negative
Babesia smear negative
Anaplasma, Ehrlichia PCR negative
Lyme screen negative
RMSF IgG and IgM negative
Parvovirus IgG and IgM negative
Syphilis negative
HIV screen negative
- s/p 7 days empiric doxycycline
- Cardiology suspects iatrogenic volume overload over CHF, less likely myocarditis
Coxsackie, echovirus,mycoplasma serologies pending
Anti-streptolysin: positive; DNAse-B ab: pending
- Suspect inflammatory/autoimmune source of FUO, recent rash.
Fever recurred yesterday when off ibuprofen
Fever responsive to steroid, quickly resolved on methylprednisolone (d2)
Myalgias/arthralgias also improved today since start of steroid.
Of note ferritin >10,000, CRP >200, ESR 54
Further rheumatology work-up in progress.
Pt has appt with Rheum outpatient.
-> Blood cx's neg to date.
-> Observe closely off ceftriaxone.
-> trend wbc
Chief Complaint
-: Fever
Subjective / Review of Systems
Patient seen and examined. Reports ongoing shortness of breath. Now on high flow O2.
Review of Systems: Fever, No Chills and No Cough
Vital Signs / Physical Exam
Vital Signs
Vital Signs
Temp Pulse Resp BP Pulse Ox
98.6 F 88 32 127/72 90
02/20/25 07:32 02/20/25 07:30 02/20/25 07:30 02/20/25 07:00 02/20/25 07:54
Physical Exam
Constitutional: Comfortable and Non-toxic
Cardiovascular: Regular Rate and S1/S2; Negative S3/S4
Pulmonary: Rales (bases)
Gastrointestinal: Soft, Non Tender, Non Distended and Normal Bowel Sounds
Extremities: Edema (BLE - decreased 1+)
Skin: Negative Rash
Neurological: AO x 3; Negative Meningeal Signs
Psychological: Calm
Objective Data
Lab Data
Lab Results
02/20/25 02:56
02/20/25 02:56
ESR 54 mm/hour (0-20) H 02/16/25 19:57
PT 15.4 Sec (11.4-14.6) H 02/17/25 14:16
INR 1.17 02/17/25 14:16
APTT 24.3 Sec (23.4-35.0) 02/17/25 14:16
Estimated Creat Clear 70 ml/min 02/20/25 02:56
Lactic Acid 1.6 mmol/L (0.7-2.0) 02/17/25 14:16
Total Bilirubin 1.3 mg/dl (0.2-1.3) 02/19/25 05:41
AST 87 U/L (17-59) H 02/19/25 05:41
ALT 63 U/L (0-50) H 02/19/25 05:41
Alkaline Phosphatase 213 U/L (38-126) H 02/19/25 05:41
C-Reactive Protein > 270.00 mg/L (0.0-10.00) H 02/16/25 19:57
Most recent labs reviewed.
Micro Results:
02/16/25 20:49 Blood Culture - Preliminary
Blood/Venous No Growth in 72 hours- Final report to follow
02/16/25 20:49 Blood Culture - Preliminary
Blood/Venous No Growth in 72 hours- Final report to follow
02/17/25 08:38 Blood Culture - Preliminary
Blood/Venous No Growth in 48 hours- Final report to follow
02/17/25 09:14 Blood Culture - Preliminary
Blood/Venous No Growth in 48 hours- Final report to follow
02/16/25 19:57 Influenza Types A & B (BESS) - Final
Nasal Swab Negative for Influenza A & B, NAAT
Negative results must be combined with clinical observations
and patient history.
Nucleic Acid Amplification test (NAAT)performed on the
[employer] NOW platform.
02/16/[address]: No evidence of central pulmonary embolism. There is a likely loculated small left pleural effusion with associated left-sided atelectasis. There is a possible trace right pleural effusion with right-sided atelectasis. There is
suggestion of groundglass opacities and interlobular septal thickening may represent mild edema Small pericardial effusion. 1.9 cm hypodense nodule within the posterior left hemithyroid which a nonemergent thyroid ultrasound is recommended.
02/17/25: CT a/p Increased small bilateral pleural effusions with adjacent airspace opacities favored to represent atelectasis. Colonic diverticulosis. There is apparent mild wall thickening within the colon which are likely secondary to
underdistention.
02/17/25 TTE: Left ventricle is small in size. Normal left ventricular systolic function. Left ventricular ejection fraction is 50 to 55% visually. Mild concentric. left ventricular hypertrophy. Diastolic function indeterminate.
Care Review
Plan reviewed with: Physician (Critical Care)
--- NOTE | 2025-02-20 09:21 | W.PN.INTV ---
Addendum entered and electronically signed by Chrsitiano Buckley MD 02/20/25 20:15:
D/w Rheumatology service
- Trial of 3 days of Solumedrol 1 gm daily x 3 days
- Hematology consult
- RHC in AM to evaluate cardiogenic vs non-cardiogenic pulmonary edema with respiratory failure.
Original Note:
Today's Communication / Plan
Recommendations
- Follow-up chest x-ray and ABG in a.m.
- Might need right heart catheterization, await further cardiology service recommendations
Assessment
-
65-year-old male with recent admission for 5-day history of fevers, 24 hours of diffuse rash, right conjunctivitis, myalgias. CT chest with nodule. Evaluation led to CHF possibility and possible underlying autoimmune condition, placed on lasix and
NSAIDs with plan for OP FU. Discharged 02/15. Returns with worsening SOB, fatigue, malaise. at bedside noting worsening symptoms. Returned to ER with leucocytosis, CT showing loculated effusion and small cardiac effusion, he was
reportedly 81% on RA at home. We are consulted for re-eval.
02/20. Patient continues to be on high flow nasal cannula, 100% FiO2, MAP around 100, saturating around 92%.
#1. Acute hypoxic respiratory failure, 81% on RA, due to pulmonary edema
- Patient was started on BiPAP on 02/17 with aggressive IV diuresis, significant overnight improvement. 02/19, again back on high flow nasal cannula, continues to need high FiO2
- Follow-up chest x-ray shows improving pulmonary edema. BNP down from 5000 down to 1050. Overall edema is resolving, patient is -3 L net over last 24 hours.
- Continue Lasix at 80 mg IV twice daily
- Repeat echo with preserved ejection fraction
- ? Acute diastolic heart failure versus iatrogenic prior to IV fluids and NSAIDs related fluid retention. Cardiology service on case
- Considering persistent high FiO2 requirement despite aggressive diuresis, likely will need right heart cath for further evaluation for any underlying pulmonary hypertension. Discussed with cardiology service
#2. Pulmonary edema with suspect Acute CHF
- EF preserved on follow-up echocardiogram
- Continue IV Lasix as ordered
- Off BiPAP now, titrate oxygen supplemental to keep saturations above 92%
- ?RHC
#3. Small left loculated effusion
- Fairly small on imaging, no safe window for thoracentesis, high risk of pneumothorax if procedure were to be attempted
- Continue diuresis for now and monitor
#4. Right middle lobe nodule, 7 mm, with Mediastinal adenopathy, 2.4 cm subcarinal lymph node
- Mediastinal lymphadenopathy likely reactive
- Will pursue outpatient CT surveillance, patient will follow-up with pulmonary clinic
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
- Ferritin and LFTs abnormal, concern for underlying stills disease
- Extensive infectious workup unremarkable
- Patient started on Solu-Medrol 02/17, subjectively reports feeling better.
- Patient has outpatient follow-up scheduled with rheumatology service.
- Fever improving since addition of steroids, continue to monitor off antibiotics
- Consider transfer to tertiary center
#6. Suspected sleep disordered breathing
-Will pursue sleep study as outpatient
#7. Right eye conjunctivitis
- Topical erythromycin, clinically improving
DVT prophylaxis with subcu Lovenox
Critical Care time [01] mins -42- The patient is admitted for acute critical illness for the treatment of vital organ failure and/or prevention of further life-threatening conditions. Total care includes time spent in review of history, physical
exam, medications, hemodynamic/ventilator parameters, laboratory data, imaging and discussion with house staff, pharmacy, respiratory therapy, glass worker, and nursing.
Diagnostic Data
Chest X-Ray: 02/13/25- No acute disease of the chest. Mild cardiomegaly. Stable.
CT Scan: CHEST 02/11/25- No CT evidence for an acute pulmonary process. 7 mm and 6 mm solid pulmonary nodules in the right middle lobe along the minor fissure. The [facility] Pulmonary Nodule Advisory Board will be notified. Mild mediastinal
lymphadenopathy, which is nonspecific but clinical correlation is recommended. Bilateral thyroid gland nodules. Recommend a follow-up thyroid ultrasound on a routine outpatient basis for further evaluation.
CT Chest 02/16/25- 1. No evidence of central pulmonary embolism.
2. There is a likely loculated small left pleural effusion with associated left-sided atelectasis. There is a possible trace right pleural effusion with right-sided atelectasis. There is suggestion of groundglass opacities and interlobular septal
thickening may represent mild edema.
3. Small pericardial effusion.
4. 1.9 cm hypodense nodule within the posterior left hemithyroid which a nonemergent thyroid ultrasound is recommended.
Echo: 02/14/25- Normal left ventricular chamber size. Normal left ventricular systolic function. Left ventricular ejection fraction is 60% by Tovar's method of discs. Normal regional wall motion. Mild concentric left ventricular hypertrophy.
Normal diastolic function. Mitral valve opens normally. Mildly thickened mitral valve leaflets. Mild to moderate mitral regurgitation. Indexed LA volume is within normal range (15-34 mL/m2). Tricuspid valve opens normally. Mild to moderate
tricuspid regurgitation. Estimated pulmonary artery pressure of 47 mmHg, assuming a right atrial pressure of 13 mmHg.
There is no evidence of vegetation seen. However if clinical suspicion is high would suggest RD.
Subjective Dataa
Subjective Data
Date of Service:
Date of Service: February 20, 2025
Subjective:
Patient comfortably sitting in bed in no acute distress, currently on high flow nasal cannula.
Review of Systems
Genitourinary: Other (All 14 systems reviewed and negative except as stated above in the history of present illness. Denies any cough this morning.)
Objective Data
Data Reviewed
Vital Signs / I&O / Oxygen:
Vital Signs
Temp Pulse Resp BP Pulse Ox
98.6 F 88 32 127/72 90
02/20/25 07:32 02/20/25 07:30 02/20/25 07:30 02/20/25 07:00 02/20/25 07:54
Intake and Output
0702/20/25 02/21/25
06:59 06:59 06:59
Intake Total 1919 150 / 150
Output Total 2074 3175 / 317 950 / 950
Balance -155 / -155 -3025 / -3025 -950 / -950
SaO2 90
Nasal Cannula flow liters per 55
minute
Physical Exam
General: Comfortable
HEENT: Normocephalic
Cardiovascular: S1-S2 and Peripheral Edema (Improving, 1+ bilaterally)
Respiratory: Crackles (Few basilar inspiratory crackles)
GI: Soft and Non Distended
Neurology: Awake and Alert
Skin: Warm
Labs/Micro/Reports
Lab Data
02/20/25 02:56
02/20/25 02:56
Microbiology
02/16/25 20:49 Blood/Venous Blood Culture - Preliminary
No Growth in 72 hours- Final report to follow
02/16/25 20:49 Blood/Venous Blood Culture - Preliminary
No Growth in 72 hours- Final report to follow
02/17/25 08:38 Blood/Venous Blood Culture - Preliminary
No Growth in 48 hours- Final report to follow
02/17/25 09:14 Blood/Venous Blood Culture - Preliminary
No Growth in 48 hours- Final report to follow
--- NOTE | 2025-02-20 10:14 | W.PN.CARDCBS ---
Today's Communication / Plan
-
Continue diuresis
Right heart cath tomorrow to help in assessment of cardiogenic versus noncardiogenic pulmonary edema
Impression / Plan
-
PCP: None, used to follow with Dr. Damon who is now retired and needs a new PCP
Card: None prior to admission, initially seen by Dr Wu
Rheum: Scheduled to see Dr. Mary Dumont
Impression:
Admitted with acute hypoxic respiratory insufficiency and acute HFpEF 02/16/25
Recent admission for fever of unknown origin, respiratory failure, acute HFpEF and rash 02/10/25 until 02/15/25
given 9 L IVFs for support during febrile illness
Acute HFpEF
Small pericardial effusion on CT chest 02/16/25 that was not seen on echo 02/14/25
Elevated Troponin
Mediastinal adenopathy
Diffuse macular rash
Elevated LFTs
Hypokalemia
Echo 02/14/25: EF 60%, mild conc LVH, normal diastolic function, mild to mod MR, mild to mod TR with PAP 47 mmHg
Echo 02/17/25: EF 50 to 55% with mild LVH, no significant pericardial effusion.
Plan:
-Patient came to the ER 02/16/25 and was admitted with acute hypoxic respiratory failure and CHF, cardiology has been consulted. Patient was just admitted 02/11/25 until 02/15/25 with new onset fever, rash and arthralgias. Patient was seen by ID and
had imaging and labs. Blood cultures without growth. HIV, Hepatitis, parvovirus, Lyme and Rickettsia negative. ANTONI positive, ESR was 42 (now 54), CRP consistently greater than 270 and additional rheum labs pending. Ferritin was elevated at >09813
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
have improved. Patient was seen by Pulm for mediastinal adenopathy and RML lobe nodule, as his oxygenation deteriorated there was concern for CHF and then IVFs were stopped, but prior to that he received 9 L IVFs. Patient was given Lasix 40 mg IV x1
on 02/13/25 and 02/15/25, but was not discharged to home on Lasix even though admission weight was 208 lbs and discharge weight was 216 lbs. Patient continued on doxycycline at home in addition to the ibuprofen, but had ongoing SOB and was hypoxic on
home pulse ox test and so he came to the ER yesterday. pro-BNP was 5140, CT chest showed pulmonary edema and a small left pleural effusion and he was hypoxic and placed on 6 L NC. Patient given Lasix 40 mg IV x1 in the ER and then 40 mg IV daily.
Continues with arthralgias and change in mental status described as fogginess. Patient and deny chest pain. Initial Troponin was 0.114 and trended down thereafter. No acute ischemic changes. CT chest showed a small pericardial effusion that was
not seen on CT chest last admission and also not seen on echo last admission.
Heart failure with preserved ejection fraction very likely related to iatrogenic volume overload.
Clinically had been improving with IV Lasix diuresis. Lasix dosing reduced from 80 mg daily to 40 mg IV daily starting 02/19/25, I/O neg only 150 mls and thia AM with increasing O2 requirements and exam with bibasilar crackles
Increased Lasix back to 80 mg IV daily on 02/19/25
Fluid balance -3200 mL overnight
Chest x-ray essentially unchanged with prominent pulmonary interstitium
Increasing O2 requirements over the past 24 hours
Right heart catheterization from Friday may be useful to help determine cardiogenic versus noncardiogenic pulmonary edema
Discussed with his other physicians, given uncertainty of his diagnosis (possibly of adult onset Stills dz) he may be best served at a tertiary care center
Currently on methylprednisolone.
Note that repeat LVEF remains about 55% with no significant pericardial effusion. CT scan still suggests pleural effusions
Mild troponin abnormality peaking at 0.114 on February 16, 2025, now down to 0.079 on February 17, 2025
This likely represents nonischemic myocardial injury and possibly a component of his ongoing inflammatory process.
No wall motion abnormalities on repeated echocardiograms this admission
No plan for ischemic evaluation at this point
Sinus tachycardia
Heart rates have improved with his overall clinical improvement and also with addition of carvedilol 3.125 mg p.o. twice daily which we will continue.
As of yet unclear definitive diagnosis of his inflammatory disorder.
Has remained on steroids, off antibiotics. Further evaluation and management as per primary service.
- Critical care time 31 minutes
Progress Note - Sequencing Machine Operator
Subjective
Date of Service: February 20, 2025
He remains on high flow oxygen and appears more fatigued this morning. He denies chest pain.
Objective
Labs:
02/20/25 02:56
02/20/25 02:56
Labs
Hgb 12.2 g/dL (13.0-18.0) L 02/20/25 02:56
Hct 35.5 % (39.0-52.0) L 02/20/25 02:56
Plt Count 182 10^3/uL (130-400) 02/20/25 02:56
PT 15.4 Sec (11.4-14.6) H 02/17/25 14:16
INR 1.17 02/17/25 14:16
APTT 24.3 Sec (23.4-35.0) 02/17/25 14:16
Sodium 136 mmol/L (135-145) 02/20/25 02:56
Potassium 4.0 mmol/L (3.5-5.1) 02/20/25 02:56
BUN 59 mg/dl (9-20) H 02/20/25 02:56
Creatinine 1.2 mg/dL (0.7-1.3) 02/20/25 02:56
Glucose 189 mg/dl (70-99) H 02/20/25 02:56
Troponins
02/17/25 02/17/25
12:29 14:16
Troponin I 0.085 H* 0.079 H*
Vital Signs and I&O:
Vital Signs
Temp Pulse Resp BP Pulse Ox
98.6 F 88 32 127/72 90
02/20/25 07:32 02/20/25 07:30 02/20/25 07:30 02/20/25 07:00 02/20/25 07:54
Vital Signs
Temp Pulse Resp BP Pulse Ox
98.6 F 88 32 127/72 90
02/20/25 07:32 02/20/25 07:30 02/20/25 07:30 02/20/25 07:00 02/20/25 07:54
Intake & Output
02/18/25 02/19/25 02/20/25 02/21/25
06:59 06:59 06:59 06:59
Intake Total 240 / 240 1920 / 1920 150 / 150
Output Total 1950 / 1950 2074 / 2074 3175 / 3175 1250 / 1250
Balance -1710 / -1710 -155 / -155 -3025 / -3025 -1250 / -1250
Physical Exam
Physical Exam
In bed, now on high flow nasal cannula.
Mild respiratory distress.
He is awake and alert. Oriented x 3.
Lungs reduced breath sounds at both bases with some crackles bilateral bases. No wheezing or rhonchi.
On heart exam he is regular normal S1 and S2, no S3 no S4 there is a grade 1/6 apical holosystolic murmur. No rubs
Abdomen soft nontender nondistended with normoactive bowel sounds.
Bilateral lower extremity edema edema, +1
--- NOTE | 2025-02-20 10:27 | PTCARENOTE ---
Rec'd pt at 0700. Pt AAOx3. Monitor SR. Lungs bibasilar rales, pox 94% on HFNC 55L/100%. +FARRELL. Pt c/o sinus congestion, took HFNC off briefly to blow his nose, pox dropped to 78%. Pt asking if he can use his nettipot to clear his sinuses, explained
to pt that it is not safe to take his oxygen off d/t his high O2 requirements at this time.
[2025-02-20] MEDS: NOVOLOG FLEXPEN-LOW RESISTANCE 1 UNITS SC (12:00)
[2025-02-20 12:11] LABS: Glucose - Point of Care 155 mg/dl (70-99)
--- NOTE | 2025-02-20 12:14 | PTCARENOTE ---
No change in assessment. at bedside, updated by RN and Dr. Maravilla
--- NOTE | 2025-02-20 12:59 | W.PN.HOSP.TC ---
Addendum entered and electronically signed by Francis Maravilla MD 02/21/25 01:59:
Labs that were requested by Rheum partially returned with ferritin pending. these labs were sent without ferritin were sent to Rheum electronics lead in the evening with the rec to start 1g of methylpred/pulse dose steroids for 3days for which pulmonary/icu
initiated in the evening.
hematology consulted and awaiting there recs sienna about hlh/mas
Addendum entered and electronically signed by Francis Maravilla MD 02/20/25 17:01:
Per oncall Rheum via TT (Dr. Samir Gutierrez)
- daily ferriting, TG, ESR, CRP, LF
- hem consult for recs on if developing hlh/mas per rheum
- would like to see what labs are today if no significant changes then consider pulsing steroids
- if unable to get anakinra then can try tocilizumab (but it is more immunosuppressive and takes longer to work per rheum.
Original Note:
Today's Communication/Plan
-
Assessment / Plan
Assessment / Plan
Acute hypoxic respiratory failure, spo2 81% on RA which is secondary to Pulmonary edema, unclear as to cause of pulm edema
Initated on Bilevel NIPPV, now transitioned to HIGFlow
-Started on steroids and with increase dose of lasix of 80mg improved output per Nursing
--Pulm discussed with ID and Rheum, rec to start steroids, unlikely pna/infectious
----Rheum believes this could be potentially Adult stills syndrome with high ferritin, fevers, rash and arthralgias
-Continue to wean o2 as tolerated
-Repeat 2d echo without evidence of WMA/unlikely myocarditis, preserved EF
-Incentive sheryl
-Follow up pulm and card recs
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
- Ferritin and LFTs abnormal, concern for underlying stills disease along with previous high fevers
- Extensive infectious workup unremarkable, viral panel pending that was ordered by ID 02/17
- Started on Solu-Medrol 02/17, subjectively reports feeling better with improving o2 requirments
- Will need outpatient close follow-up with rheumatology service, pulmonary to did consult with rheum that is associated with [facility], suspects Adult onset still's without worry of HLH/MAS (Macrophage activation syndrome) as H score per Rheum is 40-54%
if develops then will need transfer to tertiary center. STart steroids for now and rec anakinra(Canakinumab) 100mg SQ,
-- Have asked pharmacy to attempt to obtain this medicaiton for Mr. Serrato.
---Brook Serrato is speaking with [facility] as well, she informed me that it is a $21,000.00 medication, will write a script to see if she can get it filled, may need prior Auth, it is the weekend therefore, will be difficult to obtain this way
Right eye conjunctivitis
- Topical erythromycin, clinically improving
Small left loculated effusion
- Per pulm small on imaging, no safe window for thoracentesis, high risk of pneumothorax if procedure were to be attempted
- Continue diuresis for now and monitor
Right middle lobe nodule, 7 mm, with Mediastinal adenopathy, 2.4 cm subcarinal lymph node
- Mediastinal lymphadenopathy likely reactive
- Will pursue outpatient CT surveillance, patient will follow-up with pulmonary clinic
Yesterday had a lengthy conversation with the his , Brook. I informed her that I would try and assist in getting him this interleukin-1 inhibitor as recommended by rheumatology. Rheumatology also did state that if we are unable to get it for
him inpatient then he can receive it as outpatient.
The interleukin-1 inhibitor anakinra/Ilaris Per Brook is a $21,000 medication. I spoke with our pharmacy at [facility]. Stated we did not have this medication on formulary. [facility] does not have this medication on formulary. It is currently
being used at the [facility] as an restricted medication for inpatient use with patients with gout and ordered by oncology. I even went as far as writing out a prescription for anakinra 100 mg subcutaneously daily. Unfortunately I am not at
outdoor education teacher I do not know what the short and long-term adverse effects are that I verbalizes to Brook. Additionally I am not sure about duration of use of this medication.
Today on 02/20 I provided Roxy an update with everything I found out from our pharmacy. I informed her current plan is continue diuretics. Continue steroids. Monitor off of antibiotics. Likely requires a right heart catheterization. I informed
her I am not a box person in the best person to review this procedure would be with a box person who would be performing the procedure. She asked me how long this procedure would take I told her I am not sure but likely 10 to 20 minutes could
be longer. I informed her right heart catheterization would help to tell us if this is cardiogenic pulmonary edema or noncardiogenic pulmonary edema. If it is cardiogenic pulmonary edema then we can increase diuretics if it noncardiogenic
pulmonary edema then increase steroids. I also informed her in the setting of rheumatologic conditions when it is a flare and the mainstay of treatment is to provide steroids. Will however she states that we need to get him his interleukin-1
inhibitor now and asking if we could transfer to [facility] or to [place]. They reinforced that unfortunately [facility] does not use this interleukin-1 inhibitor for AOSD. Pharmacy unable to order it because not part of formulary. I did write a
prescription but again I am not sure about short and automated manufacturing instructor adverse effects this medication in duration though a prescription was provided to family.
I did tell Brook at this time he is little bit too tenuous for transfer as he is requiring high flow, soon as he comes off of high flow he desaturates very quickly. If transfer was needed then he would likely be placed on a breathing machine/life
support. She verbalized understanding of everything I said over the phone. I also informed her to touch base with the photographic machine operator.
Anticipated Discharge: > 48 hours
Subjective/Interval History
-
Date of Service: February 20, 2025
Seen and examined. No new complaints. No acute overnight events.
Remains on high flow oxygen. Has had 3 L output
States he feels a little bit better however he continues to easily desaturate when off of high flow
Objective Data
-
Labs:
Laboratory Results
02/20/25
02:56
WBC 38.0 H
Hgb 12.2 L
Hct 35.5 L
Plt Count 182
Sodium 136
Potassium 4.0
Chloride 101
Carbon Dioxide 32 H
BUN 59 H
Creatinine 1.2
Glucose 189 H
Calcium 8.2 L
Vital Signs:
Vital Signs
Temp Pulse Resp BP Pulse Ox
99.7 F 93 30 124/85 91
02/20/25 11:02 02/20/25 12:45 02/20/25 12:45 02/20/25 12:00 02/20/25 12:45
I&O
02/19/25 02/20/25 02/21/25
06:59 06:59 06:59
Intake Total 1919 150 / 150
Output Total 2074 3175 / 317 1500 / 1500
Balance -155 / -155 -3025 / -3025 -1500 / -1500
--- NOTE | 2025-02-20 15:25 | PTCARENOTE ---
Pt OOB to recliner chair with min assist of 1. Encouraged pt to use incentive spirometry, pt getting 1250-1500ml, demonstrated use correctly. Assessment unchanged.
--- NOTE | 2025-02-20 15:57 | CHAP ---
Mr. Serrato was sitting in the chair, in good spirits. Emotional and spiritual support provided, along with a prayer blanket.
[2025-02-20] MEDS: NOVOLOG FLEXPEN-LOW RESISTANCE SC (16:23)
[2025-02-20 16:34] LABS: Glucose - Point of Care 140 mg/dl (70-99)
[2025-02-20 16:45] LABS: Fibrinogen 834 MG/DL (199-459)
[2025-02-20 16:46] LABS: ALT (SGPT) 76 U/L (0-50); AST (SGOT) 78 U/L (17-59); Albumin 2.8 g/dl (3.5-5.0); Alkaline Phosphatase 198 U/L (38-126); Total Protein 6.7 g/dl (6.3-8.2); Triglycerides 211 mg/dl (10-149)
[2025-02-20 17:03] LABS: C-Reactive Protein > 270.00 mg/L (0.0-10.00)
[2025-02-20 18:54] LABS: Ferritin > 10000.0 ng/ml (17.9-464.0)
[2025-02-20] MEDS: SOLU-MEDROL PF IV (20:24)
[2025-02-20] MEDS: SOLU-MEDROL 258 MG IV (21:23)
[2025-02-21] VITALS (23 sets, daily range): BP systolic 95–126; BP diastolic 47–97; BMI 30.9; BMI 30.6
--- NOTE | 2025-02-21 00:25 | PTCARENOTE ---
See assessment flowsheet for details.
Hemodynamically stable, Remains on 55L/100%.
[2025-02-21] MEDS: HEPARIN 5000 UNITS SC ×3 (00:45→15:06)
[2025-02-21 02:28] LABS: B.E. 12.8 mmol/L; HCO3 36.8 mmol/L (21-28); O2 Saturation % 96.4 % (94-98); PCO2 43 mmHg (35-48); PO2 72 mmHg (83-108)
[2025-02-21 02:41] LABS: Fibrinogen 716 MG/DL (199-459)
[2025-02-21 02:45] LABS: Hematocrit 35.9 % (39.0-52.0); Hemoglobin 12.3 g/dL (13.0-18.0); Mean Corp Hgb Conc. 34.3 g/dL (33.0-37.0); Mean Corpuscular Volume 87.3 fL (80.0-94.0); Platelet Count 171 10^3/uL (130-400); Red Cell Dist. Width 13.9 % (11.5-14.5)
[2025-02-21 02:54] LABS: ALT (SGPT) 73 U/L (0-50); AST (SGOT) 78 U/L (17-59); Albumin 2.4 g/dl (3.5-5.0); Alkaline Phosphatase 190 U/L (38-126); Blood Urea Nitrogen 54 mg/dl (9-20); Calcium 8.1 mg/dl (8.4-10.2); Carbon Dioxide 32 mmol/L (22-30); Chloride 95 mmol/L (98-107); Estimated Creatinine Clearance 76 ml/min; Glucose 208 mg/dl (70-99); Potassium 3.9 mmol/L (3.5-5.1); Sodium 133 mmol/L (135-145); Total Protein 5.8 g/dl (6.3-8.2); Triglycerides 202 mg/dl (10-149); eGFR > 60.00
[2025-02-21 03:12] LABS: C-Reactive Protein 242.60 mg/L (0.0-10.00)
[2025-02-21 03:51] LABS: Nucleated Red Blood Cells % 0 % (-)
--- NOTE | 2025-02-21 03:59 | PTCARENOTE ---
No change in assessment.
Lab results relayed to ICU QUYEN.
[2025-02-21 05:10] LABS: Ferritin > 10000.0 ng/ml (17.9-464.0)
[2025-02-21 07:36] LABS: Glucose - Point of Care 196 mg/dl (70-99)
[2025-02-21 08:00] LABS: CCP Antibody IgG/IgA 6 Units (0-19)
[2025-02-21 08:01] LABS: Glomerular Base Membrane Ab 0 AU/mL (0-19); SSA 52 (Ro)(ENA) Ab, IgG 4 AU/mL (0-40); SSA 60 (Ro)(ENA) Ab, IgG 0 AU/mL (0-40); SSB (La)(ENA) Ab, IgG 0 AU/mL (0-40); Serine Protease-3, IgG 0 AU/mL (0-19); ds-DNA Ab, IgG Reflex To Titer 22 IU (0-24)
--- NOTE | 2025-02-21 08:20 | W.PN.INTV ---
Today's Communication / Plan
Recommendations
- Continue pulse dose steroids
- Continue trending LFTs, platelet count + fibrinogen level
- Recommend transfer to tertiary care center due to unavailability of rheumatology service here at [place], given concern for stills disease with inflammatory infiltrates
- Follow-up RHC today � if no evidence of pulmonary edema then stop diuresis
- Continue ICU level of care given significantly elevated oxygen requirements with low threshold to intubate
Assessment
-
65-year-old male with recent admission for 5-day history of fevers, 24 hours of diffuse rash, right conjunctivitis, myalgias. CT chest with nodule. Evaluation led to CHF possibility and possible underlying autoimmune condition, placed on lasix and
NSAIDs with plan for OP FU. Discharged 02/15. Returns with worsening SOB, fatigue, malaise. at bedside noting worsening symptoms. Returned to ER with leucocytosis, CT showing loculated effusion and small cardiac effusion, he was
reportedly 81% on RA at home. We are consulted for re-eval.
#1. Acute hypoxic respiratory failure, 81% on RA, due to pulmonary edema (suspected non-cardiogenic)
- Patient was started on BiPAP on 02/17 with aggressive IV diuresis, significant overnight improvement. 02/19, again back on high flow nasal cannula, continues to need high FiO2
- Follow-up chest x-ray shows improving pulmonary edema. BNP down from 5000 down to 1050. Overall edema is resolving, patient is -3 L net over last 24 hours.
- Continue Lasix at 80 mg IV twice daily
- Repeat echo with preserved ejection fraction
- Patient going for right heart cath today
- CXR today shows improved aeration in the right base, and similar retrocardiac opacification
- Patient is s/p ceftriaxone; low threshold to resume antibiotics given his rising WBC, however this is likely due to steroids
- Blood cultures have remained negative to date
#2. Pulmonary edema with suspected Acute CHF
- EF preserved on follow-up echocardiogram
- Continue IV Lasix as ordered
- Off BiPAP now, titrate oxygen supplemental to keep saturations above 92%
- Right heart cath planned for today; if PCWP is low then would recommend stopping diuresis
#3. Small left loculated effusion
- Fairly small on imaging, no safe window for thoracentesis, high risk of pneumothorax if procedure were to be attempted
- Continue diuresis for now and monitor
#4. Right middle lobe nodule, 7 mm, with Mediastinal adenopathy, 2.4 cm subcarinal lymph node
- Mediastinal lymphadenopathy likely reactive
- Will pursue outpatient CT surveillance, patient will follow-up with pulmonary clinic
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
- Ferritin and LFTs abnormal, concern for underlying Stills disease
- Extensive infectious workup unremarkable including respiratory viral panel
- Patient started on Solu-Medrol 02/17, subjectively reports feeling better.
- Patient has outpatient follow-up scheduled with rheumatology service.
- Fever improving since addition of steroids, continue to monitor off antibiotics
- Started pulse dose steroids on 02/20
- Consider transfer to tertiary center given presence of rheumatology service
#6. Suspected sleep disordered breathing
-Will pursue sleep study as outpatient
#7. Right eye conjunctivitis
- Topical erythromycin, clinically improving
DVT prophylaxis with subcu Lovenox
Recommend transfer to tertiary care center where rheumatology service can follow along given concern for inflammatory pneumonitis with suspected stills disease; do not suspect MAS as fibrinogen is >360, and curbside discussion by Dr. Buckley with
rheumatology also did not feel that there was macrophage activation syndrome ongoing. However, would still be better served with him at a tertiary care center where they can consider other immunomodulatory medications like anakinra
Critical care statement: A total of 42 minutes of critical care time was provided for this patient today. This includes management of unstable vital signs, evaluation of the patient at bedside, reviewing the patient�s pertinent medical records
including radiographs, microbiology, laboratory evaluations, and��discussion with primary team, consultants, pharmacy, nutrition, physical therapy, case management, charge nurse, critical care nursing, and respiratory therapy.
Diagnostic Data
Chest X-Ray: 02/13/25- No acute disease of the chest. Mild cardiomegaly. Stable.
CT Scan: CHEST 02/11/25- No CT evidence for an acute pulmonary process. 7 mm and 6 mm solid pulmonary nodules in the right middle lobe along the minor fissure. The [facility] Pulmonary Nodule Advisory Board will be notified. Mild mediastinal
lymphadenopathy, which is nonspecific but clinical correlation is recommended. Bilateral thyroid gland nodules. Recommend a follow-up thyroid ultrasound on a routine outpatient basis for further evaluation.
CT Chest 02/16/25- 1. No evidence of central pulmonary embolism.
2. There is a likely loculated small left pleural effusion with associated left-sided atelectasis. There is a possible trace right pleural effusion with right-sided atelectasis. There is suggestion of groundglass opacities and interlobular septal
thickening may represent mild edema.
3. Small pericardial effusion.
4. 1.9 cm hypodense nodule within the posterior left hemithyroid which a nonemergent thyroid ultrasound is recommended.
Echo: 02/14/25- Normal left ventricular chamber size. Normal left ventricular systolic function. Left ventricular ejection fraction is 60% by Tovar's method of discs. Normal regional wall motion. Mild concentric left ventricular hypertrophy.
Normal diastolic function. Mitral valve opens normally. Mildly thickened mitral valve leaflets. Mild to moderate mitral regurgitation. Indexed LA volume is within normal range (15-34 mL/m2). Tricuspid valve opens normally. Mild to moderate
tricuspid regurgitation. Estimated pulmonary artery pressure of 47 mmHg, assuming a right atrial pressure of 13 mmHg.
There is no evidence of vegetation seen. However if clinical suspicion is high would suggest RD.
Subjective Dataa
Subjective Data
Date of Service:
Date of Service: February 21, 2025
Chief Complaint: [employer] Follow Up
Subjective:
Pt seen and evaluated this AM. Remains on HFNC at 100%, 50L/min. Saturating 97%, heart rate 86 and BP 95/78. Patient feels well, has nasal congestion. Patient's brother, Yann, present at bedside.
Review of Systems
General: Other (Negative unless mentioned above)
Objective Data
Data Reviewed
Vital Signs / I&O / Oxygen:
Vital Signs
Temp Pulse Resp BP Pulse Ox
97.8 F 79 22 128/79 94
02/21/25 07:17 02/21/25 09:10 02/21/25 07:00 02/21/25 09:10 02/21/25 07:58
Intake and Output
02/20/25 02/21/25 02/22/25
06:59 06:59 06:59
Intake Total 150 / 150 770 / 770
Output Total 3175 / 3175 3400 / 3400
Balance -3025 / -3025 -2630 / -2630
SaO2 94
Nasal Cannula flow liters per 50
minute
Physical Exam
General: Respiratory Distress (negative), Comfortable, Chills (negative) and Sweats (negative)
HEENT: Normocephalic and Anicteric
Cardiovascular: S1-S2, Rub (negative) and Peripheral Edema (+1 left lower extremity pitting edema, no edema on right lower extremity)
Respiratory: Wheeze (negative), Crackles (Bilaterally), Rhonchi (negative), Non-Labored Respirations and Stridor (negative)
GI: Soft, Non Distended, Non Tender and Normal Bowel Sounds
Neurology: Awake, Alert, Oriented and Tremors (negative)
Skin: Warm, Dry, Cyanosis (negative) and Jaundice (negative)
Labs/Micro/Reports
Lab Data
02/21/25 02:14
02/21/25 02:14
Laboratory Results
02/21/25
02:14
pH 7.54 H
pCO2 43
pO2 72 L
HCO3 36.8 H
O2 Delivery Level
Microbiology
02/17/25 09:14 Blood/Venous Blood Culture - Preliminary
No Growth in 4 days- Final report to follow
02/16/25 20:49 Blood/Venous Blood Culture - Preliminary
No Growth in 4 days- Final report to follow
02/16/25 20:49 Blood/Venous Blood Culture - Preliminary
No Growth in 4 days- Final report to follow
02/17/25 08:38 Blood/Venous Blood Culture - Preliminary
No Growth in 72 hours- Final report to follow
[2025-02-21] MEDS: COREG 3.125 MG PO ×2 (09:10→21:09)
[2025-02-21] MEDS: PROTONIX 40 MG PO (09:10)
[2025-02-21] MEDS: ERYTHROMYCIN 0.5% OPHTHALMIC OINTMENT 1 APPLIC RIGHT EYE ×4 (09:11→21:10)
[2025-02-21] MEDS: LASIX 80 MG IV ×2 (09:11→15:05)
[2025-02-21] MEDS: NOVOLOG FLEXPEN-LOW RESISTANCE 1 UNITS SC (09:12)
[2025-02-21] MEDS: TYLENOL 650 MG PO (09:15)
--- NOTE | 2025-02-21 10:00 | PTCARENOTE ---
Pt rec'd this am from night RN at 07:15 on HFNC 55L/100% with sats in low 90s.. VSS on telemetry, pt AOx3. Lungs with crackles bilaterally. Discussed restricting fluid intake and need for diuresis. Pt verbalized understanding. Meds administered as
documented in MAR, w/ PRN Tylenol administered for 3/10 pain when taking deep breaths. Pt reports that he is pulling 1500 on IS. Pt fully washed with CHG wipes, face washed and hair shampooed, teeth were already brushed. Assisted oob to chair at
10:00 with minimal help required. No desaturation with activity noted. Plan discussed at length with attending Dr. Dias and residents. Pt for RHC for diagnostic purposes this afternoon, confirmed pt is ok to eat breakfast and then maintain NPO
status afterward. Pt updated and verbalized understanding. Call fernandez in reach, pt voiding in urinal PRN and is now eating breakfast.
--- NOTE | 2025-02-21 10:02 | W.PN.ID1 ---
Date of Service
Date of Service: February 21, 2025
Today's Communication
Start cefepime 2g IVq8h to cover for suspected PNA
Assessment / Plan
# Suspect pneumonia -LLL
# FUO- suspected autoimmune/inflammatory (?Adult Onset Stills Disease)
# Recent diffuse morbilliform rash ( some small target lesions, small annular rings), Right conjunctivitis resolved (after start of round the clock ibuprofen)
# Acute CHF/volume over load - pulm edema, LE edema
# Hypoxemic resp failure
# Troponin leak
# Leukocytosis trending up (on steroid)
-Negative infectious disease work-up of FUO, thus far:
CT chest x 2 no consolidations to suggest pneumonia
CT a/p x 2 negative intra-ab source
TTE x 2 no vegetations
CXR's negative
Blood cx's neg
Rapid Group A strep: negative
Respiratory viral panel PCR negative
Babesia smear negative
Anaplasma, Ehrlichia PCR negative
Lyme screen negative
RMSF IgG and IgM negative
Parvovirus IgG and IgM negative
Syphilis negative
HIV screen negative
- s/p 7 days empiric doxycycline
- Cardiology suspects iatrogenic volume overload over CHF, less likely myocarditis
Coxsackie, echovirus,mycoplasma serologies pending
Anti-streptolysin: positive; DNAse-B ab: negative
For RHC
- Suspect inflammatory/autoimmune source of FUO, recent rash.
Fever recurred yesterday when off ibuprofen
Fever responsive to steroid, resolved on methylprednisolone (d2)
Myalgias/arthralgias also improved today since start of steroid.
Of note ferritin >10,000, CRP >200, ESR 54
Further rheumatology work-up in progress.
-> Blood cx's neg to date.
-> Start cefepime 2g IVq8h to cover for suspected PNA
-> Follow WBC, temps, O2 status
Chief Complaint
-: Fever and Leukocytosis
Subjective / Review of Systems
+ pleuritic SOB.
Arthralgias/myalgias improving.
Vital Signs / Physical Exam
Vital Signs
Vital Signs
Temp Pulse Resp BP Pulse Ox
97.8 F 79 22 128/79 94
02/21/25 07:17 02/21/25 09:10 02/21/25 07:00 02/21/25 09:10 02/21/25 07:58
Physical Exam
Constitutional: Acutely Ill
Eyes: No Conjunctival Hemorrhage and Sclera Anicteric
Cardiovascular: Regular Rate and S1/S2
Pulmonary: Rales (left base)
Gastrointestinal: Soft, Non Tender, Non Distended and Normal Bowel Sounds
Genito-Urinary: Negative CVA Tenderness
Extremities: Negative Edema
Musculoskeletal: Negative Joint Swelling or Joint Effusion
Skin: Negative Rash
Neurological: AO x 3
Objective Data
Lab Data
Lab Results
02/21/25 02:14
02/21/25 02:14
ESR 54 mm/hour (0-20) H 02/21/25 02:14
PT 15.4 Sec (11.4-14.6) H 02/17/25 14:16
INR 1.17 02/17/25 14:16
APTT 24.3 Sec (23.4-35.0) 02/17/25 14:16
Estimated Creat Clear 76 ml/min 02/21/25 02:14
Lactic Acid 1.6 mmol/L (0.7-2.0) 02/17/25 14:16
Total Bilirubin 1.6 mg/dl (0.2-1.3) H 02/21/25 02:14
AST 78 U/L (17-59) H 02/21/25 02:14
ALT 73 U/L (0-50) H 02/21/25 02:14
Alkaline Phosphatase 190 U/L (38-126) H 02/21/25 02:14
C-Reactive Protein 242.60 mg/L (0.0-10.00) H 02/21/25 02:14
Most recent labs reviewed.
Micro Results:
02/17/25 09:14 Blood Culture - Preliminary
Blood/Venous No Growth in 4 days- Final report to follow
02/16/25 20:49 Blood Culture - Preliminary
Blood/Venous No Growth in 4 days- Final report to follow
02/16/25 20:49 Blood Culture - Preliminary
Blood/Venous No Growth in 4 days- Final report to follow
02/17/25 08:38 Blood Culture - Preliminary
Blood/Venous No Growth in 72 hours- Final report to follow
02/16/25 19:57 Influenza Types A & B (BESS) - Final
Nasal Swab Negative for Influenza A & B, NAAT
Negative results must be combined with clinical observations
and patient history.
Nucleic Acid Amplification test (NAAT)performed on the
[employer] platform.
02/16/[address]: No evidence of central pulmonary embolism. There is a likely loculated small left pleural effusion with associated left-sided atelectasis. There is a possible trace right pleural effusion with right-sided atelectasis. There is
suggestion of groundglass opacities and interlobular septal thickening may represent mild edema Small pericardial effusion. 1.9 cm hypodense nodule within the posterior left hemithyroid which a nonemergent thyroid ultrasound is recommended.
02/17/25: CT a/p Increased small bilateral pleural effusions with adjacent airspace opacities favored to represent atelectasis. Colonic diverticulosis. There is apparent mild wall thickening within the colon which are likely secondary to
underdistention.
02/17/25 TTE: Left ventricle is small in size. Normal left ventricular systolic function. Left ventricular ejection fraction is 50 to 55% visually. Mild concentric. left ventricular hypertrophy. Diastolic function indeterminate.
[2025-02-21] MEDS: MAXIPIME 2000 MG IV ×2 (10:57→17:22)
[2025-02-21] MEDS: STERILE WATER FOR INJECTION 10 ML IV ×2 (10:57→17:22)
[2025-02-21 11:52] LABS: Rheumatoid Agglutinin Less Than 10 IU (<10 IU)
[2025-02-21] MEDS: NOVOLOG FLEXPEN SC (12:09)
[2025-02-21 12:18] LABS: Glucose - Point of Care 310 mg/dl (70-99)
[2025-02-21 12:36] LABS: Leptospira Ab, IHA Negative
--- NOTE | 2025-02-21 12:43 | CON.ONC ---
Consultation
-
Date Consultation Performed: 02/21/25
Performing Provider: Tiffanie Greenberg
Impression
Impression
Acute hypoxic respiratory failure
Adult onset Still's disease
- high ferritin, fevers, rash and arthralgias
- Started on Solu-Medrol 02/17, subjectively reports feeling better
- Will need outpatient close follow-up with rheumatology service
Plan
Plan
Consulted for concern of HLH/MAS
Patient being transferred to [facility] for further management
Would recommend consideration of bone marrow biopsy for definitive r/o of HLH
Patient History
History of Present Illness
Patient is a 65 year old male with no significant PMH who presents to ED on 02/16/2025 complaining of 5 days of fevers, myalgias and malaise.
Patient intitally admitted on 02/10/2025. In the ED patient was found to have significantly elevated ferritin, fevers without signs of infection, arthralgia, transaminitis and neurtophilic leukocytosis accompanied with macular confluent rash,
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 Patient started on motrin 600 mg TID and a PPI prophylaxis. Patient noted to be symptomatically improving with ibuprofen. Patient was discharged and encouraged to follow-up with rheumatology
and his primary care physician to further investigate his condition.
On 02/16/2025 family brought patient back due to low O2 sats in 80s on room air and increased lower extremity swelling. Rheumatology recommended starting on anakinra. Started on Solu-Medrol 02/17.
Hematology has been consulted for recommendations about hemophagocytic lymphohistiocytosis (HLH) and Macrophage Activation Syndrome (MAS).
Today patient seen in his chair with his on the phone. Patient is being transferred to [facility] for further management.
Past-Medical/Surgical History
Reports none
Patient Medication
�Medication �Instructions �Recorded �Confirmed �Last Taken �Type
ibuprofen 600 mg tablet 600 mg PO TID Anti-inflammatory 5 02/15/25 02/16/25 02/16/25 Rx
days #15 tabs
doxycycline hyclate 100 mg capsule 100 mg PO BID Infection 02/16/25 02/16/25 02/16/25 History
turmeric 1 gummy PO DAILYPRN PRN allergies 02/16/25 02/16/25 Unknown History
Active Medications
Generic Name Dose Route Start Last Admin
Trade Name Freq PRN Reason Stop Dose Admin
Acetaminophen 650 mg 02/17/25 08:57 02/21/25 09:15
Acetaminophen 325 Mg Tablet PO 03/17/25 08:56 650 mg
Q6HPRN PRN Administration
mild pain/ fever>100.5F
Carvedilol 3.125 mg 02/18/25 10:00 02/21/25 09:10
Carvedilol 3.125 Mg Tablet PO 03/18/25 09:59 3.125 mg
BID CHRISTY Administration
Cefepime HCl 2,000 mg 02/21/25 10:00 02/21/25 10:57
Cefepime Hcl 2,000 Mg/12.5 Ml Vial IV 2,000 mg
Q8H CHRISTY Administration
Dextrose 12.5 grams 02/21/25 12:00
Dextrose 50% (0.5 Grams/Ml) 50 Ml Syringe IV 03/21/25 11:59
[id number] PRN
hypoglycemia
Protocol
Erythromycin 0 applic 02/17/25 14:20 02/21/25 09:11
Erythromycin 0.5% (Ophthalmic Ointment) 1 Gram Tube RIGHT EYE 02/27/25 14:19 1 applic
QID CHRISTY Administration
Furosemide 80 mg 02/19/25 16:00 02/21/25 09:11
Furosemide 100 Mg (10 Mg/Ml) 10 Ml Vial IV 03/19/25 15:59 80 mg
BID AT 0800,1600 CHRISTY Administration
Glucagon 1 mg 02/21/25 12:00
Glucagon 1 Mg Vial IM 03/21/25 11:59
PRN PRN
hypoglycemia - no IV access
Protocol
Heparin Sodium 5,000 units 02/18/25 00:00 02/21/25 09:11
Heparin 5,000 Units/Ml 1 Ml Vial SC 03/18/25 00:00 5,000 units
Q8 CHRISTY Administration
Methylprednisolone Sodium 258 mls @ 258 mls/hr 02/20/25 21:00 02/20/25 21:23
Succinate 1,000 mg/ Sodium IV 02/23/25 20:59 258 mls
Chloride Q24H CHRISTY Administration
Insulin Aspart 0 units 02/21/25 11:30
Insulin Aspart Moderate Resistance 300 Units/3 Ml Pen.Injctr SC 03/21/25 11:29
AC CHRISTY
Protocol
Insulin Aspart 2 units 02/21/25 11:30 02/21/25 12:09
Insulin Aspart (Novolog) 100 Units/Ml 3 Ml Flexpen SC 03/21/25 11:29 Not Given
AC CHRISTY
Pantoprazole Sodium 40 mg 02/17/25 07:00 02/21/25 09:10
Pantoprazole 40 Mg Delayed Release Tablet PO 03/17/25 06:59 40 mg
DAILY AT 0700 CHRISTY Administration
Sodium Chloride 0 flush 02/17/25 02:00
Sodium Chloride 0.9% (Flush) Syringe IV 03/17/25 01:59
PER PROTOCOL CHRISTY
Sterile Water 10 ml 02/21/25 10:00 02/21/25 10:57
Sterile Water For Injection 10 Ml Vial IV 03/21/25 09:59 10 ml
Q8H CHRISTY Administration
Review of Systems
-
History Source: Patient
Constitutional: Reports Fever and Chills
Respiratory: Reports Trouble Breathing
Cardiac: Reports No Symptoms
GI: Reports No Symptoms
Physical Exam
-
General: Well Developed, No Apparent Distress and Other (Remains on high flow oxygen)
Psych: Calm and Intact Judgement/Insight
Labs
Lab Results
WBC 44.3 10^3/uL (4.8-10.8) H* 02/21/25 02:14
RBC 4.11 10^6/uL (4.70-6.10) L 02/21/25 02:14
Hgb 12.3 g/dL (13.0-18.0) L 02/21/25 02:14
Hct 35.9 % (39.0-52.0) L 02/21/25 02:14
MCV 87.3 fL (80.0-94.0) 02/21/25 02:14
MCH 29.9 pg (27.0-31.0) 02/21/25 02:14
MCHC 34.3 g/dL (33.0-37.0) 02/21/25 02:14
RDW 13.9 % (11.5-14.5) 02/21/25 02:14
Plt Count 171 10^3/uL (130-400) 02/21/25 02:14
MPV 11.4 fL (7.4-10.4) H 02/21/25 02:14
Abs Immat Gran (auto) 1.1 10^3/uL (0-0.05) H 02/21/25 02:14
Absolute Neuts (auto) 41.8 10^3/uL (1.4-6.5) H 02/21/25 02:14
Absolute Lymphs (auto) 0.9 10^3/uL (1.2-3.4) L 02/21/25 02:14
Absolute Monos (auto) 0.4 10^3/uL (0.1-0.6) 02/21/25 02:14
Absolute Eos (auto) 0.0 10^3/uL (0-0.7) 02/21/25 02:14
Absolute Basos (auto) 0.0 10^3/uL (0-0.2) 02/21/25 02:14
Immature Gran % 2.6 % (0-0.5) H 02/21/25 02:14
Neutrophils % 94.5 % (42.2-75.2) H 02/21/25 02:14
Lymphocytes % 2.0 % (20.5-51.1) L 02/21/25 02:14
Monocytes % 0.9 % (1.7-9.3) L 02/21/25 02:14
Eosinophils % 0.0 % (0-6) 02/21/25 02:14
Basophils % 0.0 % (0-2) 02/21/25 02:14
Creatinine 1.1 mg/dL (0.7-1.3) 02/21/25 02:14
Vital Signs
Vital Signs
Temp Pulse Resp BP Pulse Ox
98.1 F 88 28 95/78 95
02/21/25 11:30 02/21/25 10:12 02/21/25 10:12 02/21/25 10:12 02/21/25 11:31
[2025-02-21 13:02] LABS: Mycoplasma pneumoniae-IgM 0.28 U/L (<=0.76)
[2025-02-21] MEDS: NOVOLOG FLEXPEN-MODERATE RESISTANCE 7 UNITS SC (13:03)
--- NOTE | 2025-02-21 13:24 | W.PN.HOSP.TC ---
Addendum entered and electronically signed by Amauri Dias MD 02/21/25 16:02:
Seen and examined by me independently in collaboration with the medical reception.
Lab data and imaging data reviewed.
Addendum as below :
Patient feels okay without any shortness of breath but requiring 100% FiO2 on high flow nasal cannula. Denies any further pleuritic chest pain. He does not feel any worse but not much improved. No fever or chills. Denies any nausea or vomiting.
Denies any dizziness.
No acute respiratory distress noted. Tachypnea noted. Saturating 97%. Blood pressure stable. Chest sounds clear to me.
Clinical concern of adult onset stills disease and now with acute hypoxic respiratory failure with imaging raising concern for pulmonary edema. I suspect clinical ARDS which will be a concern of macrophage activation issue with adult onset stills
disease. Await right heart cath today to differentiate between noncardiogenic and cardiogenic pulmonary edema and if suggest the former would benefit interleukin inhibitors. Currently on steroids. Discussed with rheumatology who recommends
interleukin inhibitors but unable to do a consult. Will consider transfer to [facility] for further management.
Discussed with director of midwifery/staff midwife
Discussed with cardiology
Total time spent on today's encounter was 52 minutes which included time spent in counseling the patient/family regarding diagnosis and treatment plan as listed above, goals of care, and symptom management. Case was discussed with nursing staff,
specialists, and care coordinators/case management. All labs and imaging personally reviewed by me. Remainder the time spent in detailed review of previous records, lab data, imaging, and other medical provider documentation.
Original Note:
Today's Communication/Plan
-
Right heart catheterization scheduled for today for further evaluation of cardiopulmonary function.
Continue steroids and diuretics to treat inflammatory condition and volume overload, respectively.
Provide supplemental oxygen and other respiratory support as needed, weaning as tolerated.
Consider transfer to tertiary care center based on findings of right heart catheterization, clinical status.
Assessment / Plan
Assessment / Plan
Patient is a 65-year-old male with no significant past medical history before last week who was recently discharged from [facility] on 02/14/2025 after being admitted on 02/11/2025 for fever of unknown origin, pink macular rash on his trunk
and extremities, and arthralgias. During his hospital stay, the patient underwent an extensive infectious workup, which did not reveal the source of infection. The patient was without a fever for over 2 days before discharge, and he was discharged
on empiric doxycycline and ibuprofen for suspected infection or inflammatory disorder. The patient returned to [facility] due to hypoxia and lower extremity swelling bilaterally.
#Acute hypoxemic respiratory failure 2/2 suspected acute congestive heart failure 2/2 viral/inflammatory condition
Patient's vitals on presentation: BP 138/87, HR 116, RR 20, T 98.9, SpO2 89%
Patient presented with shortness of breath, lower extremity edema, lower abdominal edema
Patient developed acute respiratory distress (02/17), necessitating transfer to ICU for BiPAP
WBCs 44.3, increasing over prior days in the setting of steroid administration
proBNP: 5140
Troponins trended: 0.114 > 0.107 > 0.084 > 0.085 > 0.079
Echocardiogram (02/14): EF 60%. Normal diastolic function. No regional wall motion abnormalities.
Echocardiogram (02/17): No pericardial or pleural effusions. LVEF 50 to 55%. normal LV systolic function. Diastolic function indeterminate.
Consider AOSD based on febrile illness, recent history of rash on, recent history of arthralgias
Continue diuresis with IV Lasix due to fluid overload
Continue steroids (methylprednisolone) to reduce inflammation
Continue supplemental oxygen as needed, with weaning as tolerated
- Patient on 50 L of high flow oxygen this morning
Biologic medication anakinra unavailable at [facility] pharmacy, which has been discussed with patient and family
Additional infectious, rheumatological workup pending- Blood cx: NGTD
Consider further workup with additional cardiac imaging (CT/MRI), endomyocardial biopsy
Right heart catheterization scheduled for today for further evaluation of cardiac function, etiology of pulmonary edema
Patient may require transfer to tertiary care center if respiratory status does not improve
Cardiology, pulmonology, infectious disease, heme-onc following
#Acute kidney injury
Cr 1.1 this morning, improving from 1.5 on admission
UA (02/16): RBCs, 2+ vomiting, few bacteria, 1+ occult blood
Avoid nephrotoxic medications, including holding NSAIDs
Nephrology following
#Abdominal pain (resolved)
Patient denies any abdominal pain today, including with palpation
CT chest (02/17): Per radiologist, no evidence of central PE. Loculated small left pleural effusion. Trace right pleural effusion. Small pericardial effusion.
Relevant lab: T. bili 1.3, AST 76, ALT 48, alk phos 201.
CTAP (02/17): Increased small bilateral pleural effusions. Possible atelectasis.
Continue to monitor clinical status
ID following
DVT PPx: SC Lovenox
CODE STATUS: Full
Anticipated Discharge: > 48 hours
Anticipated Discharge: > 48 hours
Subjective/Interval History
-
Date of Service: February 21, 2025
Patient seen at bedside on hospital day #6. Nursing reports NAEO. Patient states he feels 'roughly the same' as yesterday. No current complaints. While at the bedside, patient is on 50 L of high flow oxygen.
Objective Data
-
Labs:
Laboratory Results
02/21/25
02:14
WBC 44.3 H*
Hgb 12.3 L
Hct 35.9 L
Plt Count 171
HCO3 36.8 H
Sodium 133 L
Potassium 3.9
Chloride 95 L
Carbon Dioxide 32 H
BUN 54 H
Creatinine 1.1
Glucose 208 H
Calcium 8.1 L
Total Bilirubin 1.6 H
AST 78 H
ALT 73 H
Alkaline Phosphatase 190 H
Vital Signs:
Vital Signs
Temp Pulse Resp BP Pulse Ox
98.1 F 88 28 95/78 95
02/21/25 11:30 02/21/25 10:12 02/21/25 10:12 02/21/25 10:12 02/21/25 11:31
I&O
02/20/25 02/21/25 02/22/25
06:59 06:59 06:59
Intake Total 150 / 150 770 / 770 480 / 480
Output Total 3175 / 3175 3400 / 3400 300 / 300
Balance -3025 / -3025 -2630 / -2630 180 / 180
Review of Systems
-
History Source: Patient
Constitutional: Denies Fever (None in the last 24 hours), Fatigue or Chills
EENT: Reports Other (Reports sinus congestion)
Respiratory: Denies Cough, Trouble Breathing or Wheezing
Cardiac: Denies Chest Pain, Palpitations or Syncope
Abdomen/GI: Denies Abdominal Pain, Nausea, Vomiting or Diarrhea
Genitourinary: Reports No Symptoms
Musculoskeletal: Reports Edema (Improving bilateral lower extremity edema); Denies Joint Pain or Joint Swelling
Skin: Denies Rash (Resolved prior to this admission)
Neuro: Denies Headache, Weakness, Numbness or Lightheadedness
Physical Exam
-
General: Well Developed, Well Nourished, No Apparent Distress, Conversant and Other (Appears more tired than in recent days); Negative Fever, Chills or Sweats
HEENT: Normocephalic, Atraumatic and Oxygen (50 L high flow)
Respiratory: Crackles (Fine crackles bilaterally) and Non Labored Respirations; Negative Wheezes or Accessory Resp Muscle Use
Cardiac: Regular Rhythm and S1/S2; Negative Murmur, Rub, Gallop, Tachycardic or Bradycardic
GI: Soft, Nontender and Normal Bowel Sounds
Musculoskeletal: Edema, Right Lower Extrem (1+ pitting edema, improving) and Edema, Left Lower Extrem (1+ pitting edema, improving)
Skin: Warm and Dry; Negative Rash or Jaundice
Neuro: Awake, AO x 3, No Motor Deficits and No Sensory Deficits; Negative Slurred Speech
Psych: Calm
--- NOTE | 2025-02-21 13:45 | PTCARENOTE ---
pt remains seated up in chair, sats improved to 96%, per Dr. Prieto, pt ok to use neti pot PRN. Pt not desaturating with use. Brother in room to visit. Pt in good spirits. Plan is for [facility] (will be last case) and then transfer to [place] afterward for
rheumatology care as per Dr. Dias.
--- NOTE | 2025-02-21 14:07 | W.PN.CARDCBS ---
Addendum entered and electronically signed by Amol Paulino DO 02/21/25 14:38:
I saw and examined the patient.
[facility] Psychiat[facility]'s note was reviewed and I agree with the note.
Comment:
Plan for RHC today to assess for cardiogenic vs noncardiogenic pulm edema.
If RHC shows noncardiogenic pulm edema low threshold for transfer to tertiary care center.
Cont IV diuresis
Repeat LVEF remains preserved with no significant pericardial effusion.
Cont steroids as per primary service
Discussed with primary service and firer bisque kiln
Original Note:
Today's Communication / Plan
-
RHC today to determine if this is cardiogenic or noncardiogenic pulmonary edema
Impression / Plan
-
PCP: None, used to follow with Dr. Damon who is now retired and needs a new PCP
Card: None prior to admission, initially seen by Dr Wu
Rheum: Scheduled to see Dr. Mary Dumont
Impression:
Admitted with acute hypoxic respiratory insufficiency and acute HFpEF 02/16/25
Recent admission for fever of unknown origin, respiratory failure, acute HFpEF and rash 02/10/25 until 02/15/25
given 9 L IVFs for support during febrile illness
Acute HFpEF
Small pericardial effusion on CT chest 02/16/25 that was not seen on echo 02/14/25
Elevated Troponin
Mediastinal adenopathy
Diffuse macular rash
Elevated LFTs
Hypokalemia
Echo 02/14/25: EF 60%, mild conc LVH, normal diastolic function, mild to mod MR, mild to mod TR with PAP 47 mmHg
Echo 02/17/25: EF 50 to 55% with mild LVH, no significant pericardial effusion.
Plan:
-Patient transferred from 4E to ICU on 02/17/25 with worsening hypoxia and suspected acute HFpEF. Patient diuresed with Lasix 80 mg IV BID and weight is down 9 lbs as of 02/21/25.
-Remains on high flow oxygen 02/21/25 despite diuresis. Plan is for RHC on 02/21/25 to determine volume status whether or not this is cardiogenic or noncardiogenic pulmonary edema.
-Initial Troponin 0.114 and trending down thereafter. No chest pain.
-This is a concern for adult onset Still's disease. Patient's mother, sister and maternal aunt have rheumatologic disease, myasthenia gravis, Marisa's thyroiditis and lupus. Patient was scheduled to see Dr. Dumont at Rheum office as a new patient on
02/21/25.
-Not sure if there is a role for GDMT as this appears to be iatrogenic, but Coreg 3.125 mg BID added for sinus tachycardia 02/18/25.
-Patient needs a PCP, Dr. Damon is retired.
HPI: Patient came to the ER 02/16/25 and was admitted with acute hypoxic respiratory failure and CHF, cardiology has been consulted. Patient was just admitted 02/11/25 until 02/15/25 with new onset fever, rash and arthralgias. Patient was seen by ID
and had imaging and labs. Blood cultures without growth. HIV, Hepatitis, parvovirus, Lyme and Rickettsia negative. ANTONI positive, ESR was 42 (now 54), CRP consistently greater than 270 and additional rheum labs pending. Ferritin was elevated at
>[id number] and hospitalist during that admission suspect adult onset Still's disease and started patient on ibuprofen 600 mg TID with reported improvement although patient and do not currently recall any specific improvement in arthralgias, but
rash might have improved. Patient was seen by Pulm for mediastinal adenopathy and RML lobe nodule, as his oxygenation deteriorated there was concern for CHF and then IVFs were stopped, but prior to that he received 9 L IVFs. Patient was given Lasix
40 mg IV x1 on 02/13/25 and 02/15/25, but was not discharged to home on Lasix even though admission weight was 208 lbs and discharge weight was 216 lbs. Patient continued on doxycycline at home in addition to the ibuprofen, but had ongoing SOB and was
hypoxic on home pulse ox test and so he came to the ER yesterday. pro-BNP was 5140, CT chest showed pulmonary edema and a small left pleural effusion and he was hypoxic and placed on 6 L NC. Patient given Lasix 40 mg IV x1 in the ER and then 40 mg
IV daily. Continues with arthralgias and change in mental status described as fogginess. Patient and deny chest pain. Initial Troponin was 0.114 and trended down thereafter. No acute ischemic changes. CT chest showed a small pericardial
effusion that was not seen on CT chest last admission and also not seen on echo last admission.
Progress Note - Station Mechanic
Subjective
Date of Service: February 21, 2025
He is still SOB
Objective
Labs:
02/21/25 02:14
02/21/25 02:14
Labs
Hgb 12.3 g/dL (13.0-18.0) L 02/21/25 02:14
Hct 35.9 % (39.0-52.0) L 02/21/25 02:14
Plt Count 171 10^3/uL (130-400) 02/21/25 02:14
PT 15.4 Sec (11.4-14.6) H 02/17/25 14:16
INR 1.17 02/17/25 14:16
APTT 24.3 Sec (23.4-35.0) 02/17/25 14:16
Sodium 133 mmol/L (135-145) L 02/21/25 02:14
Potassium 3.9 mmol/L (3.5-5.1) 02/21/25 02:14
BUN 54 mg/dl (9-20) H 02/21/25 02:14
Creatinine 1.1 mg/dL (0.7-1.3) 02/21/25 02:14
Glucose 208 mg/dl (70-99) H 02/21/25 02:14
Vital Signs and I&O:
Vital Signs
Temp Pulse Resp BP Pulse Ox
98.1 F 83 23 102/78 95
02/21/25 11:30 02/21/25 13:00 02/21/25 13:00 02/21/25 13:00 02/21/25 13:00
Vital Signs
Temp Pulse Resp BP Pulse Ox
98.1 F 83 23 102/78 95
02/21/25 11:30 02/21/25 13:00 02/21/25 13:00 02/21/25 13:00 02/21/25 13:00
Intake & Output
02/19/25 02/20/25 02/21/25 02/22/25
06:59 06:59 06:59 06:59
Intake Total 1920 / 1920 150 / 150 770 / 770 480 / 480
Output Total 2074 / 2074 3175 / 3175 3400 / 3400 300 / 300
Balance -155 / -155 -3025 / -3025 -2630 / -2630 180 / 180
Physical Exam
Physical Exam
GEN: NAD. AAOx3
HEENT: EOMI, MMM
LUNGS: High flow NC. Diffuse rales without wheeze
CV: SR/ST on tele.
EXT: No edema B/L
NEURO: Gross non-focal
--- NOTE | 2025-02-21 15:50 | CM ---
R Heart catheterization today. IV/steroids, AB and Lasix. Discharge POC: Awaiting medical stability for therapy to evaluate and make recommendations.
--- NOTE | 2025-02-21 15:51 | PTCARENOTE ---
pt sent to equipment operator/laborer/supervisor with 2 RNs at this time.
--- NOTE | 2025-02-21 16:10 | ITS.CL.CATH ---
Floor Assembler - Catheterization
Cardiac Catheterization
Procedure Report:
RIGHT HEART CATHETERIZATION
Date of Procedure: February 21, 2025
Referring: Kasia Mike.
PROCEDURE: 1. Right heart catheterization.
INDICATION: Assess invasive hemodynamics with ongoing significant hypoxemia and oxygen requirement.
Hemodynamics (mmHg):
RA (m) : 7
RV (s/d,m) : 21/02,
PA (s/d, m) : ,
PCWP (m) : 13
PA saturation: 57.0% on 50 L of high flow oxygen
AO saturation: 92.0% on 50 L of high flow oxygen
RA saturation: 58.5% on 50 L of high flow oxygen
Cardiac Output : 4.81 L/min by Jonathan calculation
Cardiac Index : 2.34 L/min/m-2 by Jonathan calculation
Systemic vascular resistance: 1300 dsc^(-5)
Pulmonary vascular resistance: 1.46 damon unit
RADIATION SUMMARY: Fluoro Time (min): 0.8, Dose (mGy): 16.7, DAP (Gy.cm2) : 1.8
CONCLUSION:
1. Near normal right and left-sided filling pressures with normal cardiac output.
Copy to: Kasia Mike.
Edwige Bob MD, FAC, [facility]
--- NOTE | 2025-02-21 17:02 | PTCARENOTE ---
Pt rec'd back to ICU room 3363 at 16:45, weaned to 50L/90% high flow on the way by RT, now back in room, handoff with helper animal laboratory RNs complete, plan discussed with Conner Quick, Lisbeth, and RT. Ok to continue attempts to wean 02 in order to
possibly transfer pt to tertiary care. Pt asking for to be updated as well, care team aware. Pt placed on midflow 15L with NRB -sat 89% at this time.
[2025-02-21 17:11] LABS: Glucose - Point of Care 242 mg/dl (70-99)
--- NOTE | 2025-02-21 17:17 | RESPNOTE ---
trial on midflow cannula for transfer to [facility]. on 15L midflow pt desatted to 85%. NRB applied and SPO2 improved to 90-91% on 15L & NRB @100%. Dr. Dias and Dr. Prieto updated. OK with pulmonary to remain on HFNC until actual transfer.
[2025-02-21] MEDS: NOVOLOG FLEXPEN 2 UNITS SC (17:21)
[2025-02-21] MEDS: NOVOLOG FLEXPEN-MODERATE RESISTANCE 3 UNITS SC (17:21)
--- NOTE | 2025-02-21 18:08 | PTCARENOTE ---
pt's fully updated by Dr. Prieto and stated she only wants to transfer to [facility] if absolutely necessary. Pharmacist also in room to assist patient and with understanding steps to obtain necessary non formulary medications.
Discussion of plan ongoing at this time.
--- NOTE | 2025-02-21 18:42 | W.PN.UPDATE ---
Update Note
Progress Note Update
We spoke with Dr. Ad Barney with [facility] critical care medicine, who agreed to accept Mr. 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 This transfer was explained in detail to the patient and his at
the bedside. However, patient and his would prefer to confirm with rheumatologists at [facility] regarding the availability of anakinra prior to transferring. Patient and his expressed understanding of the risks and benefits of this decision.
We reached out to the [facility] on-call automobile technician in an attempt to confirm availability of the drug prior to transfer, but there was no answer. A message was left with [facility] rheumatology.
--- NOTE | 2025-02-21 20:00 | PTCARENOTE ---
assumed care, pt sitting in chair, Ox3, c/o minimal belly pain but no need for medication, PURCELL and can make needs known, sinus tach on the monitor, trace to LE, + pulses, diminished and coarse throughout, tachypneic, HF 50L/100%, BSx4, pt voiding in
urinal, corner of R eye pink wound bed, R arm dressing dry and intact post cath, 20G RFA, 20G LA, family @ bedside and updated, call fernandez within reach, otherwise refer to documentation.
[2025-02-21] MEDS: SOLU-MEDROL 258 MG IV (21:10)
[2025-02-21 21:20] LABS: Glucose - Point of Care 240 mg/dl (70-99)
[2025-02-21] MEDS: NOVOLOG FLEXPEN 5 UNITS SC (21:36)
[2025-02-22] VITALS (15 sets, daily range): BP systolic 94–118; BP diastolic 66–81; BMI 30.6
--- NOTE | 2025-02-22 | PTCARENOTE ---
systems reviewed, pt sleeping with unlabored respirations, no changes from previous assessment, otherwise refer to documentation
--- NOTE | 2025-02-22 02:48 | DOWNTIME ---
There was a [employer] Client Stocking And Box Shop Supervisor Downtime on 02/22/2025 from 0100 to 02/22/2025 at 0220. Downtime documentation of patient's care, including medication administrations, has been reconciled in the electronic record per guidelines. Refer to the
patient's paper chart under the miscellaneous tab to see printed paper medication records and downtime forms.
[2025-02-22] MEDS: STERILE WATER FOR INJECTION 10 ML IV ×2 (03:19→10:04)
[2025-02-22] MEDS: MAXIPIME 2000 MG IV ×2 (03:19→10:03)
[2025-02-22 03:54] LABS: Hematocrit 36.5 % (39.0-52.0); Hemoglobin 12.3 g/dL (13.0-18.0); Mean Corp Hgb Conc. 33.7 g/dL (33.0-37.0); Mean Corpuscular Volume 88.2 fL (80.0-94.0); Platelet Count 199 10^3/uL (130-400); Red Cell Dist. Width 13.9 % (11.5-14.5)
--- NOTE | 2025-02-22 03:56 | PTCARENOTE ---
systems reviewed, labs sent, Poneto called and updated during downtime, weight obtained, otherwise refer to documentation
[2025-02-22 04:01] LABS: Fibrinogen 660 MG/DL (199-459)
[2025-02-22 04:25] LABS: ALT (SGPT) 63 U/L (0-50); AST (SGOT) 58 U/L (17-59); Albumin 2.4 g/dl (3.5-5.0); Alkaline Phosphatase 178 U/L (38-126); Blood Urea Nitrogen 70 mg/dl (9-20); Calcium 8.2 mg/dl (8.4-10.2); Carbon Dioxide 32 mmol/L (22-30); Chloride 95 mmol/L (98-107); Estimated Creatinine Clearance 59 ml/min; Glucose 199 mg/dl (70-99); Magnesium 2.6 mg/dl (1.6-2.3); Potassium 3.9 mmol/L (3.5-5.1); Sodium 131 mmol/L (135-145); Total Protein 5.9 g/dl (6.3-8.2); Triglycerides 198 mg/dl (10-149); eGFR 56.48
[2025-02-22 04:41] LABS: C-Reactive Protein 204.30 mg/L (0.0-10.00)
[2025-02-22 06:32] LABS: Ferritin > 10000.0 ng/ml (17.9-464.0)
[2025-02-22 07:59] LABS: Glucose - Point of Care 212 mg/dl (70-99)
--- NOTE | 2025-02-22 08:22 | W.PN.INTV ---
Today's Communication / Plan
Recommendations
- Continue pulse dose steroids (last day today)
- Continue trending LFTs, platelet count + fibrinogen level
- Diuresis stopped
- Continue to trend serum Na level; low sodium may partially be explained by reduced oral intake as patient is also hypochloremic with metabolic alkalosis
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
developed macrophage activation syndrome. Dr. Prieto spoke with Dr. Galeas (Resident in ICU at [facility]) and provided her with sign out.
Specimen Accessioner/pulmonary service will continue to follow along while patient remains here at [facility].
Assessment
-
65-year-old male with recent admission for 5-day history of fevers, 24 hours of diffuse rash, right conjunctivitis, myalgias. CT chest with nodule. Evaluation led to CHF possibility and possible underlying autoimmune condition, placed on lasix and
NSAIDs with plan for OP FU. Discharged 02/15. Returns with worsening SOB, fatigue, malaise. at bedside noting worsening symptoms. Returned to ER with leucocytosis, CT showing loculated effusion and small cardiac effusion, he was
reportedly 81% on RA at home. We are consulted for re-eval.
#1. Acute hypoxic respiratory failure, 81% on RA, due to pulmonary edema (suspected non-cardiogenic due to adult onset stills disease/MAS)
- Patient was started on BiPAP on 02/17 with aggressive IV diuresis, significant overnight improvement. 02/19, again back on high flow nasal cannula
-Continue high flow nasal cannula, titrating FiO2 + flow rate to maintain saturations >90-94%
- Follow-up chest x-ray shows improving pulmonary edema. BNP down from 5000 down to 1050
- Patient underwent RHC yesterday showing PCWP 13 with CO/CI 4.81/2.34, respectively, with PVR 1.46. This represents near normal right and left-sided filling pressures with normal cardiac output.
- Diuresis stopped
- Repeat echo with preserved ejection fraction
- CXR yesterday showed improved aeration in the right base, and similar retrocardiac opacification
- Patient is continued on cefepime and is s/p ceftriaxone
- Blood cultures have remained negative to date
- Continue to trend WBC and monitor temperature curve; repeat respiratory viral panel today is negative
#2. Pulmonary edema
- s/p diuresis; RHC showed no evidence of left-sided heart failure and no evidence of pulmonary hypertension
- Suspect patient has interstitial infiltrates with edema due to adult onset stills disease
#3. Small left loculated effusion
- Fairly small on imaging, no safe window for thoracentesis, high risk of pneumothorax if procedure were to be attempted
#4. Right middle lobe nodule, 7 mm, with Mediastinal adenopathy, 2.4 cm subcarinal lymph node
- Mediastinal lymphadenopathy likely reactive
- Will pursue outpatient CT surveillance, patient will follow-up with pulmonary clinic
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
- Ferritin and LFTs abnormal, concern for underlying Stills disease
- Extensive infectious workup unremarkable including respiratory viral panel
- Patient started on Solu-Medrol 02/17, subjectively reports feeling better.
- Patient has outpatient follow-up scheduled with rheumatology service.
- Fever improving since addition of steroids
- Started pulse dose steroids on 02/20 - will give x 3 days then wean after that
- Given patient's persistently elevated ferritin with elevated CRP and concern for macrophage activation syndrome, patient is awaiting transfer to [facility] given they have a rheumatology service, and patient may need additional immunomodulatory
medications like anakinra
- Oncology also consulted and bone marrow biopsy should also be considered to rule out HLH
#6. Suspected sleep disordered breathing
-Will pursue sleep study as outpatient
#7. Right eye conjunctivitis
- Topical erythromycin, clinically improving
DVT prophylaxis: HSQ
Patient is awaiting transfer to [facility] where rheumatology service can follow along given concern for inflammatory infiltrates with suspected adult onset stills disease; although fibrinogen is >360, there is still concern for macrophage activation
syndrome. Previous curbside discussion by Dr. Buckley with rheumatology, and patient subsequently started on pulse dose steroids. Dr. Prieto spoke with Dr. Galeas (Resident in ICU at [facility]) and provided her with sign out.
Critical care statement: A total of 38 minutes of critical care time was provided for this patient today. This includes management of unstable vital signs, evaluation of the patient at bedside, reviewing the patient�s pertinent medical records
including radiographs, microbiology, laboratory evaluations, and��discussion with primary team, consultants, pharmacy, nutrition, physical therapy, case management, charge nurse, critical care nursing, and respiratory therapy.
Diagnostic Data
Chest X-Ray: 02/13/25- No acute disease of the chest. Mild cardiomegaly. Stable.
CT Scan: CHEST 02/11/25- No CT evidence for an acute pulmonary process. 7 mm and 6 mm solid pulmonary nodules in the right middle lobe along the minor fissure. The [facility] Pulmonary Nodule Advisory Board will be notified. Mild mediastinal
lymphadenopathy, which is nonspecific but clinical correlation is recommended. Bilateral thyroid gland nodules. Recommend a follow-up thyroid ultrasound on a routine outpatient basis for further evaluation.
CT Chest 02/16/25- 1. No evidence of central pulmonary embolism.
2. There is a likely loculated small left pleural effusion with associated left-sided atelectasis. There is a possible trace right pleural effusion with right-sided atelectasis. There is suggestion of groundglass opacities and interlobular septal
thickening may represent mild edema.
3. Small pericardial effusion.
4. 1.9 cm hypodense nodule within the posterior left hemithyroid which a nonemergent thyroid ultrasound is recommended.
Echo: 02/14/25- Normal left ventricular chamber size. Normal left ventricular systolic function. Left ventricular ejection fraction is 60% by Tovar's method of discs. Normal regional wall motion. Mild concentric left ventricular hypertrophy.
Normal diastolic function. Mitral valve opens normally. Mildly thickened mitral valve leaflets. Mild to moderate mitral regurgitation. Indexed LA volume is within normal range (15-34 mL/m2). Tricuspid valve opens normally. Mild to moderate
tricuspid regurgitation. Estimated pulmonary artery pressure of 47 mmHg, assuming a right atrial pressure of 13 mmHg.
There is no evidence of vegetation seen. However if clinical suspicion is high would suggest RD.
Subjective Dataa
Subjective Data
Date of Service:
Date of Service: February 22, 2025
Chief Complaint: Specimen Accessioner Follow Up
Subjective:
Patient seen and evaluated this morning. Awaiting TRX to [facility] given concern for Stills disease. Remains on HFNC at 90%, saturating 95%. Heart rate 80 and BP 106/81. He is sitting in chair this morning eating breakfast in no acute distress.
Underwent RHC yesterday showing normal PCWP � diuresis stopped. He feels well today although still has secretions in his nose that he needs to blow out.
Review of Systems
General: Other (Negative unless mentioned above)
Objective Data
Data Reviewed
Vital Signs / I&O / Oxygen:
Vital Signs
Temp Pulse Resp BP Pulse Ox
98.3 F 84 24 106/81 93
02/22/25 08:08 02/22/25 09:00 02/22/25 09:00 02/22/25 09:00 02/22/25 09:28
Intake and Output
02/21/25 02/22/25 02/23/25
06:59 06:59 06:59
Intake Total 770 / 770 1336 / 1336
Output Total 3400 / 3400 1375 / 1375
Balance -2630 / -2630 -39 / -39
SaO2 93
Nasal Cannula flow liters per 50
minute
Physical Exam
General: Respiratory Distress (negative), Comfortable, Chills (negative) and Sweats (negative)
HEENT: Normocephalic and Anicteric
Cardiovascular: S1-S2, Rub (negative) and Peripheral Edema (+2 lower extremity pitting edema bilaterally)
Respiratory: Wheeze (negative), Crackles (Bilaterally), Rhonchi (negative), Non-Labored Respirations and Stridor (negative)
GI: Soft, Non Distended, Non Tender and Normal Bowel Sounds
Neurology: Awake, Alert, Oriented and Tremors (negative)
Skin: Warm, Dry, Cyanosis (negative) and Jaundice (negative)
Labs/Micro/Reports
Lab Data
02/22/25 03:34
02/22/25 03:34
Microbiology
02/22/25 04:00 Nasalpharynx Influenza Type A (PCR) - Final
Not Detected
02/22/25 04:00 Nasalpharynx Influenza Type A (H1) (PCR) - Final
Not Detected
02/22/25 04:00 Nasalpharynx Influenza Type A (H3) (PCR) - Final
Not Detected
02/22/25 04:00 Nasalpharynx Influenza Type B (PCR) - Final
Not Detected
02/22/25 04:00 Nasalpharynx Resp Syncytial Virus Type A (PCR) - Final
Not Detected
02/22/25 04:00 Nasalpharynx Resp Syncytial Virus Type B (PCR) - Final
Not Detected
02/22/25 04:00 Nasalpharynx Adenovirus DNA (PCR) - Final
Not Detected
02/22/25 04:00 Nasalpharynx Human Metapneumovirus (PCR) - Final
Not Detected
02/22/25 04:00 Nasalpharynx Parainfluenza Virus Type 1 (PCR) - Final
Not Detected
02/22/25 04:00 Nasalpharynx Parainfluenza Virus Type 2 (PCR) - Final
Not Detected
02/22/25 04:00 Nasalpharynx Parainfluenza Virus Type 3 (PCR) - Final
Not Detected
02/22/25 04:00 Nasalpharynx Parainfluenza Virus Type 4 - Final
Not Detected
02/22/25 04:00 Nasalpharynx Rhinovirus (PCR) - Final
Not Detected
02/16/25 20:49 Blood/Venous Blood Culture - Final
No Growth - Final Report
02/16/25 20:49 Blood/Venous Blood Culture - Final
No Growth - Final Report
02/17/25 08:38 Blood/Venous Blood Culture - Preliminary
No Growth in 4 days- Final report to follow
02/17/25 09:14 Blood/Venous Blood Culture - Preliminary
No Growth in 4 days- Final report to follow
[2025-02-22] MEDS: NOVOLOG FLEXPEN 2 UNITS SC ×2 (08:29→12:16)
[2025-02-22] MEDS: PROTONIX 40 MG PO (08:29)
[2025-02-22] MEDS: NOVOLOG FLEXPEN-MODERATE RESISTANCE 3 UNITS SC (08:30)
[2025-02-22] MEDS: COREG 3.125 MG PO (08:30)
[2025-02-22] MEDS: ERYTHROMYCIN 0.5% OPHTHALMIC OINTMENT 1 APPLIC RIGHT EYE ×2 (08:31→12:21)
[2025-02-22] MEDS: HEPARIN 5000 UNITS SC ×2 (08:31)
--- NOTE | 2025-02-22 08:39 | W.PN.UPDATE ---
Update Note
Progress Note Update
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
Diuretics have been stopped.
HR and bp stable
Echo stable.
Pt awaiting transfer for Stills disease and further management of noncardiogenic pulm edema.
Will sign off, please recall if needed. .
[2025-02-22] MEDS: TYLENOL 650 MG PO (08:51)
--- NOTE | 2025-02-22 09:20 | W.PN.ID1 ---
Date of Service
Date of Service: February 22, 2025
Today's Communication
Continue cefepime for possible acute PNA.
Assessment / Plan
# Suspect pneumonia -LLL
# FUO- suspected autoimmune/inflammatory (?Adult Onset Stills Disease)
# Recent diffuse macular rash (some small target lesions, small annular rings sparing palms/soles), Right conjunctivitis: resolved after start of round the clock ibuprofen
# Acute Hypoxemic resp failure - on highflow oxygen
# Troponin leak
# s/p volume overload
# Leukocytosis trending up (on steroid)
- Suspect inflammatory/autoimmune source of FUO, recent rash.
Fever, myalgias/arthralgias responsive to steroid
Of note ferritin >10,000, CRP >200.
ESR 54 normalized to 15 with steroid
Further rheumatology work-up in progress.
- For transfer to [place]
-Negative infectious disease work-up of FUO, thus far:
Prior CT chest x 2 no consolidations to suggest pneumonia
CT a/p x 2 negative intra-ab source
TTE x 2 no vegetations
CXR's negative
Blood cx's neg
Rapid Group A strep: negative
Anti-streptolysin: positive; DNAse-B ab: negative
Respiratory viral panel PCR x2 negative
Babesia smear negative
Anaplasma, Ehrlichia PCR negative
Lyme screen negative
RMSF IgG and IgM negative
Parvovirus IgG and IgM negative
Syphilis screen negative
HIV screen negative
Mycoplasma IgG and IgM negative
Leptospirosis IgM negative
Coxsackie, echovirus serologies pending
s/p recent empiric 6 days doxycycline (02/10 - 02/15)
-02/21 Right and Left heart catheterization- normal cardiac output.
Non-cardiac source of hypoxemic respiratory failure
- Consider bone marrow biopsy
- Continue cefepime 2gIV q8 (d2) to cover for possible acute pneumonia
Chief Complaint
-: Fever and Leukocytosis
Subjective / Review of Systems
Stable. Remains on high flow oxygen.
Vital Signs / Physical Exam
Vital Signs
Vital Signs
Temp Pulse Resp BP Pulse Ox
98.3 F 77 25 107/73 90
02/22/25 08:08 02/22/25 08:30 02/22/25 06:00 02/22/25 08:30 02/22/25 07:44
Physical Exam
Constitutional: Acutely Ill
Head: Other (no frontal or maxillary sinus tenderness)
Eyes: No Conjunctival Hemorrhage and Sclera Anicteric
Cardiovascular: Regular Rate and S1/S2; Negative Murmur
Pulmonary: Rales (bilateral)
Gastrointestinal: Soft, Non Tender, Non Distended and Normal Bowel Sounds
Genito-Urinary: Negative CVA Tenderness
Extremities: Negative Edema
Musculoskeletal: Negative Joint Swelling, Joint Effusion or Spinal Tenderness
Skin: Negative Rash
Neurological: AO x 3
Objective Data
Lab Data
Lab Results
02/22/25 03:34
02/22/25 03:34
ESR 15 mm/hour (0-20) 02/22/25 03:34
PT 15.4 Sec (11.4-14.6) H 02/17/25 14:16
INR 1.17 02/17/25 14:16
APTT 24.3 Sec (23.4-35.0) 02/17/25 14:16
Estimated Creat Clear 59 ml/min 02/22/25 03:34
Lactic Acid 1.6 mmol/L (0.7-2.0) 02/17/25 14:16
Total Bilirubin 1.3 mg/dl (0.2-1.3) 02/22/25 03:34
AST 58 U/L (17-59) 02/22/25 03:34
ALT 63 U/L (0-50) H 02/22/25 03:34
Alkaline Phosphatase 178 U/L (38-126) H 02/22/25 03:34
C-Reactive Protein 204.30 mg/L (0.0-10.00) H 02/22/25 03:34
Most recent labs reviewed.
Micro Results:
02/22/25 04:00 Influenza Type A (PCR) - Final
Nasalpharynx Not Detected
Influenza Type A (H1) (PCR) - Final
Not Detected
Influenza Type A (H3) (PCR) - Final
Not Detected
Influenza Type B (PCR) - Final
Not Detected
Resp Syncytial Virus Type A (PCR) - Final
Not Detected
Resp Syncytial Virus Type B (PCR) - Final
Not Detected
Adenovirus DNA (PCR) - Final
Not Detected
Human Metapneumovirus (PCR) - Final
Not Detected
Parainfluenza Virus Type 1 (PCR) - Final
Not Detected
Parainfluenza Virus Type 2 (PCR) - Final
Not Detected
Parainfluenza Virus Type 3 (PCR) - Final
Not Detected
Parainfluenza Virus Type 4 - Final
Not Detected
Rhinovirus (PCR) - Final
Not Detected
02/16/25 20:49 Blood Culture - Final
Blood/Venous No Growth - Final Report
02/16/25 20:49 Blood Culture - Final
Blood/Venous No Growth - Final Report
02/17/25 08:38 Blood Culture - Preliminary
Blood/Venous No Growth in 4 days- Final report to follow
02/17/25 09:14 Blood Culture - Preliminary
Blood/Venous No Growth in 4 days- Final report to follow
02/16/25 19:57 Influenza Types A & B (BESS) - Final
Nasal Swab Negative for Influenza A & B, NAAT
Negative results must be combined with clinical observations
and patient history.
Nucleic Acid Amplification test (NAAT)performed on the
[employer] platform.
02/16/[address]: No evidence of central pulmonary embolism. There is a likely loculated small left pleural effusion with associated left-sided atelectasis. There is a possible trace right pleural effusion with right-sided atelectasis. There is
suggestion of groundglass opacities and interlobular septal thickening may represent mild edema Small pericardial effusion. 1.9 cm hypodense nodule within the posterior left hemithyroid which a nonemergent thyroid ultrasound is recommended.
02/17/25: CT a/p Increased small bilateral pleural effusions with adjacent airspace opacities favored to represent atelectasis. Colonic diverticulosis. There is apparent mild wall thickening within the colon which are likely secondary to
underdistention.
02/17/25 TTE: Left ventricle is small in size. Normal left ventricular systolic function. Left ventricular ejection fraction is 50 to 55% visually. Mild concentric. left ventricular hypertrophy. Diastolic function indeterminate.
Care Review
Plan reviewed with: Nurse
--- NOTE | 2025-02-22 09:27 | PTCARENOTE ---
Pt rec'd from night RN in report. Maintaining sa02 in low 90s on HF 50L/90%. Pt is AOx3, slightly flat affect this am. All other vitals stable, medications and assessment as documented -see worklist. Lung sounds dim t/o, right base sl coarse. Lab
results noted. Plan discussed with patient, transfer to [place] is pending at this time. Pt assisted oob to chair with minimal assistance, CHG bath done and face washed. Pt eating breakfast, call fernandez in hand.Safe environment continues.
--- NOTE | 2025-02-22 10:23 | W.PN.ONC2 ---
Today's Communication / Plan
-
[facility] transfer pending
Impression
Impression
Acute hypoxic respiratory failure
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
suspect leukocytosis secondary to steroids +/- PNA
LLL PNA
02/21 Right and Left heart catheterization- normal cardiac output
GEE
Plan
Plan
continue management per rheumatology - pt awaiting anakinra
abx per ID
Patient being transferred to [place] for further management
Would recommend consideration of bone marrow biopsy for definitive r/o of HLH
Subjective/Objective
Subjective
afebrile, on high flow
no new complaints
Vital Signs:
Vital Signs
Temp Pulse Resp BP Pulse Ox
98.3 F 82 28 102/66 94
02/22/25 08:08 02/22/25 10:00 02/22/25 10:00 02/22/25 10:00 02/22/25 10:00
Lab Results:
Laboratory Data
WBC 57.0 10^3/uL (4.8-10.8) H* 02/22/25 03:34
Hgb 12.3 g/dL (13.0-18.0) L 02/22/25 03:34
Plt Count 199 10^3/uL (130-400) 02/22/25 03:34
PT 15.4 Sec (11.4-14.6) H 02/17/25 14:16
INR 1.17 02/17/25 14:16
APTT 24.3 Sec (23.4-35.0) 02/17/25 14:16
eGFR 56.48 02/22/25 03:34
Physical Exam
small target lesions, small annular rings sparing palms/soles
HEENT: Moist Mucous Membranes; No Jaundice
Cardiology: Normal Sinus Rhythm
Pulmonary: Rales and Other
GI: Soft
Extremities: Pulses Present and Edema (b/l LE trace ankle edema)
Neuro: Non Focal
--- NOTE | 2025-02-22 11:47 | PTCARENOTE ---
Pt requesting nasal spray, notified, orders rec'd. Continuing to wean 02, sat currently maintaining in low 90s on hi flow at 40L/60% fio2. Pt remains up in chair, safe environment maintained.
[2025-02-22] MEDS: NOVOLOG FLEXPEN-MODERATE RESISTANCE 7 UNITS SC (12:16)
[2025-02-22 12:24] LABS: Glucose - Point of Care 303 mg/dl (70-99)
--- NOTE | 2025-02-22 12:33 | PTCARENOTE ---
Pt assigned bed at [place], [facility] 9, Bed [address] at [address] ALS transportation arranged with pickup time scheduled for 14:45 per patient transportation driver Sheba. Phone number for report [phone]. [place] updated by phone.
MDs notified, discharge order placed.
--- NOTE | 2025-02-22 12:54 | W.PN.HOSP.TC ---
Addendum entered and electronically signed by Amauri Dias MD 02/22/25 13:35:
Seen and examined by me independently in collaboration with the medical anthropology director.
Lab data and imaging data reviewed.
Addendum as below :
Patient feels no worse but still remains on the high flow nasal cannula. No improvement in oxygen requirement. Chest without any reactive airways.
Lab data noted with continued rise in white count.
Cefepime has been started because of abnormal chest x-ray.
Had a discussion with rheumatology last night about the clinical concerns of adult onset stills disease and to rule out MAS. He would see inpatient in consultation once transferred to [facility] ICU. Patient and agreeable for transfer.
Transport set up for this afternoon.
Discussed with leveler.
Total time of discharge 35 minutes
Original Note:
Today's Communication/Plan
-
Continue steroids to treat inflammatory condition
Provide supplemental oxygen and other respiratory support as needed, weaning as tolerated in preparation for transfer
Plan for transfer to [place] ICU later this afternoon
Assessment / Plan
Assessment / Plan
Patient is a 65-year-old male with no significant past medical history before last week who was recently discharged from [facility] on 02/14/2025 after being admitted on 02/11/2025 for fever of unknown origin, pink macular rash on his trunk
and extremities, and arthralgias. During his hospital stay, the patient underwent an extensive infectious workup, which did not reveal the source of infection. The patient was without a fever for over 2 days before discharge, and he was discharged
on empiric doxycycline and ibuprofen for suspected infection or inflammatory disorder. The patient returned to [facility] due to hypoxia and lower extremity swelling bilaterally.
#Acute hypoxemic respiratory failure 2/2 suspected acute congestive heart failure 2/2 viral/inflammatory condition
#Suspected left lower lobe pneumonia
Patient's vitals on presentation: BP 138/87, HR 116, RR 20, T 98.9, SpO2 89%
Patient presented with shortness of breath, lower extremity edema, lower abdominal edema
Patient developed acute respiratory distress (02/17), necessitating transfer to ICU for BiPAP
WBCs 57.0, increasing over prior days in the setting of steroid administration
proBNP: 5140
Troponins trended: 0.114 > 0.107 > 0.084 > 0.085 > 0.079
Echocardiogram (02/14): EF 60%. Normal diastolic function. No regional wall motion abnormalities.
Echocardiogram (02/17): No pericardial or pleural effusions. LVEF 50 to 55%. normal LV systolic function. Diastolic function indeterminate.
Consider AOSD based on febrile illness, recent history of rash on, recent history of arthralgias
Diuretic discontinued, as patient no longer appears fluid overloaded
Continue steroids (methylprednisolone) to reduce inflammation
Per ID, continue cefepime for possible acute pneumonia
Continue supplemental oxygen as needed, with weaning as tolerated
- Patient on 50 L of high flow oxygen this morning
Biologic medication anakinra unavailable at [facility] pharmacy, which has been discussed with patient and family
Additional infectious, rheumatological workup pending- Blood cx: NGTD
Consider further workup with additional cardiac imaging (CT/MRI), endomyocardial biopsy, bone marrow biopsy
Right heart catheterization yesterday showed normal cardiac output and PCWP of 13 mmHg, indicating noncardiogenic etiology of pulmonary edema
Planning for discharge to [place] ICU later this afternoon
- [place] rheumatology confirmed that they will be able to provide anakinra to the patient for AOSD
Cardiology, pulmonology, infectious disease, heme-onc following
#Acute kidney injury
Cr 1.4 this morning, increased from 1.1 yesterday
Diuretic discontinued, as patient is no longer fluid overloaded
UA (02/16): RBCs, 2+ vomiting, few bacteria, 1+ occult blood
Avoid nephrotoxic medications, including holding NSAIDs
Monitor BMP
Nephrology following
#Abdominal pain (resolved)
Patient denies any abdominal pain today, including with palpation
CT chest (02/17): Per radiologist, no evidence of central PE. Loculated small left pleural effusion. Trace right pleural effusion. Small pericardial effusion.
Relevant lab: T. bili 1.3, AST 76, ALT 48, alk phos 201.
CTAP (02/17): Increased small bilateral pleural effusions. Possible atelectasis.
Continue to monitor clinical status
ID following
DVT PPx: SC Lovenox
CODE STATUS: Full
Anticipated Discharge: > 48 hours
Anticipated Discharge: Today
Subjective/Interval History
-
Date of Service: February 22, 2025
Patient is seen at the bedside on hospital day #7. Patient states he feels 'the same, a little better.' No current complaints. Amenable to plan for transfer to [place] later today.
Objective Data
-
Labs:
Laboratory Results
02/22/25
03:34
WBC 57.0 H*
Hgb 12.3 L
Hct 36.5 L
Plt Count 199
Sodium 131 L
Potassium 3.9
Chloride 95 L
Carbon Dioxide 32 H
BUN 70 H
Creatinine 1.4 H
Glucose 199 H
Calcium 8.2 L
Total Bilirubin 1.3
AST 58
ALT 63 H
Alkaline Phosphatase 178 H
Vital Signs:
Vital Signs
Temp Pulse Resp BP Pulse Ox
98.0 F 77 29 104/69 92
02/22/25 12:21 02/22/25 11:30 02/22/25 11:30 02/22/25 11:00 02/22/25 11:34
I&O
02/21/25 02/22/25 02/23/25
06:59 06:59 06:59
Intake Total 770 / 770 1336 / 1336 240 / 240
Output Total 3400 / 3400 1375 / 1375 400 / 400
Balance -2630 / -2630 -39 / -39 -160 / -160
Review of Systems
-
History Source: Patient
Constitutional: Reports Fatigue; Denies Fever or Chills
EENT: Reports Other (Dry nose)
Respiratory: Denies Cough, Hemoptysis, Trouble Breathing or Wheezing
Cardiac: Denies Chest Pain, Diaphoresis, Palpitations or Syncope
Abdomen/GI: Denies Abdominal Pain, Nausea, Vomiting or Diarrhea
Genitourinary: Denies Difficulty Voiding
Musculoskeletal: Denies Joint Pain or Edema
Neuro: Denies Dizzy, Headache, Weakness, Numbness or Lightheadedness
Physical Exam
-
General: Well Developed, Well Nourished, No Apparent Distress, Conversant and Other (Appears fatigued); Negative Fever or Chills
HEENT: Normocephalic, Atraumatic and Oxygen (50 L of high flow)
Respiratory: Non Labored Respirations and Decreased Breath Sounds (At the bases); Negative Wheezes, Crackles or Accessory Resp Muscle Use
Cardiac: Regular Rhythm and S1/S2; Negative Murmur, Rub, Gallop, Tachycardic or Bradycardic
GI: Soft, Nontender and Normal Bowel Sounds
Musculoskeletal: No Cyanosis, Edema, Right Lower Extrem (Trace edema) and Edema, Left Lower Extrem (Trace edema)
Skin: Warm and Dry; Negative Rash (Previous rash resolved)
Neuro: Awake, AO x 3, No Motor Deficits and No Sensory Deficits
Psych: Calm
[2025-02-22] MEDS: OCEAN, SALINE MIST 2 SPRAYS NASAL (13:06)
--- NOTE | 2025-02-22 13:54 | PTCARENOTE ---
Report given to URIAH Augustin at [place]. Pt maintains sa02 96% on 15L. Teeth brushed, belongings packed.
--- NOTE | 2025-02-22 14:39 | CM ---
Patient with Dx Acute hypoxemic respiratory failure, suspected CHF & pneumonia, possible Stills disease. O2 15L midflow. Plan transfer to [facility] today.
Notified by ammunition storage superintendent Ravindra has an available bed for patient today. He will be going to [facility] at [address] [place] [address]. He will be going to [place] [id number], bed 968.
Plan transfer to [facility] today by [facility] ambulance.
--- NOTE | 2025-02-22 16:09 | TRANSFER ---
Pt loaded on [facility] transport stretcher and sent to [facility] at 16:00. All belongings sent with patient.
--- NOTE | 2025-02-23 18:01 | W.DCSUMMARY ---
Discharge Summary
Discharge Data
Date of Admission: 02/16/25
Date of Discharge: 02/22/25
-
Pending Results: Yes
Additional Pending Results:
Serologies for coxsackie virus and echovirus were pending upon discharge
Hospital Course
Discharging Physician : Obey Wolff MD; Amauri Dias MD
Disposition : Acute care hospital (pending)
Primary care physician : None
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
Chronic Discharge diagnosis : N/A
Hospital Course : Mr. Serrato is a 65-year-old male with no significant past medical history before last week who was recently admitted to [facility] from 02/10/2025 to 02/15/2025 for fever of unknown origin, pink macular rash on his trunk
and extremities, and arthralgias. During that hospital stay, the patient underwent an extensive infectious workup, which did not reveal the source of infection. The patient had a leukocytosis throughout his hospital course. The patient was
without a fever for over 2 days before discharge, and he was discharged on empiric doxycycline and ibuprofen for suspected infection or inflammatory disorder. The patient subsequently returned to [facility] due to hypoxia and lower
extremity swelling bilaterally on 02/16/2025. The patient was tachycardic and tachypneic on presentation. The patient's labs were remarkable for leukocytosis with WBCs of 30.3 on presentation. Serial troponins were monitored, with the first level
of 0.114 being the peak before incremental decreases to 0.079. The patient underwent a chest CT, which showed a likely loculated small left pleural effusion with associated left-sided atelectasis, possible trace right pleural effusion with
right-sided atelectasis, and small pericardial effusion. A subsequent echocardiogram showed no pericardial or pleural effusions. The patient required oxygen for the duration of this hospital course. Initially, the patient was on low-flow oxygen,
but his oxygen requirements increased over the subsequent days. The patient was in acute respiratory distress on hospital day #2, which necessitated upgrade to the ICU for respiratory support with BiPAP. The patient improved overnight and no
longer required BiPAP. The patient underwent serial chest x-rays, which showed pulmonary edema that improved over the subsequent days. While in the ICU, the patient was primarily dependent on high flow nasal cannula for respiratory support. The
patient was administered IV Lasix 80 mg twice daily due to clinical evidence of fluid overload in order to improve his respiratory status. Labs revealed a proBNP of 5140 on hospital day #1, which decreased to 1310 by hospital day #5. The patient
was also administered 1 dose of empiric ceftriaxone 1 g out of concern for pneumonia, which was subsequently discontinued. An extensive infectious and rheumatological workup was once again undertaken, but it did not reveal an etiology of the
patient's condition. 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 Accordingly, empiric Solu-Medrol 125 mg IV push
followed by 40 mg IV twice daily was started on hospital day #2. This steroid regimen continued until hospital day #5, when pulse dose steroids were initiated for 3 days. The patient's white blood cell count omari from 30.3 on admission to 57.0 on
hospital day #7, though this was in the setting of steroid administration. Despite diuresis and steroid administration, the patient continued to have high oxygen requirements. The patient went for right heart catheterization on hospital day #6 to
further elucidate whether he was cardiogenic or noncardiogenic pulmonary edema. The RHC showed near normal right and left-sided filling pressures with normal cardiac output, with PCWP of 13 mmHg. The patient had a creatinine of 1.5 on
presentation. Patient's creatinine decreased incrementally to 1.1 Hospital day #6, before increasing to 1.4 on hospital day #7. This increase in creatinine Hospital day #7 is suspected to be secondary to the aggressive diuresis undertaken for the
patient's pulmonary edema. The diuresis was discontinued on hospital day #7, as the patient appeared euvolemic and kidney function was mildly decreased. A chest x-ray suggested possible left lower lobe pneumonia on hospital day #6. The patient
was started on cefepime 2 g 3 times daily. Given the potential diagnosis of AOSD, a discussion was initiated with the patient and his regarding a potential treatment with anakinra. Unfortunately, this medication is not available at the [facility]
pharmacy. 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 At this point, the medical team, patient, and his
considered transfer to a tertiary care facility, where the patient could receive enhanced rheumatological care and anakinra. The patient was accepted at [place], which confirmed the availability of anakinra if the patient were to be transferred. The
patient was ultimately transferred to the [facility] the [facility] ([facility]) on hospital day #7.
Of note, a 1.9 cm hypodense nodule within the posterior left hemithyroid was identified incidentally on chest CT. Outpatient follow-up with a thyroid ultrasound is recommended.
Important imaging findings :
Chest CT (02/16/2025)�IMPRESSION:
1. No evidence of central pulmonary embolism.
2. There is a likely loculated small left pleural effusion with associated left-sided atelectasis. There is a possible trace right pleural effusion with right-sided atelectasis. There is suggestion of groundglass opacities and interlobular septal
thickening may represent mild edema.
3. Small pericardial effusion.
4. 1.9 cm hypodense nodule within the posterior left hemithyroid which a nonemergent thyroid ultrasound is recommended.
Chest x-ray (02/17/2025)�IMPRESSION:
1. Evidence for moderate interstitial pulmonary edema. This has developed since the prior plain film exam
CT abdomen/pelvis (02/17/2025)�IMPRESSION:
1. Increased small bilateral pleural effusions with adjacent airspace opacities favored to represent atelectasis.
2. Colonic diverticulosis. There is apparent mild wall thickening within the colon which are likely secondary to underdistention.
3. Fat-containing right inguinal hernia.
Chest x-ray (02/19/2025)�IMPRESSION:
1. Perhaps minimally improved interstitial pulmonary edema.
Chest x-ray (02/20/2025)�IMPRESSION:
1. Prominence of the pulmonary interstitium again noted.
2. Increased bibasilar opacification which could represent atelectasis and small left pleural effusion. Cannot exclude left lower lobe pneumonia.
Chest x-ray (02/21/2025)�IMPRESSION:
1. Findings suggesting severe left lower lobe pneumonia. Stable.
2. Improved aeration of the right lower lung field. Probable atelectasis.
Procedure findings :
Right heart catheterization (02/21/2025)�Conclusion: Near normal right- and left-sided filling pressures with normal cardiac output
Discharge Plan
-
Patient Disposition: Acute Care Hospital
Discharge Orders:
Discharge Patient (As Directed); Ordered 02/22/25
Ordered By: Amauri Dias
Discharge Date and Time
Discharge Date/Time: 02/22/25 16:08
Print Language: HONDURAN
== END 2025-02-22 16:08 | disposition short-term general hospital (02) | DRG 545 ==
LOC: ICU 23:06
PROVIDERS: Emergency Medicine; Hospitalist; Internal Medicine; Internal Medicine Interventional Cardiology; Nurse Practitioner Primary Care; ADMITTING PHYSICIAN Internal Medicine; ATTENDING PHYSICIAN Internal Medicine; CONSULT PHYSICIAN Internal Medicine; CONSULT PHYSICIAN Internal Medicine Infectious Disease; EMERGENCY PHYSICIAN Emergency Medicine; OTHER PHYSICIAN Internal Medicine Cardiovascular Disease; OTHER PHYSICIAN Internal Medicine Hematology & Oncology
PROC: 4A023N6 Measurement of Cardiac Sampling and Pressure, Right Heart, Percutaneous Approach (ICD-10-PCS; 2025-02-21)
DX: M06.1 Adult-onset Still's disease (principal); I50.21 Acute systolic (congestive) heart failure; J96.01 Acute respiratory failure with hypoxia; J18.9 Pneumonia, unspecified organism; N17.9 Acute kidney failure, unspecified; J98.11 Atelectasis; I31.39 Other pericardial effusion (noninflammatory); E87.1 Hypo-osmolality and hyponatremia; R17 Unspecified jaundice; Z11.52 Encounter for screening for COVID-19; K57.30 Diverticulosis of large intestine without perforation or abscess without bleeding; K40.90 Unilateral inguinal hernia, without obstruction or gangrene, not specified as recurrent; Z87.891 Personal history of nicotine dependence; E87.6 Hypokalemia; H10.9 Unspecified conjunctivitis; Z82.0 Family history of epilepsy and other diseases of the nervous system
CPT/HCPCS: 36600; 71045; 71275; 74177; 80048; 80053; 80076; 81003; 81015; 82248; 82728; 82805; 82962; 83036; 83516; 83605; 83690; 83735; 83880; 84100; 84478; 84484; 85025; 85027; 85384; 85610; 85652; 85730; 86060; 86063; 86140; 86160; 86200; 86215; 86225; 86235; 86430; 86658; 86720; 86738; 87040; 87502; 87633; 87811; 93005; 93308; 93451; 94660; 99291; C1894; Q9967

== ENCOUNTER → 2025-05-09 15:07 | Outpatient (REF) | payer OTHER, SELFPAY ==
[2025-05-09 16:52] LABS: Blood Urea Nitrogen 15 mg/dl (9-20); Calcium 10.1 mg/dl (8.4-10.2); Carbon Dioxide 26 mmol/L (22-30); Chloride 104 mmol/L (98-107); Glucose 118 mg/dl (70-99); Potassium 4.3 mmol/L (3.5-5.1); Sodium 138 mmol/L (135-145); eGFR > 60.00
== END ==
LOC: REG 15:07
PROVIDERS: ATTENDING PHYSICIAN Nurse Practitioner Adult Health; FAMILY PHYSICIAN Internal Medicine
DX: Z09 Encounter for follow-up examination after completed treatment for conditions other than malignant neoplasm (principal)
CPT/HCPCS: 36415; 80048

== ENCOUNTER → 2025-05-11 16:24 | Outpatient (REF) | payer OTHER, SELFPAY | LOC: RAD 16:24 | PROVIDERS: ATTENDING PHYSICIAN Nurse Practitioner Adult Health; FAMILY PHYSICIAN Internal Medicine | DX: R91.1 Solitary pulmonary nodule (principal) | CPT/HCPCS: 71260; Q9967 ==